=== PATIENT | female | born 1955 | race Caucasian/White ===

== ENCOUNTER 2016-10-20 17:54 | Emergency (ER) | payer OTHER, MEDICAID ==
--- NOTE | 2016-10-20 18:13 | ER Document Report ---
ED Medical Screen (RME) - General Stated Complaint: LEG PAIN Notes: Patient is a 61-year-old female who presents emergency department via EMS complaining of leg cramps. Patient has a history of dementia, multiple strokes with contractures of her lower legs due to being bed bound on/off for the past 10 years. Per EMS and per patient she was started on physical therapy to help with the contractures of her legs about 3 weeks ago and since then has been having leg cramps on and off for the past 3 weeks. Patient states that her last physical therapy was last week. Otherwise patient denies any headache, chest pain, difficulty breathing, shortness of breath, abdominal pain, nausea, vomiting, diarrhea, constipation or urinary symptoms. TRAVEL OUTSIDE OF THE [place] IN LAST 30 DAYS: No - Related Data Allergies/Adverse Reactions: No Known Allergies Allergy (Verified 01/27/12 19:02) Past Medical History - Past Medical History Cardiac Medical History: Reports: Hx Hypertension Denies: Hx Coronary Artery Disease, Hx Heart Attack Pulmonary Medical History: Denies: Hx Asthma, Hx Bronchitis, Hx COPD, Hx Pneumonia, Hx Tuberculosis Neurological Medical History: Reports: Hx Cerebrovascular Accident - 2006, FROM BACTERIAL MENINGITIS PSEUDAMONAS, Hx Seizures - LAST IN 2008 Musculoskeltal Medical History: Denies Hx Arthritis Psychiatric Medical History: Reports: Hx Dementia, Hx Depression Past Surgical History: Reports: Hx Breast Surgery - L lumpectomy, Hx Hysterectomy, Hx Orthopedic Surgery - bilateral hip replacement, R rotator cuff repair, R ankle fx and reapir - Immunizations Hx Diphtheria, Pertussis, Tetanus Vaccination: No Physical Exam - Notes Notes: PHYSICAL EXAM GENERAL: Alert, interacts well. HEAD: Normocephalic, atraumatic. EYES: Pupils equal, round, and reactive to light. Extraocular movements intact. ENT: Oral mucosa moist, tongue midline. NECK: Full range of motion. Supple. Trachea midline. LUNGS: Clear to auscultation bilaterally, no wheezes, rales, or rhonchi. No respiratory distress. HEART: Regular rate and rhythm. No murmurs, gallops, or rubs. ABDOMEN: Soft, nondistended, nontender. No guarding, rebound, or rigidity.. Bowel sounds present in all 4 quadrants. EXTREMITIES: Contractures noted in bilateral lower extremities. No edema, radial and dorsalis pedis pulses 2/4 bilaterally. No cyanosis. NEUROLOGICAL: Alert and oriented x4 PSYCH: Normal affect, normal mood. SKIN: Warm, dry, normal turgor. No rashes or lesions noted.
[2016-10-20 18:59] LABS: ANION GAP 9 (5-19); BLOOD UREA NITROGEN 11 mg/dL (7-20); CALCIUM 9.2 mg/dL (8.4-10.2); CARBON DIOXIDE 27 mmol/L (22-30); CHLORIDE 102 mmol/L (98-107); CREATININE RESULT 0.84 mg/dL (0.52-1.25); GLUCOSE 104 mg/dL (75-110); MAGNESIUM 1.9 mg/dL (1.6-2.3); POTASSIUM 4.2 mmol/L (3.6-5.0)
--- NOTE | 2016-10-20 19:39 | ER Document Report ---
ED General - General Mode of Arrival: Medic Information source: Patient TRAVEL OUTSIDE OF THE [place] IN LAST 30 DAYS: No <DASHAWN SIMPSON - Last Filed: 10/20/16 22:58> <CHIRAG MARMOLEJO - Last Filed: 10/20/16 23:08> - General Chief Complaint: Leg Pain Stated Complaint: LEG PAIN Time Seen by Provider: 10/20/16 18:13 Notes: Patient is a 61-year-old female with a past medical history significant for bacterial meningitis that presents today with complains of right leg pain. Patient has a complicated history post meningitis, including inability to walk for the last two years. Patient apparently had an inpatient stay at [facility] recently and it was decided that the patient should undergo physical therapy to reverse the right leg contractures in hopes that the patient could walk again. at bedside states they decided to stop the physical therapy because the patient felt that it was making her pain worse. ( DASHAWN SIMPSON) - Related Data Allergies/Adverse Reactions: No Known Allergies Allergy (Verified 01/27/12 19:02) Past Medical History - General Information source: Patient - Social History Smoking Status: Never Smoker Cigarette use (# per day): No Frequency of alcohol use: None Drug Abuse: None Lives with: Spouse/Significant other Family History: Reviewed & Not Pertinent - Past Medical History Cardiac Medical History: Reports: Hx Hypertension Neurological Medical History: Reports: Hx Cerebrovascular Accident - 2006, FROM BACTERIAL MENINGITIS PSEUDAMONAS, Hx Seizures - LAST IN 2008 Psychiatric Medical History: Reports: Hx Dementia, Hx Depression Past Surgical History: Reports: Hx Breast Surgery - L lumpectomy, Hx Hysterectomy, Hx Orthopedic Surgery - bilateral hip replacement, R rotator cuff repair, R ankle fx and reapir - Immunizations Hx Diphtheria, Pertussis, Tetanus Vaccination: No Hx Pneumococcal Vaccination: 03/16/11 <DASHAWN SIMPSON - Last Filed: 10/20/16 22:58> Review of Systems - Review of Systems Constitutional: No symptoms reported EENT: No symptoms reported Cardiovascular: No symptoms reported Respiratory: No symptoms reported Gastrointestinal: No symptoms reported Genitourinary: No symptoms reported Female Genitourinary: No symptoms reported Musculoskeletal: See HPI, Other - right leg pain Skin: No symptoms reported Hematologic/Lymphatic: No symptoms reported Neurological/Psychological: No symptoms reported -: Yes All other systems reviewed and negative <DASHAWN SIMPSON - Last Filed: 10/20/16 22:58> Physical Exam <DASHAWN SIMPSON - Last Filed: 10/20/16 22:58> <JANELLE MARMOLEJOMY - Last Filed: 10/20/16 23:08> - Vital signs Vitals: Temp Pulse Resp BP Pulse Ox 98.4 F 94 18 100/52 L 93 10/20/16 19:58 10/20/16 19:58 10/20/16 19:58 10/20/16 19:58 10/20/16 19:58 - Notes Notes: Physical Exam: General: Alert, appears chronically ill. HEENT: Normocephalic. Atraumatic. PERRL. Extraocular movements intact. Oropharynx clear. Neck: Supple. Non-tender. Respiratory: No respiratory distress. Clear and equal breath sounds bilaterally. Cardiovascular: Regular rate and rhythm. Abdominal: Normal Inspection. Non-tender. No distension. Normal Bowel Sounds. Back: Non-tender. No deformity or step off. Extremities: Upper extremities: Normal inspection. Normal ROM. Lower extremities: RLE contracture, pain with attempted ROM of RLE. Neurological: Normal cognition. AAOx4. Normal speech. Psychological: Normal affect. Normal Mood. Skin: Warm. Dry. Normal color. (DASHAWN SIMPSON) Course - Laboratory Result Diagrams: 10/20/16 18:25 <DASHAWN SIMPSON - Last Filed: 10/20/16 22:58> - Laboratory Result Diagrams: 10/20/16 18:25 <CHIRAG MARMOLEJO - Last Filed: 10/20/16 23:08> - Re-evaluation Re-evalutation: 10/20/16 19:41 Patient presents the emergency department with her with chief plan leg cramps. Patient had been diagnosed a few years back with bacterial meningitis and was in a coma. They were getting ready to put her on hospice and said that she had no chance of survival. Her states that she woke up from the coma and initially was walking a little bit but then eventually developed frequent episodes of falling which required her to be primarily wheelchair- bound. He has been trying to get her into assisted living facility and at some morning Cindy ordered physical therapy for her contractures after not walking for over 2 years. They stop the physical therapy last week because they were making things worse. She occasionally gets cramps in the leg and contractures which is consistent with previous. He also states she has frontal lobe dementia. On examination she is awake and alert her blood pressure is very inaccurate because she moves around constantly so it is hard to get an accurate reading. I am uncertain to whether or not that blood pressure is elevated. For that reason I want her to keep her follow-up appointment on Thursday in addition to the fact that she can no longer undergo physical therapy her family doctor skin the need to come up with a plan for her. He mentioned that she has had braces in the past on her legs to try to keep her leg straight. I explained to them that I have no knowledge of this is an emergency physician but that the family doctor can make those type of arrangements. She is also on chronic pain medications for which she takes for this. Her electrolytes are negative no clinical concerns of DVT or acute vascular compromise and the symptoms are not new or different than they have been in the past. Have her follow-up with primary care physician on Thursday and discussed reasons for ED return sooner (CHIRAG MARMOLEJO) - Vital Signs Vital signs: Temp Pulse Resp BP Pulse Ox 98.4 F 94 18 100/52 L 93 10/20/16 20:25 10/20/16 19:58 10/20/16 20:25 10/20/16 19:58 10/20/16 20:25 Discharge <DASHAWN SIMPSON - Last Filed: 10/20/16 22:58> <CHIRAG MARMOLEJO - Last Filed: 10/20/16 23:08> - Discharge Clinical Impression: muscle spasms/contractures Condition: Stable Disposition: HOME, SELF-CARE Additional Instructions: You have been seen and evaluated for muscle spasm and contractures after stopping physical therapy about a week ago. You have requested bracing which I do not know anything about in the emergency department. Physical therapy is no longer going on your electrolytes look okay I want you to see her family doctor on Thursday as scheduled to discuss options in terms of medication. I do not think that you have a blood clot at this point in time and may benefit from massage this is some to talk to the primary care physician about. Return for increasing worsening or new symptoms Referrals: IRIS PAUL MD [Primary Care Provider] - (On Thursday as scheduled. Return for increasing worsening or new symptoms) Scribe Attestation: 10/20/16 19:40 I personally performed the services described in the documentation reviewed the documentation recorded by my scribe in my presence and it accurately and completely records my words and actions (CHIRAG MARMOLEJO) Scribe Documentation - Scribe Written by Scrmatthew:: Tiff Mims, 10/20/2016 2255 acting as scribe for :: Angel <DASHAWN SIMPSON - Last Filed: 10/20/16 22:58>
[2016-10-20 19:59] VITALS: BP 100/52
== END 2016-10-20 22:00 | disposition home or self-care (01) ==
LOC: ER 17:54
DX: M62.461 Contracture of muscle, right lower leg (principal); M62.838 Other muscle spasm; M79.604 Pain in right leg
CPT/HCPCS: 36415; 80048; 83735; 99283

== ENCOUNTER 2016-12-16 11:59 | Inpatient (IN) | payer OTHER, MEDICAID ==
[2016-12-16 12:31] LABS: PROTHROMBIN TIME 12.8 SEC (11.4-15.4)
[2016-12-16 12:39] LABS: ABSOLUTE BASOPHILS # (AUTO) 0.1 10^3/uL (0.0-0.2); ABSOLUTE EOSINOPHILS # (AUTO) 0.1 10^3/uL (0.0-0.6); ABSOLUTE LYMPHOCYTES (AUTO) 1.8 10^3/uL (0.5-4.7); ABSOLUTE MONOCYTES (AUTO) 0.7 10^3/uL (0.1-1.4); ABSOLUTE NEUT (AUTO) 4.7 10^3/uL (1.7-8.2); BASOPHILS % (AUTO) 0.7 % (0-2); EOSINOPHILS % (AUTO) 1.6 % (0-6); HEMATOCRIT 40.6 % (36.0-47.0); HEMOGLOBIN 13.7 g/dL (12.0-15.5); HGB HCT DIFFERENCE 0.5; LYMPHOCYTES % (AUTO) 24.4 % (13-45); MEAN CORPUSCULAR HEMOGLOBIN 27.8 pg (27.0-33.4); MEAN CORPUSCULAR HGB CONC 33.6 g/dL (32.0-36.0); MEAN CORPUSCULAR VOLUME 83 fl (80-97); MONOCYTES % (AUTO) 9.8 % (3-13); RED BLOOD COUNT 4.91 10^6/uL (3.72-5.28); RED CELL DISTRIBUTION WIDTH 16.1 % (11.5-14.0); SEGMENTED NEUTROPHILS % (AUTO) 63.5 % (42-78); WHITE BLOOD COUNT 7.4 10^3/uL (4.0-10.5)
--- NOTE | 2016-12-16 12:42 | ER Document Report ---
ED General - General Stated Complaint: POSSIBLE STROKE Time Seen by Provider: 12/16/16 12:06 Mode of Arrival: Medic Information source: Patient, Relative, Emergency Med Personnel Cannot obtain history due to: Other Notes: 61-year-old female history of pseudomonal bacterial meningitis with seizure disorder and strokes with contractures presents with seizure-like activity. Symptoms started approximately an hour prior to arrival. Patient found to be having shaking episodes was given medication by EMS and symptoms have since resolved. TRAVEL OUTSIDE OF THE [place] IN LAST 30 DAYS: No - HPI Onset: Just prior to arrival Onset/Duration: Sudden Quality of pain: No pain Severity: Moderate Pain Level: Denies Associated symptoms: Other Exacerbated by: Denies Relieved by: Denies Similar symptoms previously: Yes Recently seen / treated by doctor: Yes - Related Data Allergies/Adverse Reactions: No Known Allergies Allergy (Verified 01/27/12 19:02) Past Medical History - Social History Smoking Status: Never Smoker Cigarette use (# per day): No Chew tobacco use (# tins/day): No Smoking Education Provided: No Family History: Reviewed & Not Pertinent - Past Medical History Cardiac Medical History: Reports: Hx Hypertension Denies: Hx Coronary Artery Disease, Hx Heart Attack Pulmonary Medical History: Denies: Hx Asthma, Hx Bronchitis, Hx COPD, Hx Pneumonia, Hx Tuberculosis Neurological Medical History: Reports: Hx Cerebrovascular Accident - 2006, FROM BACTERIAL MENINGITIS PSEUDAMONAS, Hx Seizures - LAST IN 2008 Musculoskeltal Medical History: Denies Hx Arthritis Psychiatric Medical History: Reports: Hx Dementia, Hx Depression Past Surgical History: Reports: Hx Breast Surgery - L lumpectomy, Hx Hysterectomy, Hx Orthopedic Surgery - bilateral hip replacement, R rotator cuff repair, R ankle fx and reapir - Immunizations Hx Diphtheria, Pertussis, Tetanus Vaccination: No Hx Pneumococcal Vaccination: 03/16/11 Review of Systems - Review of Systems Notes: REVIEW OF SYSTEMS: CONSTITUTIONAL : Denies fever, chills, or sweats. Denies recent illness. EENT: Denies eye, ear, throat, or mouth pain or symptoms. Denies nasal or sinus congestion or discharge. Denies throat, tongue, or mouth swelling or difficulty swallowing. CARDIOVASCULAR: Denies chest pain. Denies palpitations or racing or irregular heart beat. Denies ankle edema. RESPIRATORY: Denies cough, cold, or chest congestion. Denies shortness of breath, difficulty breathing, or wheezing. GASTROINTESTINAL: Denies abdominal pain or distention. Denies nausea, vomiting , or diarrhea. Denies blood in vomitus, stools, or per rectum. Denies black, tarry stools. Denies constipation. GENITOURINARY: Denies difficulty urinating, painful urination, burning, frequency, blood in urine, or discharge. FEMALE GENITOURINARY: Denies vaginal bleeding, heavy or abnormal periods, irregular periods. Denies vaginal discharge or odor. MUSCULOSKELETAL: Denies back or neck pain or stiffness. Denies joint pain or swelling. SKIN: Denies rash, lesions or sores. HEMATOLOGIC : Denies easy bruising or bleeding. LYMPHATIC: Denies swollen, enlarged glands. NEUROLOGICAL: Seizure PSYCHIATRIC: Denies anxiety or stress. Denies depression, suicidal ideation, or homicidal ideation. ALL OTHER SYSTEMS REVIEWED AND NEGATIVE. PHYSICAL EXAMINATION: GENERAL: Chronically ill female HEAD: Atraumatic, normocephalic. EYES: Pupils equal round and reactive to light, extraocular movements intact, conjunctiva are normal. ENT: Nares patent, oropharynx clear without exudates. Moist mucous membranes. NECK: Normal range of motion, supple without lymphadenopathy LUNGS: Breath sounds clear to auscultation bilaterally and equal. No wheezes rales or rhonchi. HEART: Regular rate and rhythm without murmurs ABDOMEN: Soft, nontender, nondistended abdomen. No guarding, no rebound. No masses appreciated. Female : deferred Musculoskeletal: Bedbound contractures of the lower extremities. NEUROLOGICAL: Patient appears postictal PSYCH: Normal mood, normal affect. SKIN: Warm, Dry, normal turgor, no rashes or lesions noted. Dictation was performed using [employer] voice recognition software Physical Exam - Vital signs Vitals: Pulse Ox 95 12/16/16 12:01 Course - Re-evaluation Re-evalutation: 12/16/16 12:51 Patient immediately had stroke protocol performed I believe this may be secondary to seizure activity 12/16/16 13:49 pt continues to have seizure like actiivty after 12/16/16 13:50 [facility] paged 12/16/16 14:05 Dr Damon wants dilantin 20mg/kg loading dose 12/16/16 14:07 They will have hospitalist call me, for the placement 12/16/16 14:28 [facility] 10 12/16/16 14:29 Dr Walls accepts for transfer - Vital Signs Vital signs: Temp Pulse Resp BP Pulse Ox 14 143/60 H 90 L 12/16/16 13:01 12/16/16 13:01 12/16/16 13:01 - Laboratory Result Diagrams: 12/16/16 12:10 12/16/16 12:10 Laboratory results interpreted by me: 12/16/16 12/16/16 12/16/16 12:10 12:10 12:10 RDW 16.1 H Direct Bilirubin 0.5 H TSH 0.06 L Free T4 2.37 H - Diagnostic Test Radiology reviewed: Image reviewed, Reports reviewed Discharge - Discharge Clinical Impression: Status epilepticus Condition: Fair Disposition: [facility] Referrals: IRIS PAUL MD [Primary Care Provider] - Follow up as needed
--- NOTE | 2016-12-16 12:45 | RADIOLOGY REPORT (SQ) ---
EXAM DESCRIPTION: CT HEAD WITHOUT COMPLETED DATE/TIME: 12/16/2016 12:22 pm REASON FOR STUDY: bed t1 stroke alert COMPARISON: [address] brain exams since 2006, most recently 01/27/2012 MRI brain 03/04/2007 TECHNIQUE: Axial images acquired through the brain without intravenous contrast. Images reviewed wi th bone, brain and subdural windows. Images stored on PACS. All CT scanners at this facility use dose modulation, iterative reconstruction, and/or weight based d osing when appropriate to reduce radiation dose to as low as reasonably achievable (ALARA). [facility]: Dose Right [facility]: CareDose [facility]: Dose Right [facility]: Teradose 4D [facility]: [employer] Technologies RADIATION DOSE: Up-to-date CT equipment and radiation dose reduction techniques were employed. CTDIv ol: 64.6 mGy. DLP: 1163 mGy-cm. mGy. LIMITATIONS: Motion artifact FINDINGS: Motion artifact throughout the study. On limited images without motion artifact, no gross CT evidence of acute large territory ischemic vj nge, acute intracranial hemorrhage, mass effect, or midline shift. There is subcortical white matter disease throughout the bilateral frontal and parietal lobes, in a d istribution suggesting watershed ischemia in the past. This is similar compared to previous studies. Old lacunar infarct right lateral basal ganglia. There is prominence of the anterior interhemispheric fissure from frontal atrophy, similar compared t o previous studies. Limited view of the calvarium and sinuses unremarkable. IMPRESSION: Motion artifact. No gross acute changes. Extensive subcortical white matter low attenuation in the bifrontal and biparietal regions in a osmin agittal watershed distribution from remote prior ischemic change. This is similar compared to studie s dating back to 2006 EVIDENCE OF ACUTE STROKE: NO. COMMENT: Pertinent findings on the imaging study reported as a CRITICAL RESULT to MENDEZ BLOOM DO at12:20 on 12/16/2016. Category of Critical Result: CT code stroke Quality ID # [id number]: Final reports with documentation of one or more dose reduction techniques (e.g., Au tomated exposure control, adjustment of the mA and/or kV according to patient size, use of iterative reconstruction technique) TECHNICAL DOCUMENTATION: JOB ID: [id number] 1960[employer] All Rights Reserved
[2016-12-16 12:53] LABS: ALANINE AMINOTRANSFERASE 22 U/L (9-52); ALKALINE PHOSPHATASE 89 U/L (38-126); ANION GAP 14 (5-19); ASPARTATE AMINO TRANSFERASE 18 U/L (14-36); BILIRUBIN,DIRECT 0.5 mg/dL (0.0-0.4); BILIRUBIN,TOTAL 0.5 mg/dL (0.2-1.3); BLOOD UREA NITROGEN 13 mg/dL (7-20); CARBON DIOXIDE 22 mmol/L (22-30); CHLORIDE 103 mmol/L (98-107); CREATINE KINASE 64 U/L (30-135); CREATININE RESULT 0.72 mg/dL (0.52-1.25); GLUCOSE 104 mg/dL (75-110); POTASSIUM 3.8 mmol/L (3.6-5.0); SODIUM 139.4 mmol/L (137-145); TOTAL PROTEIN 6.6 g/dL (6.3-8.2)
[2016-12-16 13:11] LABS: CREATINE KINASE MB 1.09 ng/mL (<4.55)
[2016-12-16 13:12] LABS: TROPONIN I < 0.012 ng/mL
[2016-12-16] MEDS ORDERED: LORAZEPAM INJ 2 MG/1 ML VIAL IV ONE (13:41)
[2016-12-16] MEDS ORDERED: LORAZEPAM INJ 2 MG/1 ML VIAL ONE (13:44)
[2016-12-16] MEDS ORDERED: LEVETIRACETAM 1500 MG/NACL-ISO 1,500 MG/100 ML RTUPB IV SCH (13:45)
[2016-12-16] MEDS ORDERED: DIAZEPAM INJ 10 MG/2 ML DISP.SYRIN IV ONE (13:50)
[2016-12-16 13:58] LABS: FREE T3 3.69 pg/mL (2.77-5.27)
[2016-12-16] MEDS ORDERED: PHENYTOIN SODIUM INJ/PF 250 MG/5 ML SDV IV ONE (14:07)
--- NOTE | 2016-12-16 14:07 | RADIOLOGY REPORT (SQ) ---
EXAM DESCRIPTION: CHEST SINGLE VIEW COMPLETED DATE/TIME: 12/16/2016 1:36 pm REASON FOR STUDY: bed t1 stroke alert COMPARISON: CT chest 08/02/2013 AP chest 10/16/2015 EXAM PARAMETERS: NUMBER OF VIEWS: One view. TECHNIQUE: Single frontal radiographic view of the chest acquired. RADIATION DOSE: NA LIMITATIONS: None. FINDINGS: LUNGS AND PLEURA: No opacities, masses or pneumothorax. No pleural effusion. MEDIASTINUM AND HILAR STRUCTURES: Retrocardiac air-fluid levels from moderate size hiatal hernia. HEART AND VASCULAR STRUCTURES: Heart normal in size. Normal vasculature. BONES: No acute findings. HARDWARE: None in the chest. OTHER: No other significant finding. IMPRESSION: MODERATE SIZE HIATAL HERNIA. NO ACUTE RADIOGRAPHIC FINDING IN THE CHEST. TECHNICAL DOCUMENTATION: JOB ID: [id number]
[2016-12-16 14:12] LABS: THYROID STIMULATING HORMONE 0.06 uIU/mL (0.47-4.68)
[2016-12-16] MEDS ORDERED: HALOPERIDOL LACTATE INJ 5 MG/1 ML VIAL IV ONE (15:05)
[2016-12-16] MEDS ORDERED: DIPHENHYDRAMINE HCL 50 MG/ML VIAL IV ONE (15:06)
[2016-12-16 15:23] LABS: APPEARANCE,URINE CLEAR; BILIRUBIN,URINE NEGATIVE (NEGATIVE); GLUCOSE, URINE NEGATIVE (NEGATIVE); KETONES,URINE TRACE mg/dL (NEGATIVE); LEUKOCYTE ESTERASE,URINE NEGATIVE (NEGATIVE); NITRITE,URINE NEGATIVE (NEGATIVE); PROTEIN,URINE NEGATIVE (NEGATIVE); URINE SPECIFIC GRAVITY 1.014; UROBILINOGEN,URINE NEGATIVE mg/dL (<2.0)
[2016-12-16] MEDS ORDERED: FENTANYL CITRATE INJ/PF 100 MCG/2 ML AMPUL IV ONE (15:40)
[2016-12-16] MEDS ORDERED: FENTANYL 100 MCG/HR PATCH.TD72 TD ONE (15:41)
--- NOTE | 2016-12-16 18:19 | EKG REPORT ---
SEVERITY:- NORMAL ECG - SINUS RHYTHM : Confirmed by: Lisset Price MD 16-Dec-2016 18:18:41
--- NOTE | 2016-12-16 18:29 | PDOC H&P ---
History of Present Illness Admission Date/PCP: IRIS PAUL MD Patient complains of: Seizures History of Present Illness: MARIE SEGURA is a 61 year old female into the emergency room due to change in mental status. Per ER when patient was seen in the emergency department patient was in status. Pt was loaded with Phenytoin and Keppra. Pt was accepted to outside but no bed available. Outside facility states that they would be able to take patient in 24-48 hours. Past Medical History Cardiac Medical History: Reports: Hypertension Denies: Coronary Artery Disease, Myocardial Infarction Pulmonary Medical History: Denies: Asthma, Bronchitis, Chronic Obstructive Pulmonary Disease (COPD), Pneumonia, Tuberculosis Neurological Medical History: Reports: Seizures - LAST IN 2008 Musculoskeltal Medical History: Denies: Arthritis Psychiatric Medical History: Reports: Dementia, Depression Hematology: Reports: Anemia Past Surgical History Past Surgical History: Reports: Hysterectomy, Orthopedic Surgery - bilateral hip replacement, R rotator cuff repair, R ankle fx and reapir Social History Smoking Status: Never Smoker Frequency of Alcohol Use: None Hx Recreational Drug Use: No Hx Prescription Drug Abuse: No Family History Family History: Reviewed & Not Pertinent Parental Family History Reviewed: No - Due to mental status Children Family History Reviewed: NA - Due to mental status Sibling(s) Family History Reviewed.: NA - Due to mental status Medication/Allergy Allergies/Adverse Reactions: No Known Allergies Allergy (Verified 01/27/12 19:02) Review of Systems ROS unobtainable: Due to mental status - Patient moving extremities babbling looking around the room nurse states that reports that this is her normal behavior but patient not able to answer questions to review of systems Physical Exam Vital Signs: Temp Pulse Resp BP Pulse Ox 97 21 H 160/93 H 96 12/16/16 11:59 12/16/16 17:00 12/16/16 16:01 12/16/16 15:01 Intake & Output 12/15/16 12/16/16 12/17/16 06:59 06:59 06:59 Weight 85.6 kg General appearance: PRESENT: mild distress, well-developed, well-nourished, other - Patient lying in bed moving all extremities looking around room babbling Head exam: PRESENT: atraumatic, normocephalic Eye exam: PRESENT: conjunctiva pink, EOMI. ABSENT: scleral icterus Ear exam: PRESENT: normal external ear exam Mouth exam: PRESENT: moist, tongue midline Neck exam: ABSENT: carotid bruit, JVD, lymphadenopathy, thyromegaly Respiratory exam: PRESENT: clear to auscultation michael. ABSENT: rales, rhonchi, wheezes Cardiovascular exam: PRESENT: RRR. ABSENT: diastolic murmur, rubs, systolic murmur Pulses: PRESENT: normal dorsalis pedis pul Vascular exam: PRESENT: normal capillary refill GI/Abdominal exam: PRESENT: normal bowel sounds, soft. ABSENT: distended, guarding, mass, organolmegaly, rebound, tenderness Rectal exam: PRESENT: deferred Extremities exam: PRESENT: full ROM. ABSENT: calf tenderness, clubbing, pedal edema Neurological exam: PRESENT: alert, awake Psychiatric exam: PRESENT: agitated Skin exam: PRESENT: dry, intact, warm. ABSENT: cyanosis, rash Results Laboratory Results: 12/16/16 12:10 12/16/16 12:10 12/16/16 12/16/16 12/16/16 12:10 12:10 12:10 WBC 7.4 RBC 4.91 Hgb 13.7 Hct 40.6 MCV 83 MCH 27.8 MCHC 33.6 RDW 16.1 H Plt Count 244 Seg Neutrophils % 63.5 Lymphocytes % 24.4 Monocytes % 9.8 Eosinophils % 1.6 Basophils % 0.7 Absolute Neutrophils 4.7 Absolute Lymphocytes 1.8 Absolute Monocytes 0.7 Absolute Eosinophils 0.1 Absolute Basophils 0.1 Sodium 139.4 Potassium 3.8 Chloride 103 Carbon Dioxide 22 Anion Gap 14 BUN 13 Creatinine 0.72 Est GFR ( Amer) > 60 Est GFR (Non-Af Amer) > 60 Glucose 104 Calcium 10.0 Total Bilirubin 0.5 AST 18 ALT 22 Alkaline Phosphatase 89 Total Protein 6.6 Albumin 4.0 TSH 0.06 L Free T4 2.37 H Free T3 pg/mL 3.69 Urine Color Urine Appearance Urine pH Ur Specific Rosalia Urine Protein Urine Glucose (UA) Urine Ketones Urine Blood Urine Nitrite Ur Leukocyte Esterase Urine WBC (Auto) Urine RBC (Auto) 12/16/16 14:52 WBC RBC Hgb Hct MCV MCH MCHC RDW Plt Count Seg Neutrophils % Lymphocytes % Monocytes % Eosinophils % Basophils % Absolute Neutrophils Absolute Lymphocytes Absolute Monocytes Absolute Eosinophils Absolute Basophils Sodium Potassium Chloride Carbon Dioxide Anion Gap BUN Creatinine Est GFR ( Amer) Est GFR (Non-Af Amer) Glucose Calcium Total Bilirubin AST ALT Alkaline Phosphatase Total Protein Albumin TSH Free T4 Free T3 pg/mL Urine Color YELLOW Urine Appearance CLEAR Urine pH 6.0 Ur Specific Rosalia 1.014 Urine Protein NEGATIVE Urine Glucose (UA) NEGATIVE Urine Ketones TRACE H Urine Blood NEGATIVE Urine Nitrite NEGATIVE Ur Leukocyte Esterase NEGATIVE Urine WBC (Auto) 1 Urine RBC (Auto) 0 12/16/16 12/16/16 12:10 12:10 Creatine Kinase 64 CK-MB (CK-2) 1.09 Troponin I < 0.012 Impressions: Chest X-Ray 12/16/16 12:02 IMPRESSION: MODERATE SIZE HIATAL HERNIA. NO ACUTE RADIOGRAPHIC FINDING IN THE CHEST. Head CT 12/16/16 12:02 IMPRESSION: Motion artifact. No gross acute changes. Extensive subcortical white matter low attenuation in the bifrontal and biparietal regions in a parasagittal watershed distribution from remote prior ischemic change. This is similar compared to studies dating back to 2006 EVIDENCE OF ACUTE STROKE: NO. Assessment & Plan - Diagnosis (1) Status epilepticus Is this a current diagnosis for this admission?: Yes Plan: Continue phenytoin and Keppra. Patient received loading dose of phenytoin in the emergency department (2) History of seizure disorder Is this a current diagnosis for this admission?: Yes Plan: Patient loaded with phenytoin and Keppra. Will contact pharmacy for maintenance dose of phenytoin. Continue Keppra. (3) History of meningitis Is this a current diagnosis for this admission?: Yes Plan: supportive (4) History of CVA (cerebrovascular accident) Is this a current diagnosis for this admission?: Yes Plan: supportive care (5) DVT prophylaxis Is this a current diagnosis for this admission?: Yes Plan: SCDS - Time Time Spent: 30 to 50 Minutes Anticipated discharge: Other
[2016-12-16] MEDS: LORAZEPAM INJ 2 MG/1 ML VIAL IV PRN (20:30)
[2016-12-16] MEDS: ACETAMINOPHEN 650 MG SUPP.RECT PR PRN (21:28)
[2016-12-16] MEDS: MORPHINE SULFATE 10 MG/ML INJ IV PRN (22:59)
[2016-12-16] MEDS: PHENYTOIN SODIUM INJ/PF 100 MG/2 ML SDV IV SCH (23:46)
[2016-12-17 00:57] LABS: URINE BARBITURATES SCREEN NEGATIVE; URINE METHADONE SCREEN NEGATIVE; URINE PHENCYCLIDINE SCREEN NEGATIVE
[2016-12-17 01:04] LABS: URINE OPIATES LOW UNCONFIRMED POSITIVE
[2016-12-17] MEDS: MORPHINE SULFATE 10 MG/ML INJ IV PRN ×3 (02:45→20:35)
[2016-12-17] MEDS ORDERED: LEVETIRACETAM INJ/PF 500 MG/5 ML SDV IV SCH (03:00)
[2016-12-17] MEDS ORDERED: LEVETIRACETAM 750 MG in NORMAL SALINE 100 ML IV SCH (03:00)
[2016-12-17] MEDS ORDERED: LEVETIRACETAM INJ/PF 500 MG/5 ML SDV IV ONE (03:22)
[2016-12-17 04:22] LABS: ABSOLUTE BASOPHILS # (AUTO) 0.1 10^3/uL (0.0-0.2); ABSOLUTE LYMPHOCYTES (AUTO) 1.5 10^3/uL (0.5-4.7); ABSOLUTE NEUT (AUTO) 7.9 10^3/uL (1.7-8.2); BASOPHILS % (AUTO) 0.6 % (0-2); HEMATOCRIT 37.1 % (36.0-47.0); HEMOGLOBIN 12.7 g/dL (12.0-15.5); LYMPHOCYTES % (AUTO) 14.3 % (13-45); MEAN CORPUSCULAR HEMOGLOBIN 27.9 pg (27.0-33.4); MEAN CORPUSCULAR HGB CONC 34.1 g/dL (32.0-36.0); MEAN CORPUSCULAR VOLUME 82 fl (80-97); MONOCYTES % (AUTO) 9.6 % (3-13); RED BLOOD COUNT 4.54 10^6/uL (3.72-5.28); SEGMENTED NEUTROPHILS % (AUTO) 75.5 % (42-78); WHITE BLOOD COUNT 10.5 10^3/uL (4.0-10.5)
[2016-12-17 04:27] LABS: ALANINE AMINOTRANSFERASE 30 U/L (9-52); ALKALINE PHOSPHATASE 88 U/L (38-126); ANION GAP 13 (5-19); ASPARTATE AMINO TRANSFERASE 25 U/L (14-36); BILIRUBIN,DIRECT 0.4 mg/dL (0.0-0.4); BILIRUBIN,TOTAL 0.6 mg/dL (0.2-1.3); BLOOD UREA NITROGEN 12 mg/dL (7-20); CALCIUM 9.6 mg/dL (8.4-10.2); CARBON DIOXIDE 24 mmol/L (22-30); CHLORIDE 108 mmol/L (98-107); CREATININE RESULT 0.78 mg/dL (0.52-1.25); GLUCOSE 159 mg/dL (75-110); MAGNESIUM 1.7 mg/dL (1.6-2.3); POTASSIUM 3.8 mmol/L (3.6-5.0); SODIUM 144.8 mmol/L (137-145); TOTAL PROTEIN 6.5 g/dL (6.3-8.2)
[2016-12-17 05:12] LABS: THYROID STIMULATING HORMONE 0.02 uIU/mL (0.47-4.68)
[2016-12-17] MEDS: PHENYTOIN SODIUM INJ/PF 100 MG/2 ML SDV IV SCH ×4 (05:16→23:52)
[2016-12-17] MEDS: LORAZEPAM INJ 2 MG/1 ML VIAL IV PRN ×2 (11:00→20:19)
[2016-12-17 11:10] LABS: APPEARANCE ALL TUBES CLEAR; RBC AVERAGE 34.5; RBC DILUENT USED NONE USED; RBC DILUTION FACTOR 1; RBC SIDE 1 38; RBC SIDE 2 31; TOTAL RBC SQUARES COUNTED 225
[2016-12-17 11:11] LABS: WHITE BLOOD CELL,CSF 3 /uL (0-5)
[2016-12-17] MEDS ORDERED: VANCOMYCIN HCL INJ 1000 MG VIAL IV ONE (11:15)
[2016-12-17 11:23] LABS: H. INFLUENZAE TYPE B AG NEGATIVE (NEGATIVE); S. PNEUMONIAE AG NEGATIVE (NEGATIVE); STREP. GROUP B AG NEGATIVE (NEGATIVE)
[2016-12-17 11:26] LABS: CSF CULTURED REQUIRED CSF CULTURE ORDERED (CSFY)
[2016-12-17] MEDS ORDERED: VANCOMYCIN HCL 0 MG in DEXTROSE 5%-WATER 250 ML IV NR (11:30)
--- NOTE | 2016-12-17 11:48 | PDOC PROGRESS REPORT ---
Subjective Progress Note for:: 12/17/16 Subjective:: She was seen earlier this morning. Nursing reports the patient has multiple fevers throughout night. Nursing also reports the patient has been yelling out throughout the night and this morning. When patient was admitted yesterday ER did not report that patient was febrile nor were there any documentation to support that patient was febrile. Family was present at time of my encounter. Patient denied any neck pain and denied any eye photosensitivity. Physical Exam Vital Signs: Temp Pulse Resp BP Pulse Ox 99.9 F 106 H 20 126/67 H 96 12/17/16 08:00 12/17/16 07:54 12/17/16 08:25 12/17/16 08:25 12/17/16 08:25 Intake & Output 12/16/16 12/17/16 12/18/16 06:59 06:59 06:59 Output Total 730 230 Balance -730 -230 Weight 86.1 kg General appearance: PRESENT: well-developed, well-nourished, other - Laying in bed yelling however patient was following commands and able to answer yes and no questions Head exam: PRESENT: atraumatic, normocephalic Eye exam: PRESENT: conjunctiva pink, EOMI. ABSENT: scleral icterus Ear exam: PRESENT: normal external ear exam Mouth exam: PRESENT: moist, tongue midline Neck exam: ABSENT: carotid bruit, JVD, lymphadenopathy, thyromegaly Respiratory exam: PRESENT: clear to auscultation michael. ABSENT: rales, rhonchi, wheezes Cardiovascular exam: PRESENT: RRR. ABSENT: diastolic murmur, rubs, systolic murmur Pulses: PRESENT: normal dorsalis pedis pul Vascular exam: PRESENT: normal capillary refill GI/Abdominal exam: PRESENT: normal bowel sounds, soft. ABSENT: distended, guarding, mass, organolmegaly, rebound, tenderness Rectal exam: PRESENT: deferred Extremities exam: PRESENT: full ROM. ABSENT: calf tenderness, clubbing, pedal edema Neurological exam: PRESENT: alert, awake, oriented to person Psychiatric exam: PRESENT: agitated Skin exam: PRESENT: dry, intact, warm. ABSENT: cyanosis, rash Results Laboratory Results: 12/17/16 03:56 12/17/16 03:56 12/17/16 12/17/16 12/17/16 03:56 03:56 03:56 WBC 10.5 RBC 4.54 Hgb 12.7 Hct 37.1 MCV 82 MCH 27.9 MCHC 34.1 RDW 16.0 H Plt Count 221 Seg Neutrophils % 75.5 Lymphocytes % 14.3 Monocytes % 9.6 Eosinophils % 0.0 Basophils % 0.6 Absolute Neutrophils 7.9 Absolute Lymphocytes 1.5 Absolute Monocytes 1.0 Absolute Eosinophils 0.0 Absolute Basophils 0.1 Sodium 144.8 Potassium 3.8 Chloride 108 H Carbon Dioxide 24 Anion Gap 13 BUN 12 Creatinine 0.78 Est GFR ( Amer) > 60 Est GFR (Non-Af Amer) > 60 Glucose 159 H Calcium 9.6 Magnesium 1.7 Total Bilirubin 0.6 AST 25 ALT 30 Alkaline Phosphatase 88 Total Protein 6.5 Albumin 4.0 TSH 0.02 L Free T4 2.68 H Fluid Tube Number CSF Volume CSF Appearance CSF Color CSF WBC CSF RBC CSF Glucose CSF Total Protein 12/17/16 12/17/16 12/17/16 10:10 10:10 10:10 WBC RBC Hgb Hct MCV MCH MCHC RDW Plt Count Seg Neutrophils % Lymphocytes % Monocytes % Eosinophils % Basophils % Absolute Neutrophils Absolute Lymphocytes Absolute Monocytes Absolute Eosinophils Absolute Basophils Sodium Potassium Chloride Carbon Dioxide Anion Gap BUN Creatinine Est GFR ( Amer) Est GFR (Non-Af Amer) Glucose Calcium Magnesium Total Bilirubin AST ALT Alkaline Phosphatase Total Protein Albumin TSH Free T4 Fluid Tube Number 3 CSF Volume 6.0 CSF Appearance CLEAR CSF Color COLORLESS CSF WBC 3 CSF RBC 38 CSF Glucose 104 H CSF Total Protein 42 Impressions: Chest X-Ray 12/16/16 12:02 IMPRESSION: MODERATE SIZE HIATAL HERNIA. NO ACUTE RADIOGRAPHIC FINDING IN THE CHEST. Head CT 12/16/16 12:02 IMPRESSION: Motion artifact. No gross acute changes. Extensive subcortical white matter low attenuation in the bifrontal and biparietal regions in a parasagittal watershed distribution from remote prior ischemic change. This is similar compared to studies dating back to 2007 EVIDENCE OF ACUTE STROKE: NO. Assessment & Plan - Diagnosis (1) Status epilepticus Is this a current diagnosis for this admission?: Yes Plan: We will continue patient on phenytoin and Keppra. Patient appears to be at baseline. Awaiting family to help confirm the patient is currently at baseline. There has been no further episodes of seizure activity. Awaiting transfer to [facility] for continuation of care. (2) Meningitis Is this a current diagnosis for this admission?: Yes Plan: Concern for meningitis: Patient had LP done this morning due to patient's persistent fevers. Patient's blood cultures and urine culture are pending. We will place patient on Rocephin and vancomycin. (3) Viral illness Is this a current diagnosis for this admission?: Yes Plan: Concern for possible viral syndrome: We will check for flu. Viral studies pending. (4) History of seizure disorder Is this a current diagnosis for this admission?: Yes Plan: We will continue phenytoin and Keppra (5) History of meningitis Is this a current diagnosis for this admission?: Yes Plan: Supportive. (6) Hyperthyroidism Is this a current diagnosis for this admission?: Yes Plan: Secondary to Medication: Will reduce dose of Synthroid. (7) Hypothyroidism Is this a current diagnosis for this admission?: Yes Plan: Will reduce dose of synthroid. (8) History of CVA (cerebrovascular accident) Is this a current diagnosis for this admission?: Yes Plan: supportive care (9) DVT prophylaxis Is this a current diagnosis for this admission?: Yes Plan: SCDS - Time Time Spent with patient: 25-34 minutes Anticipated discharge: [facility] - Plan is to transfer patient to [facility] once bed is available
--- NOTE | 2016-12-17 12:05 | RADIOLOGY REPORT (SQ) ---
EXAM DESCRIPTION: LUMBAR PUNCTURE; FLUORO/NEEDLE PLACEMENT/SPINE COMPLETED DATE/TIME: 12/17/2016 10:20 am REASON FOR STUDY: Concern for Meningitis; MENINGITIS COMPARISON: CT brain 12/16/2016 FLUOROSCOPY TIME: 22 seconds 1 digital radiographic image saved to PACS. TECHNIQUE: Fluoroscopic guided lumbar puncture. LIMITATIONS: None. PROCEDURE: After written consent and assessment were obtained, the patient was brought into the fluo roscopy room and placed prone on the table. The patient's lower back was prepped in a sterile fashio n and an entry site was selected under live fluoroscopic guidance. The entry site was anesthetized wi th 2 mL of 1% lidocaine. A 20 gauge needle was advanced through the skin and into the thecal sac at t he right paracentral L2-3 level. After approximately 6 ml was drained, the needle was removed and a sterile bandage was placed of the site. Specimens were sent to the lab for testing. A fluoroscopic spot image was saved to PACS confirming level access. FINDINGS: Clear CSF Opening pressure 10 cm of water, closing pressure 9 cm of water. IMPRESSION: Lumbar puncture under fluoroscopy. No immediate complication. COMMENT: Patient medication list reviewed: Yes- Quality ID# [id number]:Eligible professional attests to doc umenting in the medical record they obtained, updated, or reviewed the patient's current medications. . Quality ID 145: Final reports for procedures using fluoroscopy that document radiation exposure marizol kelsey, or exposure time and number of fluorographic images (if radiation exposure indices are not avail able) TECHNICAL DOCUMENTATION: JOB ID: [id number] [employer]- All Rights Reserved
[2016-12-17] MEDS ORDERED: CEFTRIAXONE 2 GM/D5W RTU 2 GM/50 ML RTUPB IV ONE (12:15)
[2016-12-17] MEDS ORDERED: VANCOMYCIN HCL 1,250 MG in DEXTROSE 5%-WATER 250 ML IV ONE (12:30)
[2016-12-17] MEDS: LEVETIRACETAM 750 MG in NORMAL SALINE 100 ML IV SCH (17:01)
[2016-12-17] MEDS: ACETAMINOPHEN 650 MG SUPP.RECT PR PRN (20:18)
[2016-12-17] MEDS: VANCOMYCIN HCL 1,000 MG in DEXTROSE 5%-WATER 250 ML IV SCH (21:58)
[2016-12-18] MEDS: LORAZEPAM INJ 2 MG/1 ML VIAL IV PRN ×2 (02:00→10:50)
[2016-12-18] MEDS: LEVETIRACETAM 750 MG in NORMAL SALINE 100 ML IV SCH ×2 (06:07→17:26)
[2016-12-18] MEDS: PHENYTOIN SODIUM INJ/PF 100 MG/2 ML SDV IV SCH ×3 (06:07→17:26)
[2016-12-18] MEDS: VANCOMYCIN HCL 1,000 MG in DEXTROSE 5%-WATER 250 ML IV SCH ×2 (09:45→21:17)
[2016-12-18] MEDS: MORPHINE SULFATE 10 MG/ML INJ IV PRN (09:45)
[2016-12-18] MEDS ORDERED: METOPROLOL TARTRATE 25 MG TABLET PO ONE (12:00)
[2016-12-18] MEDS ORDERED: CLONAZEPAM 1 MG TABLET PO ONE (12:00)
--- NOTE | 2016-12-18 12:00 | PDOC PROGRESS REPORT ---
Subjective Progress Note for:: 12/18/16 Subjective:: Nursing reports the patient is still febrile and tachycardic. Patient states that she is starting to feel better. Physical Exam Vital Signs: Temp Pulse Resp BP Pulse Ox 99.9 F 128 H 20 138/117 H 95 12/17/16 08:00 12/18/16 08:00 12/18/16 08:23 12/18/16 08:23 12/18/16 08:23 Intake & Output 12/17/16 12/18/16 12/19/16 06:59 06:59 06:59 Intake Total 1580 710 Output Total 730 1835 120 Balance -730 -255 590 Weight 86.1 kg 87.1 kg General appearance: PRESENT: no acute distress, disheveled, well-developed, well -nourished Head exam: PRESENT: atraumatic, normocephalic Eye exam: PRESENT: conjunctiva pink, EOMI. ABSENT: scleral icterus Ear exam: PRESENT: normal external ear exam Mouth exam: PRESENT: moist, tongue midline Neck exam: ABSENT: carotid bruit, JVD, lymphadenopathy, thyromegaly Respiratory exam: PRESENT: clear to auscultation michael. ABSENT: rales, rhonchi, wheezes Cardiovascular exam: PRESENT: tachycardia, other - Regular rate and rhythm no murmurs appreciated Pulses: PRESENT: normal dorsalis pedis pul Vascular exam: PRESENT: normal capillary refill GI/Abdominal exam: PRESENT: normal bowel sounds, soft. ABSENT: distended, guarding, mass, organolmegaly, rebound, tenderness Rectal exam: PRESENT: deferred Extremities exam: PRESENT: other - Patient moving all extremities, no tenderness to palpation of shoulder or elbow bilaterally and no tenderness to palpation of knee bilaterally Neurological exam: PRESENT: alert, awake, oriented to person. ABSENT: motor sensory deficit Psychiatric exam: PRESENT: agitated Skin exam: PRESENT: dry, intact, warm. ABSENT: cyanosis, rash Results Laboratory Results: 12/17/16 03:56 12/17/16 03:56 Impressions: Chest X-Ray 12/16/16 12:02 IMPRESSION: MODERATE SIZE HIATAL HERNIA. NO ACUTE RADIOGRAPHIC FINDING IN THE CHEST. Head CT 12/16/16 12:02 IMPRESSION: Motion artifact. No gross acute changes. Extensive subcortical white matter low attenuation in the bifrontal and biparietal regions in a parasagittal watershed distribution from remote prior ischemic change. This is similar compared to studies dating back to 2006 EVIDENCE OF ACUTE STROKE: NO. Guidance Fluoroscopy 12/17/16 00:00 IMPRESSION: Lumbar puncture under fluoroscopy. No immediate complication. Lumbar Puncture 12/17/16 08:19 IMPRESSION: Lumbar puncture under fluoroscopy. No immediate complication. Assessment & Plan - Diagnosis (1) Status epilepticus Is this a current diagnosis for this admission?: Yes Plan: We will continue patient on phenytoin and Keppra. Patient has not had any additional seizure activities. (2) Febrile Is this a current diagnosis for this admission?: Yes Plan: Source of fever still unknown. Patient had LP and CSF fluid has been evaluated which does not appear to indicate infection. Will order MRI of brain to evaluate for possible viral etiology i.e. herpes. In the meantime will add acyclovir to meningitis treatment. Patient's viral cultures are currently pending. Called to see if herpes PCR could be added however lab states that there was not enough fluid. Patient currently being screened for flu which is currently pending. (3) Meningitis Is this a current diagnosis for this admission?: Yes Plan: Concern for meningitis: Patient had LP done this morning due to patient's persistent fevers. Patient's blood and urine cultures demonstrated no growth patient's CSF fluid has also demonstrated no growth. Patient will have MRI of brain and will be placed on acyclovir until viral studies are known. (4) Viral illness Is this a current diagnosis for this admission?: Yes Plan: Concern for possible viral syndrome: flu pending. Viral studies pending. (5) History of seizure disorder Is this a current diagnosis for this admission?: Yes Plan: We will continue phenytoin and Keppra (6) History of meningitis Is this a current diagnosis for this admission?: Yes Plan: Supportive. (7) Hyperthyroidism Is this a current diagnosis for this admission?: Yes Plan: Secondary to Medication: Will reduce dose of Synthroid. (8) Hypothyroidism Is this a current diagnosis for this admission?: Yes Plan: Will reduce dose of synthroid. (9) History of CVA (cerebrovascular accident) Is this a current diagnosis for this admission?: Yes Plan: supportive care (10) DVT prophylaxis Is this a current diagnosis for this admission?: Yes Plan: SCDS - Time Time Spent with patient: 25-34 minutes Medications reviewed and adjusted accordingly: Yes
[2016-12-18] MEDS: CEFTRIAXONE 2 GM/D5W RTU 2 GM/50 ML RTUPB IV SCH (13:04)
[2016-12-18] MEDS: ACYCLOVIR SODIUM 900 MG in NORMAL SALINE 250 ML IV SCH ×2 (14:47→21:20)
[2016-12-18] MEDS ORDERED: INFLUENZA ADLT QUAD (36MOS+) 2017-18 VAC 0.5 ML SYR IM PRN (16:06)
--- NOTE | 2016-12-18 16:16 | RADIOLOGY REPORT (SQ) ---
EXAM DESCRIPTION: MRI HEAD WITHOUT COMPLETED DATE/TIME: 12/18/2016 3:50 pm REASON FOR STUDY: Seizure Disorder COMPARISON: MRI brain 03/12/2007 CT brain 12/16/2016 TECHNIQUE: Multiplanar imaging includes non-contrasted T1, T2, FLAIR, and diffusion with ADC map seq uences. Images stored on PACS. LIMITATIONS: Motion artifact throughout the study FINDINGS: Very limited study due to patient motion artifact. Again, there is extensive encephalomalacia in the bifrontal and biparietal subcortical white matter i n a watershed type distribution, similar compared to MRI brain dating back to 2006. There is bifrontal atrophy with widening at the anterior interhemispheric fissure, unchanged. Enlarged perivascular spaces bilateral basal ganglia. No gross evidence of acute large territory ischemic change. No intracranial hemorrhage, mass effect, or midline shift. IMPRESSION: Very limited study. Chronic findings similar compared to MRI brain 03/04/2007 EVIDENCE OF ACUTE STROKE: NO. TECHNICAL DOCUMENTATION: JOB ID: [id number] [employer]- All Rights Reserved
[2016-12-18] MEDS: ACETAMINOPHEN 650 MG SUPP.RECT PR PRN (17:27)
[2016-12-18] MEDS: METOPROLOL TARTRATE 25 MG TABLET PO SCH (21:19)
[2016-12-19] MEDS: PHENYTOIN SODIUM INJ/PF 100 MG/2 ML SDV IV SCH ×2 (05:42)
[2016-12-19] MEDS: ACYCLOVIR SODIUM 900 MG in NORMAL SALINE 250 ML IV SCH ×3 (05:46→21:11)
[2016-12-19] MEDS: LEVETIRACETAM 750 MG in NORMAL SALINE 100 ML IV SCH ×2 (05:46→19:13)
[2016-12-19] MEDS: ACETAMINOPHEN 325 MG TABLET PO PRN ×3 (05:51→22:04)
[2016-12-19] MEDS: METOPROLOL TARTRATE 25 MG TABLET PO SCH ×2 (09:43→21:10)
[2016-12-19] MEDS: LORAZEPAM INJ 2 MG/1 ML VIAL IV PRN ×2 (09:43→22:05)
[2016-12-19] MEDS: LEVOTHYROXINE SODIUM 0.1 MG TABLET PO SCH (09:45)
[2016-12-19] MEDS: VANCOMYCIN HCL 1,000 MG in DEXTROSE 5%-WATER 250 ML IV SCH ×2 (11:22→22:21)
--- NOTE | 2016-12-19 14:24 | PDOC PROGRESS REPORT ---
Subjective Progress Note for:: 12/19/16 Subjective:: Spoke to patient's this morning who states that he was wondering if patient could be discharged home. Explained to patient that she has been febrile for the last several days and source of fever needs to be determined. was somewhat upset that patient is still waiting for bed at [facility]. Physical Exam Vital Signs: Temp Pulse Resp BP Pulse Ox 97.7 F 107 H 20 122/73 97 12/19/16 11:34 12/19/16 11:34 12/19/16 11:34 12/19/16 11:34 12/19/16 11:34 Intake & Output 12/18/16 12/19/16 12/20/16 06:59 06:59 06:59 Intake Total 1980 2568 Output Total 1835 1745 Balance 145 823 Weight 87.1 kg 87.1 kg General appearance: PRESENT: no acute distress, well-developed, well-nourished, other - Sleeping. Head exam: PRESENT: atraumatic, normocephalic Ear exam: PRESENT: normal external ear exam Mouth exam: PRESENT: moist, tongue midline Neck exam: ABSENT: carotid bruit, JVD, lymphadenopathy, thyromegaly Respiratory exam: PRESENT: clear to auscultation michael. ABSENT: rales, rhonchi, wheezes Cardiovascular exam: PRESENT: RRR. ABSENT: diastolic murmur, rubs, systolic murmur Pulses: PRESENT: normal dorsalis pedis pul GI/Abdominal exam: PRESENT: normal bowel sounds, soft. ABSENT: distended, guarding, mass, organolmegaly, rebound, tenderness Rectal exam: PRESENT: deferred Extremities exam: PRESENT: other - Right knee bent no warmth noted left knee with no warmth noted Neurological exam: PRESENT: other - Sleeping Skin exam: PRESENT: dry, intact, warm, other - Right knee with abrasions noted but no evidence of infection.. ABSENT: cyanosis, rash Results Laboratory Results: 12/17/16 03:56 12/17/16 03:56 Impressions: Chest X-Ray 12/16/16 12:02 IMPRESSION: MODERATE SIZE HIATAL HERNIA. NO ACUTE RADIOGRAPHIC FINDING IN THE CHEST. Head CT 12/16/16 12:02 IMPRESSION: Motion artifact. No gross acute changes. Extensive subcortical white matter low attenuation in the bifrontal and biparietal regions in a parasagittal watershed distribution from remote prior ischemic change. This is similar compared to studies dating back to 2006 EVIDENCE OF ACUTE STROKE: NO. Guidance Fluoroscopy 12/17/16 00:00 IMPRESSION: Lumbar puncture under fluoroscopy. No immediate complication. Lumbar Puncture 12/17/16 08:19 IMPRESSION: Lumbar puncture under fluoroscopy. No immediate complication. Head MRI 12/18/16 00:00 IMPRESSION: Very limited study. Chronic findings similar compared to MRI brain 03/04/2007 EVIDENCE OF ACUTE STROKE: NO. Assessment & Plan - Diagnosis (1) Status epilepticus Is this a current diagnosis for this admission?: Yes Plan: Patient has been seizure-free. Will discontinue phenytoin.. (2) Febrile Is this a current diagnosis for this admission?: Yes Plan: Source of fever still unknown. Patient had LP and CSF fluid has been evaluated which does not appear to indicate infection. Will order MRI of brain to evaluate for possible viral etiology i.e. herpes. In the meantime will add acyclovir to meningitis treatment. Patient's viral cultures are currently pending. Called to see if herpes PCR could be added however lab states that there was not enough fluid. Patient currently being screened for flu which is currently pending. CSF fluid has not demonstrated any growth of bacterial organism. Patient has been afebrile since acyclovir has been started unsure if this is indicative of possible viral etiology. Will continue IV antibiotics for 1 more day and discontinue tomorrow once CSF cultures are negative for 48 hours. (3) Meningitis Is this a current diagnosis for this admission?: Yes Plan: We will continue current antibiotic regimen with antiviral. Will discontinue antibiotics tomorrow once cultures have been negative for 48 hours. (4) Viral illness Is this a current diagnosis for this admission?: Yes Plan: Concern for possible viral syndrome: flu pending. Viral studies pending. (5) History of seizure disorder Is this a current diagnosis for this admission?: Yes Plan: We will continue Keppra (6) History of meningitis Is this a current diagnosis for this admission?: Yes Plan: Supportive. (7) Hyperthyroidism Is this a current diagnosis for this admission?: Yes Plan: Secondary to Medication: reduce dose of Synthroid. (8) Hypothyroidism Is this a current diagnosis for this admission?: Yes Plan: reduce dose of synthroid. (9) History of CVA (cerebrovascular accident) Is this a current diagnosis for this admission?: Yes Plan: supportive care (10) DVT prophylaxis Is this a current diagnosis for this admission?: Yes Plan: SCDS - Time Time Spent with patient: 15-24 minutes
[2016-12-19] MEDS: CEFTRIAXONE 2 GM/D5W RTU 2 GM/50 ML RTUPB IV SCH (15:45)
--- NOTE | 2016-12-19 15:49 | RADIOLOGY REPORT (SQ) ---
EXAM DESCRIPTION: PICC INSERTION; FLUORO/CV PLACEMENT; U/S GUIDE FOR VASCULAR ACCESS COMPLETED DATE/TIME: 12/19/2016 3:26 pm REASON FOR STUDY: NO IV ACCESS COMPARISON: AP chest 12/16/2016 FLUOROSCOPY TIME: 6 seconds 1 ultrasound and 1 fluoroscopic images saved to PACS. TECHNIQUE: Fluoroscopic and ultrasound guided PICC placement. LIMITATIONS: None. PROCEDURE: After written consent and assessment were obtained, the patient was brought into the fluo roscopy room and place supine on the table. Ultrasound was used on the patient's left arm for PICC a ccess. The left arm was prepped and draped in a sterile fashion along with the ultrasound probe. The entry site was anesthetized with 3 mL of 1% lidocaine. A 21 gauge 7 cm needle was advanced through th e skin and into the basilic vein under live ultrasound guidance. An ultrasound image was saved to [facility] confirming access site. A .018 guide wire was then inserted through the needle and into the venou s system. The needle was the removed and an 11 blade scalpel was used to make a 1cm skin incision. A 5 fr peel-away sheath was advanced over the wire and into the venous system. A measurement was then made using the existing wire and live fluoroscopic guidance. The wire was then removed and the trimme d. The PICC was advanced through the peel-away sheath and into the venous system. The peel-away sheat h was removed and the catheter was adhered to the patients arm with a stat lock. The catheter was the n aspirated and flushed and a sterile bandage was placed over the access site. A fluoroscopic spot i mage was saved to PACS confirming the catheter tip within the superior vena cava. IMPRESSION: SUCCESSFUL PLACEMENT OF A 5 FR DUAL LUMEN 41 CM PICC IN THE LEFT BASILIC VEIN. COMMENT: Patient medication list reviewed: Yes- Quality ID# 130:Eligible professional attests to doc umenting in the medical record they obtained, updated, or reviewed the patient's current medications. . Quality ID 145: Final reports for procedures using fluoroscopy that document radiation exposure marizol kelsey, or exposure time and number of fluorographic images (if radiation exposure indices are not avail able) Quality ID #76: The patient was prepped and draped using maximum sterile barrier technique including cap, mask, sterile gown, sterile gloves, a large sterile sheet, hand hygiene, and 2% Chlorhexidine fo r cutaneous antisepsis. When ultrasound is used, sterile ultrasound techniques are followed requiring sterile gel and sterile probes. TECHNICAL DOCUMENTATION: JOB ID: [id number] [employer]- All Rights Reserved
[2016-12-19] MEDS: MORPHINE SULFATE 10 MG/ML INJ IV PRN (21:17)
[2016-12-20] MEDS: CLONAZEPAM 1 MG TABLET PO PRN ×3 (01:32→22:23)
[2016-12-20] MEDS: MORPHINE SULFATE 10 MG/ML INJ IV PRN (01:33)
[2016-12-20] MEDS: LORAZEPAM INJ 2 MG/1 ML VIAL IV PRN ×2 (01:34→22:23)
[2016-12-20] MEDS: LEVETIRACETAM 750 MG in NORMAL SALINE 100 ML IV SCH (05:09)
[2016-12-20] MEDS: ACYCLOVIR SODIUM 900 MG in NORMAL SALINE 250 ML IV SCH ×3 (05:30→22:23)
[2016-12-20] MEDS: LEVOTHYROXINE SODIUM 0.1 MG TABLET PO SCH (10:09)
[2016-12-20] MEDS: METOPROLOL TARTRATE 25 MG TABLET PO SCH ×2 (10:10→22:23)
[2016-12-20] MEDS ORDERED: SUCCINYLCHOLINE CHLORIDE INJ 200 MG/10 ML VIAL ONE (11:59)
[2016-12-20] MEDS ORDERED: FLUCONAZOLE 100 MG TABLET PO ONE (12:34)
--- NOTE | 2016-12-20 13:00 | PDOC PROGRESS REPORT ---
Subjective Progress Note for:: 12/20/16 Subjective:: Pt states that he wants to go home. Nursing states that pt has erythema in breast area and genital area. Physical Exam Vital Signs: Temp Pulse Resp BP Pulse Ox 97.5 F 112 H 21 H 124/57 L 96 12/20/16 07:32 12/20/16 07:32 12/20/16 07:32 12/20/16 07:32 12/20/16 07:32 Intake & Output 12/19/16 12/20/16 12/21/16 06:59 06:59 06:59 Intake Total 2568 2416 Output Total 1745 2325 Balance 823 91 Weight 87.1 kg 87.1 kg General appearance: PRESENT: no acute distress, well-developed, well-nourished Head exam: PRESENT: atraumatic, normocephalic Eye exam: PRESENT: conjunctival injection, EOMI. ABSENT: scleral icterus Ear exam: PRESENT: normal external ear exam Mouth exam: PRESENT: moist, tongue midline Neck exam: ABSENT: carotid bruit, JVD, lymphadenopathy, thyromegaly Respiratory exam: PRESENT: clear to auscultation michael. ABSENT: rales, rhonchi, wheezes Cardiovascular exam: PRESENT: RRR. ABSENT: diastolic murmur, rubs, systolic murmur Pulses: PRESENT: normal dorsalis pedis pul Vascular exam: PRESENT: normal capillary refill GI/Abdominal exam: PRESENT: normal bowel sounds, soft. ABSENT: distended, guarding, mass, organolmegaly, rebound, tenderness Rectal exam: PRESENT: deferred Extremities exam: PRESENT: full ROM. ABSENT: calf tenderness, clubbing, pedal edema Musculoskeletal exam: PRESENT: full ROM Neurological exam: PRESENT: alert, awake, oriented to person. ABSENT: motor sensory deficit Psychiatric exam: PRESENT: agitated, other - Pt became agitated during examination Skin exam: PRESENT: dry, intact, warm. ABSENT: cyanosis, rash Results Laboratory Results: 12/17/16 03:56 12/17/16 03:56 12/17/16 10:10 Cerebral Spinal Fluid - Csf Gram Stain - Final 12/17/16 10:10 Cerebral Spinal Fluid - Csf CSF Culture - Final NO GROWTH 3 DAYS Impressions: Chest X-Ray 12/16/16 12:02 IMPRESSION: MODERATE SIZE HIATAL HERNIA. NO ACUTE RADIOGRAPHIC FINDING IN THE CHEST. Head CT 12/16/16 12:02 IMPRESSION: Motion artifact. No gross acute changes. Extensive subcortical white matter low attenuation in the bifrontal and biparietal regions in a parasagittal watershed distribution from remote prior ischemic change. This is similar compared to studies dating back to 2006 EVIDENCE OF ACUTE STROKE: NO. Lumbar Puncture 12/17/16 08:19 IMPRESSION: Lumbar puncture under fluoroscopy. No immediate complication. Head MRI 12/18/16 00:00 IMPRESSION: Very limited study. Chronic findings similar compared to MRI brain 03/04/2007 EVIDENCE OF ACUTE STROKE: NO. Guidance Fluoroscopy 12/19/16 00:00 IMPRESSION: SUCCESSFUL PLACEMENT OF A 5 FR DUAL LUMEN 41 CM PICC IN THE LEFT BASILIC VEIN. Interventional Vascular Procedure 12/19/16 00:00 IMPRESSION: SUCCESSFUL PLACEMENT OF A 5 FR DUAL LUMEN 41 CM PICC IN THE LEFT BASILIC VEIN. PICC Line Insertion 12/19/16 00:00 IMPRESSION: SUCCESSFUL PLACEMENT OF A 5 FR DUAL LUMEN 41 CM PICC IN THE LEFT BASILIC VEIN. Assessment & Plan - Diagnosis (1) Status epilepticus Is this a current diagnosis for this admission?: Yes Plan: Patient has been seizure-free. Will continue patient on higher dose of Keppra. Switch to p.o. Keppra (2) Febrile Is this a current diagnosis for this admission?: Yes Plan: Source of fever still unknown. CSF fluid demonstrates no evidence of infection culture negative for 48 hours IV antibiotics have been discontinued. Patient's viral studies are pending therefore we will continue patient on acyclovir. Patient currently afebrile. (3) Meningitis Is this a current diagnosis for this admission?: Yes Plan: Patient CSF fluid is demonstrated no growth for 48 hours and studies of CSF fluid appear to be within normal range. We will continue patient on acyclovir due to viral study pending. Patient currently afebrile. We will continue to monitor. (4) Viral illness Is this a current diagnosis for this admission?: Yes Plan: Concern for possible viral syndrome: Patient's presentation with elevated fevers is most likely viral in nature however need to rule out other serious causes for fever prior to this diagnosis. (5) Natividad albicans infection Is this a current diagnosis for this admission?: Yes Plan: Will continue Diflucan and Nystatin. (6) History of seizure disorder Is this a current diagnosis for this admission?: Yes Plan: We will continue Mckenzie (7) History of meningitis Is this a current diagnosis for this admission?: Yes Plan: Supportive. (8) Hyperthyroidism Is this a current diagnosis for this admission?: Yes Plan: Secondary to Medication: reduce dose of Synthroid. (9) Hypothyroidism Is this a current diagnosis for this admission?: Yes Plan: reduce dose of synthroid. (10) History of CVA (cerebrovascular accident) Is this a current diagnosis for this admission?: Yes Plan: supportive care (11) DVT prophylaxis Is this a current diagnosis for this admission?: Yes Plan: SCDS - Time Time Spent with patient: 15-24 minutes
[2016-12-20] MEDS ORDERED: FLUCONAZOLE 200 MG/NS RTU 100 ML IV ONE (15:15)
[2016-12-20] MEDS ORDERED: IPRATROPIUM/ALBUTEROL 0.5-2.5 MG/3 ML AMPUL NEB PRN (15:47)
--- NOTE | 2016-12-20 16:22 | RADIOLOGY REPORT (SQ) ---
EXAM DESCRIPTION: CHEST SINGLE VIEW COMPLETED DATE/TIME: 12/20/2016 4:11 pm REASON FOR STUDY: aspiration COMPARISON: 12/16/2016 EXAM PARAMETERS: NUMBER OF VIEWS: One view. TECHNIQUE: Single frontal radiographic view of the chest acquired. RADIATION DOSE: NA LIMITATIONS: None. FINDINGS: LUNGS AND PLEURA: No opacities, masses or pneumothorax. No pleural effusion. MEDIASTINUM AND HILAR STRUCTURES: No masses. Contour normal. HEART AND VASCULAR STRUCTURES: Heart normal in size. Normal vasculature. BONES: No acute findings. HARDWARE: None in the chest. OTHER: No other significant finding. IMPRESSION: NO ACUTE RADIOGRAPHIC FINDING IN THE CHEST. TECHNICAL DOCUMENTATION: JOB ID: [id number]
[2016-12-20] MEDS ORDERED: NYSTATIN CREAM 15 GM TP SCH (18:00)
--- NOTE | 2016-12-20 20:38 | RADIOLOGY REPORT (SQ) ---
EXAM DESCRIPTION: CT RT LOWER EXTREMITY WITH COMPLETED DATE/TIME: 12/20/2016 6:51 pm REASON FOR STUDY: Right knee pain COMPARISON: None. TECHNIQUE: CT scan of the right knee performed without intravenous or oral contrast. Images reviewe d with soft tissue and bone windows. Reconstructed coronal and sagittal MPR images reviewed. All im ages stored on PACS. All CT scanners at this facility use dose modulation, iterative reconstruction, and/or weight based d osing when appropriate to reduce radiation dose to as low as reasonably achievable (ALARA). [facility]: Dose Right [facility]: CareDose [facility]: Dose Right [facility]: Teradose 4D [facility]: Smart [employer] RADIATION DOSE: Up-to-date CT equipment and radiation dose reduction techniques were employed. CTDIv ol: 4.1 mGy. DLP: 104 mGy-cm. mGy. LIMITATIONS: None. FINDINGS: Mineralization is osteopenic. Tricompartmental degenerative changes are present noting lo ss of joint space and marginal osteophytes. Cortical irregularity involving the anterior cortex of t he tibial plateau is of uncertain chronicity, but appears to represent osseous injury on the basis of diminished mineralization. No joint effusion is present. Some chondrocalcinosis is demonstrated. The patellar and quadriceps tendons appear to be intact. Note is made of diffuse muscle atrophy. Th e vasculature appears grossly normal. IMPRESSION: Apparent buckle fracture of the anterior cortex of the proximal tibial metaphysis, likel y on the basis of decreased mineralization. Given the degree of osteopenia, the chronicity of this f inding is uncertain. Recommend correlation with timing and mechanism of injury. TECHNICAL DOCUMENTATION: JOB ID: [id number] Quality ID # [id number]: Final reports with documentation of one or more dose reduction techniques (e.g., Au tomated exposure control, adjustment of the mA and/or kV according to patient size, use of iterative reconstruction technique) 2010 [employer]- All Rights Reserved
[2016-12-20] MEDS ORDERED: LEVETIRACETAM XR 500 MG TAB.SR.24H PO SCH (22:00)
[2016-12-20] MEDS ORDERED: DEXTROSE 40% GEL 15 GM TUBE PO PRN ×2 (22:36)
[2016-12-20] MEDS ORDERED: DEXTROSE 50%-WATER 25 GM/50 ML DISP.SYRIN IV PRN ×2 (22:36)
[2016-12-20] MEDS ORDERED: GLUCAGON,HUMAN RECOMB 1 MG INJ SUBCUT PRN (22:36)
[2016-12-20 23:33] LABS: HEMATOCRIT 37.4 % (36.0-47.0); HEMOGLOBIN 12.6 g/dL (12.0-15.5); HGB HCT DIFFERENCE 0.4; MEAN CORPUSCULAR HEMOGLOBIN 27.4 pg (27.0-33.4); MEAN CORPUSCULAR HGB CONC 33.6 g/dL (32.0-36.0); MEAN CORPUSCULAR VOLUME 82 fl (80-97); RED BLOOD COUNT 4.59 10^6/uL (3.72-5.28); RED CELL DISTRIBUTION WIDTH 16.8 % (11.5-14.0); WHITE BLOOD COUNT 14.8 10^3/uL (4.0-10.5)
--- NOTE | 2016-12-20 23:42 | RADIOLOGY REPORT (SQ) ---
EXAM DESCRIPTION: CHEST SINGLE VIEW COMPLETED DATE/TIME: 12/20/2016 11:16 pm REASON FOR STUDY: tachypnea COMPARISON: 12/20/2016 EXAM PARAMETERS: NUMBER OF VIEWS: One view. TECHNIQUE: Single frontal radiographic view of the chest acquired. RADIATION DOSE: NA LIMITATIONS: None. FINDINGS: LUNGS AND PLEURA: No opacities, masses or pneumothorax. No pleural effusion. MEDIASTINUM AND HILAR STRUCTURES: No masses. Contour normal. HEART AND VASCULAR STRUCTURES: Heart normal in size. Normal vasculature. BONES: No acute findings. HARDWARE: Left upper extremity PICC terminates in the region of the superior vena cava. OTHER: No other significant finding. IMPRESSION: NO ACUTE RADIOGRAPHIC FINDING IN THE CHEST. TECHNICAL DOCUMENTATION: JOB ID: [id number]
[2016-12-20 23:49] LABS: ANION GAP 10 (5-19); BLOOD UREA NITROGEN 12 mg/dL (7-20); CALCIUM 8.1 mg/dL (8.4-10.2); CARBON DIOXIDE 19 mmol/L (22-30); CHLORIDE 103 mmol/L (98-107); CREATININE RESULT 2.22 mg/dL (0.52-1.25); GLUCOSE 289 mg/dL (75-110); SODIUM 132.2 mmol/L (137-145)
[2016-12-20 23:52] LABS: BAND NEUTROPHILS % (MANUAL) 2 % (3-5); BASOPHILS % (MANUAL) 0 % (0-2); EOSINOPHILS % (MANUAL) 0 % (0-6); LYMPHOCYTES % (MANUAL) 8 % (13-45); TOTAL CELLS COUNTED 100
[2016-12-20 23:53] LABS: TOXIC GRANULATION 1+; TOXIC VACUOLATION PRESENT
[2016-12-20 23:54] LABS: ANISOCYTOSIS 1+; OVALOCYTES 1+; POIKILOCYTOSIS 1+; TEAR DROP CELLS SLIGHT
[2016-12-20 23:58] LABS: MAGNESIUM 1.2 mg/dL (1.6-2.3); POTASSIUM 2.3 mmol/L (3.6-5.0)
[2016-12-21 00:06] LABS: ARTERIAL BLOOD BASE EXCESS -3.1 mmol/L; ARTERIAL BLOOD O2 SATURATION 96.6 % (94-98)
[2016-12-21] MEDS ORDERED: NORMAL SALINE 1000 ML 1,000 ML IV PRN (00:12)
[2016-12-21] MEDS: POTASSI CL 20 MEQ/50 ML RIDER 20 MEQ/50 ML RTUPB IV SCH ×3 (01:07→05:07)
[2016-12-21] MEDS: MAGNESIUM SULFATE/D5W 1 GM/100 ML RTUPB IV SCH ×3 (01:07→02:56)
[2016-12-21] MEDS ORDERED: ALBUTEROL SULFATE 0.083% NEB 2.5 MG/3 ML AMPUL NEB PRN (02:07)
[2016-12-21] MEDS ORDERED: PHARMACY COMMUNICATION ORDER MC NR (02:15)
[2016-12-21] MEDS ORDERED: LEVOTHYROXINE SODIUM 0.1 MG TABLET NG SCH (02:18)
[2016-12-21] MEDS ORDERED: ACETAMINOPHEN 325 MG TABLET NG PRN (02:19)
[2016-12-21] MEDS ORDERED: PROPOFOL INJ 200 MG/20 ML VIAL IV ONE (02:25)
[2016-12-21] MEDS ORDERED: PHARMACY COMMUNICATION ORDER MC SCH (02:30)
[2016-12-21] MEDS ORDERED: VANCOMYCIN HCL 0 MG in DEXTROSE 5%-WATER 250 ML IV NR (02:30)
[2016-12-21] MEDS: PROPOFOL 100 ML IV PRN ×2 (03:37→05:05)
[2016-12-21] MEDS ORDERED: PIPERACILLIN SODIUM/TAZOBACTAM 4.5 GM in NORMAL SALINE 100 ML IV ONE (04:00)
[2016-12-21] MEDS ORDERED: PIPERACILLIN/TAZOBACTAM 4.5 GM VIAL IV ONE (04:06)
--- NOTE | 2016-12-21 04:08 | RADIOLOGY REPORT (SQ) ---
EXAM DESCRIPTION: CHEST SINGLE VIEW CLINICAL HISTORY: 61 years, Female, intubation COMPARISON: Yesterday's chest radiograph at 1108 hours. NUMBER OF VIEWS: 1 TECHNIQUE: Routine radiographic technique. LIMITATIONS: None. FINDINGS: The Endotracheal tube tip is 3.6 cm above the usama. Nasogastric tube tip and distal port are in the stomach. Left PICC central line tip is in the superior vena cava. Probable left basilar atelectasis. The lungs are otherwise clear. No pneumothorax. IMPRESSION: 1. Lines and tubes are in appropriate position. 2. Probable left basilar atelectasis. 3. No pneumothorax or pneumomediastinum. 2011 [employer]- All Rights Reserved
[2016-12-21 04:25] LABS: VENOUS BLOOD BASE EXCESS -3.1 mmol/L; VENOUS BLOOD HCO3 21.1 mmol/L (20-32); VENOUS BLOOD PCO2 34.8 mmHg (35-63); VENOUS BLOOD PH 7.4 (7.30-7.42)
--- NOTE | 2016-12-21 04:26 | Progress Note ---
Provider Note Provider Note: December 21, 2016: Late evening of the , I was notified by patient's floor nurse of respiratory rate was in the low 50s. I went to the patient's bedside. She remained quite confused, occasionally calling out. Floor nurse and respiratory therapist were present. Vital signs acceptable other than again her rapid respiratory rate in the low 50s. Lungs were clear to auscultation. Quite acceptable O2 saturation. Chart reviewed. Patient placed on BiPAP. Blood gas obtained with respiratory support change to CPAP. Approximately 1:30 AM this morning, patient remained quite tachypneic. When agitated, which is intermittent problem for her respiratory rate were in the 50s. Otherwise, respiratory rate in the low to mid 30s. Previous labs chest x-ray reviewed. History per day hospitalist during checkout rounds the evening of the revealed an episode of aspiration earlier on the . With patient remaining quite tachypnea, concern was for impending respiratory failure. Chart again reviewed. At 1:40 AM, I attempted to contact through the only phone number in her record, including checking with floor nursing staff. Generic voicemail left for him to call me as soon as possible at the hospital. Decision was then made to transfer the patient to the intensive care unit, where she underwent successful intubation by EXTRACTOR TENDER RAW STOCK. Tolerated procedure well. With worsening respiratory status, combined with her low-grade temp, antibiotics consisting of Zosyn and intravenous vancomycin were started for her episode of aspiration. Pharmacy to assist with dosing. 45 minutes critical care time spent in evaluation management of patient, including direct bedside evaluation on more than one occasion, chart review, multiple discussions with nursing and respiratory staff, and entering of multiple orders into the electronic health record, including supplements for correction of her hypokalemia and hypomagnesemia. Postintubation chest x-ray reviewed, with subsequent review of radiology report.
[2016-12-21] MEDS: ACYCLOVIR SODIUM 900 MG in NORMAL SALINE 250 ML IV SCH (05:05)
[2016-12-21] MEDS ORDERED: NORMAL SALINE 1000 ML 500 ML IV ONE (05:08)
[2016-12-21] MEDS ORDERED: HEPARIN SOD (PORCINE) 5,000 UNIT/ML 1 ML SYRINGE SUBCUT SCH (06:00)
[2016-12-21] MEDS ORDERED: POTASSI CL 20 MEQ/50 ML RIDER 20 MEQ/50 ML RTUPB IV SCH (06:15)
[2016-12-21 06:42] VITALS: BP 94/77
[2016-12-21 07:06] LABS: ABSOLUTE BASOPHILS # (AUTO) 0.1 10^3/uL (0.0-0.2); ABSOLUTE EOSINOPHILS # (AUTO) 0.6 10^3/uL (0.0-0.6); ABSOLUTE LYMPHOCYTES (AUTO) 0.9 10^3/uL (0.5-4.7); ABSOLUTE MONOCYTES (AUTO) 0.8 10^3/uL (0.1-1.4); ABSOLUTE NEUT (AUTO) 10.3 10^3/uL (1.7-8.2); BASOPHILS % (AUTO) 0.4 % (0-2); EOSINOPHILS % (AUTO) 4.8 % (0-6); HEMATOCRIT 31.9 % (36.0-47.0); HEMOGLOBIN 10.8 g/dL (12.0-15.5); HGB HCT DIFFERENCE 0.5; LYMPHOCYTES % (AUTO) 7.4 % (13-45); MEAN CORPUSCULAR HEMOGLOBIN 27.4 pg (27.0-33.4); MEAN CORPUSCULAR HGB CONC 33.8 g/dL (32.0-36.0); MEAN CORPUSCULAR VOLUME 81 fl (80-97); MONOCYTES % (AUTO) 6.5 % (3-13); RED BLOOD COUNT 3.93 10^6/uL (3.72-5.28); RED CELL DISTRIBUTION WIDTH 16.8 % (11.5-14.0); SEGMENTED NEUTROPHILS % (AUTO) 80.9 % (42-78); WHITE BLOOD COUNT 12.8 10^3/uL (4.0-10.5)
[2016-12-21 07:25] LABS: ANION GAP 9 (5-19); BLOOD UREA NITROGEN 14 mg/dL (7-20); CALCIUM 7.6 mg/dL (8.4-10.2); CARBON DIOXIDE 22 mmol/L (22-30); CHLORIDE 106 mmol/L (98-107); GLUCOSE 125 mg/dL (75-110); MAGNESIUM 1.9 mg/dL (1.6-2.3); SODIUM 137.4 mmol/L (137-145)
[2016-12-21 07:28] LABS: POTASSIUM 2.5 mmol/L (3.6-5.0)
[2016-12-21] MEDS ORDERED: IPRATROPIUM/ALBUTEROL 0.5-2.5 MG/3 ML AMPUL NEB SCH (08:00)
[2016-12-21] MEDS ORDERED: NORMAL SALINE 1000 ML 1,000 ML IV ONE (08:16)
[2016-12-21] MEDS ORDERED: MIDAZOLAM HCL 100 ML IV PRN (08:16)
[2016-12-21] MEDS ORDERED: MIDAZOLAM HCL 100 ML IV ONE (08:51)
[2016-12-21] MEDS ORDERED: PIPERACILLIN SODIUM/TAZOBACTAM 4.5 GM in NORMAL SALINE 100 ML IV SCH (09:00)
[2016-12-21] MEDS ORDERED: LEVETIRACETAM 500 MG/NACL-ISO 500 MG/100 ML RTUPB IV SCH (10:00)
[2016-12-21] MEDS ORDERED: LEVETIRACETAM 1500 MG/NACL-ISO 1,500 MG/100 ML RTUPB IV SCH ×2 (10:00)
[2016-12-21] MEDS ORDERED: POTASSI CL 20 MEQ/50 ML RIDER 20 MEQ/50 ML RTUPB IV ONE (10:00)
[2016-12-21] MEDS ORDERED: LEVETIRACETAM INJ/PF 500 MG/5 ML SDV IV SCH (10:00)
[2016-12-21] MEDS ORDERED: METOPROLOL TARTRATE PF/INJ 5 MG/5 ML SDV IV SCH (10:00)
[2016-12-21] MEDS ORDERED: FLUCONAZOLE 100 MG TABLET PO SCH (10:00)
--- NOTE | 2016-12-21 10:00 | PDOC TRANSFER SUMMARY ---
General Admission Date/PCP: 12/16/16 18:29 IRIS PAUL MD Admission Date: 12/16/16 Transfer Date: 12/21/16 Accepting Facility: [facility] Accepting Physician: Dr. Urbina Resuscitation Status: Full Code - Transfer Diagnosis (1) Status epilepticus Is this a current diagnosis for this admission?: Yes Diagnosis Summary: Patient was admitted to our hospital on on 12/16/2016 for status at the left against due to ER not been able to obtain a bed at [facility]. Patient was given bolus dose of phenytoin and continued on maintenance dose of phenytoin and placed on IV Keppra. Patient appeared to be seizure-free from to 12/20. Patient's home dose of Keppra was 750 twice a day and patient currently has been maintained on Keppra 1500 mg IV twice daily. (2) Febrile Is this a current diagnosis for this admission?: Yes Diagnosis Summary: Patient was noted to be febrile at time of admission. Patient had LP performed CSF did not demonstrate findings consistent with bacterial meningitis. Patient' s cultures have been negative for more 48 hours. Patient had been placed on vancomycin and Rocephin at time of admission. Patient CSF fluid was sent for bacterial cultures and viral cultures. Requested been made for HSV PCR however lab had already sent CSF fluid for viral studies. Patient was placed on acyclovir and patient's fever trend resolved. Currently unsure if fever trend is related to HSV meningitis versus viral syndrome. Patient had MRI and CT of the brain that did not demonstrate evidence consistent with HSV meningitis. This has been discussed with Dr. Nolan who has discussed case with Dr. Urbina. (3) Meningitis Is this a current diagnosis for this admission?: Yes Diagnosis Summary: Patient CSF fluid did not demonstrate evidence consistent with bacterial meningitis. Patient CSF cultures have demonstrated no growth. Patient was initially placed on vancomycin and Rocephin at time of admission due to persistent fevers and concern for meningitis. Patient did have viral cultures sent however HSV PCR was not able to be obtained due to CSF fluid sent for viral cultures. Patient is currently on acyclovir for concern for possible HSV meningitis. Patient's fever trend seemed to improve once patient was started on acyclovir unsure if this is related to patient's clinical presentation. Viral culture is pending currently. (4) Viral illness Is this a current diagnosis for this admission?: Yes Diagnosis Summary: Concern for possible viral syndrome. (5) Natividad albicans infection Is this a current diagnosis for this admission?: Yes Diagnosis Summary: Patient placed on Diflucan. (6) History of seizure disorder Is this a current diagnosis for this admission?: Yes Diagnosis Summary: Continue current treatment. (7) History of meningitis Is this a current diagnosis for this admission?: Yes Diagnosis Summary: Supportive (8) Hyperthyroidism Is this a current diagnosis for this admission?: Yes Diagnosis Summary: She was on Synthroid however dose was too high. Patient's dose of Synthroid has been adjusted. Patient will need to have free T4 checked in 4-6 weeks. (9) Hypothyroidism Is this a current diagnosis for this admission?: Yes Diagnosis Summary: She was on Synthroid but dose was too high. Dose has been decreased and therefore patient will need to have free T4 checked in 4-6 weeks. (10) History of CVA (cerebrovascular accident) Is this a current diagnosis for this admission?: Yes Diagnosis Summary: Supportive (11) Hypotension Is this a current diagnosis for this admission?: Yes Diagnosis Summary: Most likely secondary to propofol: Patient has been given normal saline boluses. Patient's propofol has been discontinued and placed on Versed. (12) Acute renal injury Is this a current diagnosis for this admission?: Yes Diagnosis Summary: Most likely secondary to hypotension caused by propofol: Propofol has been discontinued and patient's been placed on Versed. Patient has excellent urine output. Patient receiving saline boluses. (13) Aspiration into airway Is this a current diagnosis for this admission?: Yes Diagnosis Summary: Recent aspirated yesterday accompanied by altered mental status per nursing staff. Nursing staff does not report any seizure activity. Patient currently on Zosyn. Patient also intubated due to respiratory failure. Chest x-ray demonstrates no infiltrate currently. (14) Hypokalemia Is this a current diagnosis for this admission?: Yes Diagnosis Summary: She has received potassium replacement. Patient will need potassium recheck. (15) Hypomagnesemia Is this a current diagnosis for this admission?: Yes Diagnosis Summary: She has received magnesium replacement. Magnesium level will need to be checked. (16) Acute respiratory failure with hypoxia Is this a current diagnosis for this admission?: Yes Diagnosis Summary: Acute hypoxic respiratory failure secondary to aspiration pneumonia: Patient currently intubated. - Transfer Medications Home Medications: Atorvastatin Calcium [Lipitor 10 mg Tablet] 10 mg PO QHS 12/16/16 Dextromethorphan HBr/Quinidine [Nuedexta 20-10 mg Capsule] 1 cap PO Q12 Fentanyl [Duragesic 50 Mcg/Hr Transdermal Patch] 1 each TD Q3D 12/16/16 Hydroxyzine HCl [Atarax 25 mg Tablet] 25 mg PO Q8 12/16/16 Letrozole [Femara 2.5 Mg Tablet] 2.5 mg PO DAILY 12/16/16 Levetiracetam [Keppra] 750 mg PO Q12 12/16/16 Levothyroxine Sodium [Synthroid] 175 mcg PO QAM 12/16/16 Losartan Potassium [Cozaar 25 mg Tablet] 25 mg PO DAILY 12/16/16 Morphine Sulfate [Morphine Ir 30 mg Tablet] 60 mg PO Q6HP PRN 12/16/16 Zolpidem Tartrate [Zolpidem Tartrate ER] 12.5 mg PO QHS 12/16/16 Transfer Medications: Current Medications Acetaminophen (Tylenol 325 Mg Tablet) 650 mg NG Q8HP PRN Stop: 01/20/17 02:18 Albuterol (Ventolin 0.083% Neb 2.5 Mg/3 Ml Ampul) 2.5 mg NEB RTQ4HP PRN Stop: 01/20/17 02:06 Albuterol/Ipratropium (Duoneb 3 Ml Ampul) 3 ml NEB RTQ6 PATRICK Stop: 01/20/17 07:59 Last Admin: 12/21/16 08:25 Dose: 3 ml Clonazepam (Klonopin 1 Mg Tablet) 2 mg PO Q8HP PRN Stop: 12/25/16 11:23 Last Admin: 12/20/16 22:23 Dose: 2 mg Dextrose (Dextrose Inj 50% Syringe (25 Gm/50 Ml)) 12.5 gm IV PRN PRN; Protocol PRN Reason: FOR BG 50-69 IN ALERT PATIENT Stop: 01/19/17 22:35 Dextrose (Dextrose Inj 50% Syringe (25 Gm/50 Ml)) 25 gm IV PRN PRN; Protocol PRN Reason: See Label Comments Stop: 01/19/17 22:35 Glucagon (Glucagen Inj 1 Mg Vial) 1 mg SUBCUT PRN PRN; Protocol PRN Reason: Evaluate for BG < 70 Stop: 01/19/17 22:35 Glucose (Glutose 40% Gel 15 Gm Tube) 15 gm PO PRN PRN; Protocol PRN Reason: For BG 50-69 in Alert Patient Stop: 01/19/17 22:35 Glucose (Glutose 40% Gel 15 Gm Tube) 30 gm PO PRN PRN; Protocol PRN Reason: FOR BG < 50 IN ALERT PATIENT Stop: 01/19/17 22:35 Heparin Sodium (Porcine) (Heparin Inj 5,000 Units/Ml 1 Ml Syringe) 5,000 unit SUBCUT Q12A [facility] Stop: 01/20/17 05:59 Last Admin: 12/21/16 05:06 Dose: 5,000 unit Acyclovir Sodium 900 mg/ (Sodium Chloride) 268 mls @ 268 mls/hr IV Q8 [facility] Stop: 12/25/16 13:59 Last Admin: 12/21/16 05:05 Dose: 900 mg Sodium Chloride (Nacl 0.9% 1000 Ml Iv Soln) 1,000 mls @ 125 mls/hr IV CONTINUOUS PRN PRN Reason: THIS MED IS NOT "PRN" Stop: 01/20/17 00:11 Last Admin: 12/21/16 02:49 Dose: 1,000 ml Potassium Chloride/Water (Potassium Chloride Roberto Carlos 20 Meq/50 Ml) 20 meq in 50 mls @ 25 mls/hr IV Q2H [facility] Stop: 12/21/16 10:14 Last Admin: 12/21/16 06:51 Dose: 50 ml Piperacillin Sod/Tazobactam (Sod 4.5 gm/ Sodium Chloride) 100 mls @ 200 mls/hr IV Q6A [facility] Stop: 12/28/16 08:59 Vancomycin HCl / Dextrose 250 mls @ 0 mls/hr IV .PHARMACY TO DOSE NR PRN Reason: As Directed Stop: 12/28/16 02:29 Potassium Chloride/Water (Potassium Chloride Roberto Carlos 20 Meq/50 Ml) 20 meq in 50 mls @ 25 mls/hr IV NOW ONE Stop: 12/21/16 11:59 Midazolam HCl (Versed Rtu 50 Mg/100 Ml Premix Bag) 100 mls @ 0 mls/hr IV CONTINUOUS PRN; Protocol; Titrate PRN Reason: THIS MED IS NOT "PRN" Stop: 12/28/16 08:15 Influenza Virus Vaccine Quadrival (Fluzone Adlt Quad [id number] Vac 0.5 Ml Syr) 0.5 ml IM .DISCHARGE PRN PRN Reason: THIS MED IS NOT "PRN" Stop: 01/17/17 16:05 Levothyroxine Sodium (Synthroid 0.1 Mg Tablet) 0.1 mg NG DAILY PATRICK Stop: 01/20/17 02:14 Lorazepam (Ativan Inj 2 Mg/1 Ml Vial) 2 mg IV Q2HP PRN Stop: 12/23/16 18:31 Last Admin: 12/20/16 22:23 Dose: 2 mg Metoprolol Tartrate (Lopressor Inj/Pf 5 Mg/5 Ml Sdv) 5 mg IV Q12 PATRICK Stop: 01/20/17 09:59 Morphine Sulfate (Morphine 10 Mg/Ml Inj) 2 mg IV Q4HP PRN Stop: 12/23/16 22:04 Last Admin: 12/20/16 01:33 Dose: 2 mg Nystatin (Mycostatin Cream 15 Gm) 1 applic TP BID PATRICK Stop: 12/27/16 17:59 Last Admin: 12/20/16 18:47 Dose: 1 applic Pharmacy Profile Note (Medication Communication Order) 1 each MC .NOTICE NR Stop: 01/20/17 02:14 Pharmacy Profile Note (Medication Communication Order) 1 each MC .DOSE ADJUST PATRICK Stop: 01/20/17 02:29 Sodium Chloride (Saline Flush 2.5 Ml Monoject Prefil Syrin) 2.5 ml IV Q8 PATRICK Stop: 01/15/17 21:59 Last Admin: 12/21/16 05:05 Dose: 2.5 ml - Allergies Allergies/Adverse Reactions: No Known Allergies Allergy (Verified 01/27/12 19:02) - Diet/Activity Discharge Diet: Other (Comments) - N.p.o. Hospital Course Hospital Course: Patient 61year-old female that was admitted to our facility due to status epilepticus. ER had tried to attempt transfer to a tertiary center however no beds were available. Patient was then admitted to our facility for continuation of care. Patient was loaded with fosphenytoin and Keppra and patient has been seizure-free from December 16 - December 20. On December 20 patient was noted to have aspirated and experienced altered mental status. Patient's respiratory function declined and therefore was intubated. At time of admission patient was noted to have fever therefore LP was performed however CSF fluid did not indicate any bacterial infection. CSF cultures have demonstrated no growth. Patient was placed on vancomycin and Rocephin however those antibiotics were discontinued. Viral cultures are pending currently. Patient was placed on acyclovir due to persistent fever. CSF did not seem to be consistent with a viral etiology however due to no other source for infection felt that it was pertinent to treat. Patient's fever trend was noted to improve once started on acyclovir. Patient did have CT of right knee to evaluate for possible infection however it demonstrated a buckle fracture of unknown age. Patient subsequently has become hypotensive due to propofol and has developed acute renal injury. Patient has received IV fluid boluses and and output has been good. Will follow was discontinued and patient was placed on Versed drip. Patient is being transferred to [facility] (formerly [facility] for higher level of care and accepting physician is Dr. Urbina. Appreciate Dr. Nolan and Dr. Urbina assistance with patient's care. Physical Exam Vital Signs: Temp Pulse Resp BP Pulse Ox 97.2 F 89 14 94/77 L 100 12/21/16 06:36 12/21/16 08:25 12/21/16 08:25 12/21/16 06:36 12/21/16 08:25 Intake & Output 12/20/16 12/21/16 12/22/16 06:59 06:59 06:59 Intake Total 2416 2973 Output Total 2325 1975 175 Balance 91 998 -175 Weight 87.1 kg 89.5 kg General appearance: PRESENT: other - Intubated Head exam: PRESENT: atraumatic, normocephalic Eye exam: PRESENT: conjunctival injection Ear exam: PRESENT: normal external ear exam Mouth exam: PRESENT: moist, tongue midline Neck exam: ABSENT: carotid bruit, JVD, lymphadenopathy, thyromegaly Respiratory exam: PRESENT: other - Diminished breath sounds at [place] air movement heard in upper lobes Cardiovascular exam: PRESENT: RRR, tachycardia. ABSENT: diastolic murmur, rubs , systolic murmur Pulses: PRESENT: normal dorsalis pedis pul Vascular exam: PRESENT: normal capillary refill GI/Abdominal exam: PRESENT: normal bowel sounds, soft. ABSENT: distended, guarding, mass, organolmegaly, rebound, tenderness Rectal exam: PRESENT: deferred Neurological exam: PRESENT: other - Sedated Results Laboratory Results: 12/21/16 06:55 12/21/16 06:55 12/20/16 12/20/16 12/20/16 23:19 23:19 23:25 WBC 14.8 H RBC 4.59 Hgb 12.6 Hct 37.4 MCV 82 MCH 27.4 MCHC 33.6 RDW 16.8 H Plt Count 182 Seg Neutrophils % Not Reportable Lymphocytes % Not Reportable Monocytes % Not Reportable Eosinophils % Not Reportable Basophils % Not Reportable Absolute Neutrophils Not Reportable Absolute Lymphocytes Not Reportable Absolute Monocytes Not Reportable Absolute Eosinophils Not Reportable Absolute Basophils Not Reportable Carbonic Acid 0.88 L HCO3/H2CO3 Ratio 22:1 ABG pH 7.45 ABG pCO2 29.2 L ABG pO2 81.8 ABG HCO3 19.7 L ABG O2 Saturation 96.6 ABG Base Excess -3.1 VBG pH VBG pCO2 VBG HCO3 VBG Base Excess FiO2 30% Sodium 132.2 L Potassium 2.3 L* Chloride 103 Carbon Dioxide 19 L Anion Gap 10 BUN 12 Creatinine 2.22 H Est GFR ( Amer) 27 L Est GFR (Non-Af Amer) 22 L Glucose 289 H Calcium 8.1 L Magnesium 1.2 L* 12/21/16 12/21/16 12/21/16 04:13 06:55 06:55 WBC 12.8 H RBC 3.93 Hgb 10.8 L Hct 31.9 L MCV 81 MCH 27.4 MCHC 33.8 RDW 16.8 H Plt Count 169 Seg Neutrophils % 80.9 H Lymphocytes % 7.4 L Monocytes % 6.5 Eosinophils % 4.8 Basophils % 0.4 Absolute Neutrophils 10.3 H Absolute Lymphocytes 0.9 Absolute Monocytes 0.8 Absolute Eosinophils 0.6 Absolute Basophils 0.1 Carbonic Acid HCO3/H2CO3 Ratio ABG pH ABG pCO2 ABG pO2 ABG HCO3 ABG O2 Saturation ABG Base Excess VBG pH 7.40 VBG pCO2 34.8 L VBG HCO3 21.1 VBG Base Excess -3.1 FiO2 Sodium 137.4 Potassium 2.5 L* Chloride 106 Carbon Dioxide 22 Anion Gap 9 BUN 14 Creatinine 2.20 H Est GFR ( Amer) 27 L Est GFR (Non-Af Amer) 23 L Glucose 125 H Calcium 7.6 L Magnesium 1.9 12/17/16 10:10 Cerebral Spinal Fluid - Csf Gram Stain - Final 12/17/16 10:10 Cerebral Spinal Fluid - Csf CSF Culture - Final NO GROWTH 3 DAYS 12/20/16 12/21/16 23:19 04:13 Troponin I 0.203 0.169 Impressions: Head CT 12/16/16 12:02 IMPRESSION: Motion artifact. No gross acute changes. Extensive subcortical white matter low attenuation in the bifrontal and biparietal regions in a parasagittal watershed distribution from remote prior ischemic change. This is similar compared to studies dating back to 2006 EVIDENCE OF ACUTE STROKE: NO. Lumbar Puncture 12/17/16 08:19 IMPRESSION: Lumbar puncture under fluoroscopy. No immediate complication. Head MRI 12/18/16 00:00 IMPRESSION: Very limited study. Chronic findings similar compared to MRI brain 03/04/2007 EVIDENCE OF ACUTE STROKE: NO. Guidance Fluoroscopy 12/19/16 00:00 IMPRESSION: SUCCESSFUL PLACEMENT OF A 5 FR DUAL LUMEN 41 CM PICC IN THE LEFT BASILIC VEIN. Interventional Vascular Procedure 12/19/16 00:00 IMPRESSION: SUCCESSFUL PLACEMENT OF A 5 FR DUAL LUMEN 41 CM PICC IN THE LEFT BASILIC VEIN. PICC Line Insertion 12/19/16 00:00 IMPRESSION: SUCCESSFUL PLACEMENT OF A 5 FR DUAL LUMEN 41 CM PICC IN THE LEFT BASILIC VEIN. Lower Extremity CT 12/20/16 00:00 IMPRESSION: Apparent buckle fracture of the anterior cortex of the proximal tibial metaphysis, likely on the basis of decreased mineralization. Given the degree of osteopenia, the chronicity of this finding is uncertain. Recommend correlation with timing and mechanism of injury. Chest X-Ray 12/21/16 00:00 IMPRESSION: 1. Lines and tubes are in appropriate position. 2. Probable left basilar atelectasis. 3. No pneumothorax or pneumomediastinum. 2010 [employer]- All Rights Reserved
--- NOTE | 2016-12-21 11:09 | PDOC CONSULTATION ---
Consultation Consult Date: 12/21/16 Attending physician:: NATALI CASILLAS Consult reason:: Positive troponin I History of Present Illness Admission Date/PCP: 12/16/16 18:29 IRIS PAUL MD Patient complains of: Positive troponin I. Patient is intubated and sedated History of Present Illness: MARIE SEGURA is a 61 year old female into the emergency room due to change in mental status. Per ER when patient was seen in the emergency department patient was in status. Pt was loaded with Phenytoin and Keppra. Pt was accepted to outside but no bed available. Outside facility states that they would be able to take patient in 24-48 hours. I was consulted to see the patient because of positive troponin I. There is no other history available at this point. [facility] record reviewed. Nurses interviewed. Discussed with hospitalist. Inpatient course reviewed. It seems patient went into respiratory distress due to possible aspiration. Patient needed to be moved to the unit. She was intubated and placed on ventilator. EKG obtained at that time shows tachycardia , without any acute ST-T wave changes. Past Medical History Cardiac Medical History: Reports: Hypertension Denies: Coronary Artery Disease, Myocardial Infarction Pulmonary Medical History: Denies: Asthma, Bronchitis, Chronic Obstructive Pulmonary Disease (COPD), Pneumonia, Tuberculosis Neurological Medical History: Reports: Seizures - LAST IN 2008 Musculoskeltal Medical History: Denies: Arthritis Psychiatric Medical History: Reports: Dementia, Depression Hematology: Reports: Anemia Past Surgical History Past Surgical History: Reports: Hysterectomy, Orthopedic Surgery - bilateral hip replacement, R rotator cuff repair, R ankle fx and reapir Social History Information Source: [facility] Records Smoking Status: Never Smoker Frequency of Alcohol Use: None Hx Recreational Drug Use: No Hx Prescription Drug Abuse: No - Advance Directive Resuscitation Status: Full Code Surrogate healthcare decision maker:: Patient's Family History Family History: Reviewed & Not Pertinent Parental Family History Reviewed: No Children Family History Reviewed: No Sibling(s) Family History Reviewed.: No - Family history could not be obtained. Medication/Allergy Home Medications: Atorvastatin Calcium [Lipitor 10 mg Tablet] 10 mg PO QHS 12/16/16 Dextromethorphan HBr/Quinidine [Nuedexta 20-10 mg Capsule] 1 cap PO Q12 Fentanyl [Duragesic 50 Mcg/Hr Transdermal Patch] 1 each TD Q3D 12/16/16 Hydroxyzine HCl [Atarax 25 mg Tablet] 25 mg PO Q8 12/16/16 Letrozole [Femara 2.5 Mg Tablet] 2.5 mg PO DAILY 12/16/16 Levetiracetam [Keppra] 750 mg PO Q12 12/16/16 Levothyroxine Sodium [Synthroid] 175 mcg PO QAM 12/16/16 Losartan Potassium [Cozaar 25 mg Tablet] 25 mg PO DAILY 12/16/16 Morphine Sulfate [Morphine Ir 30 mg Tablet] 60 mg PO Q6HP PRN 12/16/16 Zolpidem Tartrate [Zolpidem Tartrate ER] 12.5 mg PO QHS 12/16/16 Allergies/Adverse Reactions: No Known Allergies Allergy (Verified 01/27/12 19:02) Review of Systems ROS unobtainable: Due to endotracheal tube Physical Exam Vital Signs: Temp Pulse Resp BP Pulse Ox 97.2 F 89 14 94/77 L 100 12/21/16 06:36 12/21/16 08:25 12/21/16 08:25 12/21/16 06:36 12/21/16 08:25 Intake & Output 12/20/16 12/21/16 12/22/16 06:59 06:59 06:59 Intake Total 2416 2973 Output Total 2325 1975 175 Balance 91 998 -175 Weight 87.1 kg 89.5 kg Exam: GENERAL: well-nourished and in no acute distress. Patient is intubated and sedated. Orientation cannot be checked HEAD: Atraumatic, normocephalic. EYES: Pupils equal round and reactive to light, extraocular movements could not be checked, sclera anicteric, conjunctiva are normal. ENT: TMs normal, nares patent, oropharynx clear without exudates. Moist mucous membranes. No oral ulcerations or bleeding gums noted NECK: supple without lymphadenopathy or JVD. Trachea is central. No cervical or axillary lymphadenopathy noted. Carotids are 2+ LUNGS: Breath sounds mostly clear to auscultation patient is noted to have bibasal crackles at the extreme bases CHEST: Palpation of the chest wall shows no significant chest wall tenderness or abnormalities. HEART: [place] [employer], No PSH, 1/6 SHIVAM aortic area, 1/6 montiel systolic murmur mitral area , no rubs or gallops. ABDOMEN: Soft, no significant tenderness appreciated, normoactive bowel sounds. No guarding, no rebound. No rigidity noted . No masses appreciated. EXTREMITIES: Pedal pulses are 1-2+, no calf tenderness noted, 1+ pedal edema noted. No clubbing or cyanosis. NEUROLOGICAL: The patient cannot participate in the neurological exam but no facial asymmetry noted. Extremities slightly hypotonic PSYCH: This cannot be evaluated. Patient cannot participate. SKIN: No significant ecchymosis, rash, or signs of pruritus noted. MUSCULOSKELETAL EXAM: No significant joint swelling noted. Patient cannot participate in musculoskeletal exam. Patient noted to have bilateral foot drop , could be effect of sedation. In addition patient noted to have some chronic arthritic changes both hands. Results Laboratory Results: 12/21/16 06:55 12/21/16 06:55 12/20/16 12/20/16 12/20/16 23:19 23:19 23:25 WBC 14.8 H RBC 4.59 Hgb 12.6 Hct 37.4 MCV 82 MCH 27.4 MCHC 33.6 RDW 16.8 H Plt Count 182 Seg Neutrophils % Not Reportable Lymphocytes % Not Reportable Monocytes % Not Reportable Eosinophils % Not Reportable Basophils % Not Reportable Absolute Neutrophils Not Reportable Absolute Lymphocytes Not Reportable Absolute Monocytes Not Reportable Absolute Eosinophils Not Reportable Absolute Basophils Not Reportable Carbonic Acid 0.88 L HCO3/H2CO3 Ratio 22:1 ABG pH 7.45 ABG pCO2 29.2 L ABG pO2 81.8 ABG HCO3 19.7 L ABG O2 Saturation 96.6 ABG Base Excess -3.1 VBG pH VBG pCO2 VBG HCO3 VBG Base Excess FiO2 30% Sodium 132.2 L Potassium 2.3 L* Chloride 103 Carbon Dioxide 19 L Anion Gap 10 BUN 12 Creatinine 2.22 H Est GFR ( Amer) 27 L Est GFR (Non-Af Amer) 22 L Glucose 289 H Calcium 8.1 L Magnesium 1.2 L* 12/21/16 12/21/16 12/21/16 04:13 06:55 06:55 WBC 12.8 H RBC 3.93 Hgb 10.8 L Hct 31.9 L MCV 81 MCH 27.4 MCHC 33.8 RDW 16.8 H Plt Count 169 Seg Neutrophils % 80.9 H Lymphocytes % 7.4 L Monocytes % 6.5 Eosinophils % 4.8 Basophils % 0.4 Absolute Neutrophils 10.3 H Absolute Lymphocytes 0.9 Absolute Monocytes 0.8 Absolute Eosinophils 0.6 Absolute Basophils 0.1 Carbonic Acid HCO3/H2CO3 Ratio ABG pH ABG pCO2 ABG pO2 ABG HCO3 ABG O2 Saturation ABG Base Excess VBG pH 7.40 VBG pCO2 34.8 L VBG HCO3 21.1 VBG Base Excess -3.1 FiO2 Sodium 137.4 Potassium 2.5 L* Chloride 106 Carbon Dioxide 22 Anion Gap 9 BUN 14 Creatinine 2.20 H Est GFR ( Amer) 27 L Est GFR (Non-Af Amer) 23 L Glucose 125 H Calcium 7.6 L Magnesium 1.9 12/17/16 10:10 Cerebral Spinal Fluid - Csf Gram Stain - Final 12/17/16 10:10 Cerebral Spinal Fluid - Csf CSF Culture - Final NO GROWTH 3 DAYS 12/20/16 12/21/16 23:19 04:13 Troponin I 0.203 0.169 EKG Comments: Sinus tachycardia, borderline Q waves inferiorly but no acute ST-T wave changes noted. Impressions: Head CT 12/16/16 12:02 IMPRESSION: Motion artifact. No gross acute changes. Extensive subcortical white matter low attenuation in the bifrontal and biparietal regions in a parasagittal watershed distribution from remote prior ischemic change. This is similar compared to studies dating back to 2006 EVIDENCE OF ACUTE STROKE: NO. Lumbar Puncture 12/17/16 08:19 IMPRESSION: Lumbar puncture under fluoroscopy. No immediate complication. Head MRI 12/18/16 00:00 IMPRESSION: Very limited study. Chronic findings similar compared to MRI brain 03/04/2007 EVIDENCE OF ACUTE STROKE: NO. Guidance Fluoroscopy 12/19/16 00:00 IMPRESSION: SUCCESSFUL PLACEMENT OF A 5 FR DUAL LUMEN 41 CM PICC IN THE LEFT BASILIC VEIN. Interventional Vascular Procedure 12/19/16 00:00 IMPRESSION: SUCCESSFUL PLACEMENT OF A 5 FR DUAL LUMEN 41 CM PICC IN THE LEFT BASILIC VEIN. PICC Line Insertion 12/19/16 00:00 IMPRESSION: SUCCESSFUL PLACEMENT OF A 5 FR DUAL LUMEN 41 CM PICC IN THE LEFT BASILIC VEIN. Lower Extremity CT 12/20/16 00:00 IMPRESSION: Apparent buckle fracture of the anterior cortex of the proximal tibial metaphysis, likely on the basis of decreased mineralization. Given the degree of osteopenia, the chronicity of this finding is uncertain. Recommend correlation with timing and mechanism of injury. Chest X-Ray 12/21/16 00:00 IMPRESSION: 1. Lines and tubes are in appropriate position. 2. Probable left basilar atelectasis. 3. No pneumothorax or pneumomediastinum. 2010 [employer]- All Rights Reserved Assessment & Plan - Diagnosis (1) Elevated troponin Is this a current diagnosis for this admission?: Yes Plan: Most likely related to respiratory distress secondary to aspiration but cannot rule out pulmonary embolism. Patient being transferred to tertiary care center , further evaluation could be performed there. This suspicion was related to the nurse in the unit and also the attending hospitalist. (2) Acute respiratory failure with hypoxia Is this a current diagnosis for this admission?: Yes Plan: Continue artificial ventilation and oxygenation. Exact etiology not clear but differential diagnosis includes acute aspiration, pulmonary embolism etc. (3) Aspiration into airway Qualifiers: Encounter type: initial encounter Qualified Code(s): T17.908A - Unspecified foreign body in respiratory tract, part unspecified causing other injury, initial encounter Is this a current diagnosis for this admission?: Yes Plan: This was suspected by the hospitalist who attended to the patient last night and early this morning. (4) History of seizure disorder Is this a current diagnosis for this admission?: Yes Plan: Currently being well managed by hospitalist. (5) Hypomagnesemia Is this a current diagnosis for this admission?: Yes Plan: Continue replacement therapy. This may also help with control of seizures (6) Status epilepticus Is this a current diagnosis for this admission?: Yes Plan: Currently being well managed by hospitalist. - Notes Notes: CODE STATUS was discussed, patient remains full code. Surrogate decision-maker patient's . Multiple medical problems were addressed. More than 50% of the time spent coordinating care, discussing management plans with involved caregivers. Management plans discussed with involved personnels. Medical decision making was of moderate to high complexity, patient's has multiple comorbidities. - Time Time Spent: 50 to 70 Minutes Medications reviewed and adjusted accordingly: Yes
--- NOTE | 2016-12-21 17:01 | EKG REPORT ---
SEVERITY:- BORDERLINE ECG - SINUS TACHYCARDIA VENTRICULAR PREMATURE COMPLEX BORDERLINE INFERIOR Q WAVES : Confirmed by: Lisset Price MD 21-Dec-2016 17:01:11
== END 2016-12-21 10:37 | disposition short-term general hospital (02) | DRG 100 ==
LOC: ER 11:59 → EH 18:24 → OBSVTOIN 18:29 → ICU 20:14 → 4N 12-18 23:17 → ICU 12-21 02:14
PROVIDERS: ADMIT Internal Medicine; ATTEND Internal Medicine
PROC: 009U3ZX Drainage of Spinal Canal, Percutaneous Approach, Diagnostic (ICD-10-PCS; 2016-12-17)
PROC: B01B1ZZ Fluoroscopy of Spinal Cord using Low Osmolar Contrast (ICD-10-PCS; 2016-12-17)
PROC: 02HV33Z Insertion of Infusion Device into Superior Vena Cava, Percutaneous Approach (ICD-10-PCS; 2016-12-19)
PROC: B5181ZA Fluoroscopy of Superior Vena Cava using Low Osmolar Contrast, Guidance (ICD-10-PCS; 2016-12-19)
PROC: B548ZZA Ultrasonography of Superior Vena Cava, Guidance (ICD-10-PCS; 2016-12-19)
PROC: 0BH17EZ Insertion of Endotracheal Airway into Trachea, Via Natural or Artificial Opening (ICD-10-PCS; principal; 2016-12-21)
PROC: 5A1935Z Respiratory Ventilation, Less than 24 Consecutive Hours (ICD-10-PCS; 2016-12-21)
DX: G40.901 Epilepsy, unspecified, not intractable, with status epilepticus (principal); J96.01 Acute respiratory failure with hypoxia; J69.0 Pneumonitis due to inhalation of food and vomit; B00.3 Herpesviral meningitis; N17.9 Acute kidney failure, unspecified; B34.9 Viral infection, unspecified; I10 Essential (primary) hypertension; F32.9 Major depressive disorder, single episode, unspecified; Z96.643 Presence of artificial hip joint, bilateral; I69.319 Unspecified symptoms and signs involving cognitive functions following cerebral infarction; F01.50 Vascular dementia, unspecified severity, without behavioral disturbance, psychotic disturbance, mood disturbance, and anxiety; E87.6 Hypokalemia; D64.9 Anemia, unspecified; R74.8 Abnormal levels of other serum enzymes; E83.42 Hypomagnesemia; E05.90 Thyrotoxicosis, unspecified without thyrotoxic crisis or storm; E03.9 Hypothyroidism, unspecified; Z90.710 Acquired absence of both cervix and uterus; Z79.899 Other long term (current) drug therapy; I95.2 Hypotension due to drugs; T41.295A Adverse effect of other general anesthetics, initial encounter; Y92.239 Unspecified place in hospital as the place of occurrence of the external cause; R00.0 Tachycardia, unspecified; B37.9 Candidiasis, unspecified; Z78.1 Physical restraint status
CPT/HCPCS: 31500; 36415; 36569; 36600; 62270; 70450; 70551; 71010; 76937; 77001; 77003; 80048; 80053; 80177; 80307; 81001; 82550; 82553; 82803; 82945; 82962; 83735; 84157; 84439; 84443; 84481; 84484; 85025; 85610; 85730; 86403; 87040; 87070; 87086; 87205; 87252; 89050; 93005; 93010; 94002; 94640; 94660; 96365; 96375; 99285; J0133; J0330; J0696; J1165; J1200; J1450; J1630; J1642; J1644; J1953; J2060; J2250; J2270; J2543; J2704; J3360; J3370; J3475; J3480; J3490; J7030; J7050; J7060; J7620

== ENCOUNTER 2017-02-27 09:41 | Inpatient (IN) | payer OTHER, MEDICAID ==
[2017-02-27] MEDS ORDERED: NORMAL SALINE 1000 ML 1,000 ML IV ONE (09:51)
[2017-02-27 10:12] LABS: ABSOLUTE LYMPHOCYTES (AUTO) 1.4 10^3/uL (0.5-4.7); ABSOLUTE MONOCYTES (AUTO) 1.6 10^3/uL (0.1-1.4); ABSOLUTE NEUT (AUTO) 11.5 10^3/uL (1.7-8.2); BASOPHILS % (AUTO) 0.3 % (0-2); EOSINOPHILS % (AUTO) 0.1 % (0-6); HEMATOCRIT 33.7 % (36.0-47.0); HEMOGLOBIN 11.2 g/dL (12.0-15.5); HGB HCT DIFFERENCE -0.1; LYMPHOCYTES % (AUTO) 9.8 % (13-45); MEAN CORPUSCULAR HEMOGLOBIN 27.2 pg (27.0-33.4); MEAN CORPUSCULAR HGB CONC 33.1 g/dL (32.0-36.0); MEAN CORPUSCULAR VOLUME 82 fl (80-97); MONOCYTES % (AUTO) 11.1 % (3-13); RED BLOOD COUNT 4.09 10^6/uL (3.72-5.28); RED CELL DISTRIBUTION WIDTH 15.8 % (11.5-14.0); SEGMENTED NEUTROPHILS % (AUTO) 78.7 % (42-78); WHITE BLOOD COUNT 14.6 10^3/uL (4.0-10.5)
[2017-02-27] MEDS ORDERED: ONDANSETRON HCL INJ/PF 4 MG/2 ML SDV IV ONE (10:16)
[2017-02-27] MEDS ORDERED: MORPHINE SULFATE 10 MG/ML INJ IV ONE ×2 (10:16→11:23)
[2017-02-27 10:18] LABS: PROTHROMBIN TIME 15.1 SEC (11.4-15.4)
[2017-02-27 10:19] LABS: PARTIAL THROMBOPLASTIN TIME 34.2 SEC (23.5-35.8)
[2017-02-27 10:33] LABS: ALANINE AMINOTRANSFERASE 24 U/L (9-52); ALBUMIN 3.5 g/dL (3.5-5.0); ALKALINE PHOSPHATASE 72 U/L (38-126); ANION GAP 10 (5-19); ASPARTATE AMINO TRANSFERASE 31 U/L (14-36); BILIRUBIN,DIRECT 0.3 mg/dL (0.0-0.4); BILIRUBIN,TOTAL 0.7 mg/dL (0.2-1.3); BLOOD UREA NITROGEN 16 mg/dL (7-20); CALCIUM 8.9 mg/dL (8.4-10.2); CARBON DIOXIDE 27 mmol/L (22-30); CHLORIDE 95 mmol/L (98-107); CREATINE KINASE 786 U/L (30-135); CREATININE RESULT 0.57 mg/dL (0.52-1.25); GLUCOSE 164 mg/dL (75-110); POTASSIUM 3.5 mmol/L (3.6-5.0); SODIUM 132.1 mmol/L (137-145); TOTAL PROTEIN 6.9 g/dL (6.3-8.2)
--- NOTE | 2017-02-27 10:43 | RADIOLOGY REPORT (SQ) ---
EXAM DESCRIPTION: HIP RIGHT AP/LATERAL COMPLETED DATE/TIME: 02/27/2017 10:32 am REASON FOR STUDY: pain swelling COMPARISON: None. NUMBER OF VIEWS: Two views. TECHNIQUE: AP pelvis and additional frog-leg view of the right hip. LIMITATIONS: None. FINDINGS: MINERALIZATION: Normal. RIGHT HIP: There is a comminuted fracture of the proximal right femur. Hip arthroplasty remains posi tion. However, the distal portion of the medullary component is no longer within bone. LEFT HIP: Left hip arthroplasty. PUBIS AND ISCHIUM: No fracture. PELVIS: No fracture. SACRUM: No fracture or dislocation. No worrisome bone lesions. LOWER LUMBAR SPINE: No fracture or dislocation. No worrisome bone lesions. No significant disc disea se. SOFT TISSUES: No findings. OTHER: No other significant finding. IMPRESSION: Comminuted fracture of the right proximal femur. TECHNICAL DOCUMENTATION: JOB ID: [id number] [employer]- All Rights Reserved
[2017-02-27] MEDS ORDERED: ALBUTEROL SULFATE 0.083% NEB 2.5 MG/3 ML AMPUL NEB PRN (10:59)
[2017-02-27] MEDS ORDERED: ONDANSETRON HCL INJ/PF 4 MG/2 ML SDV IV PRN (10:59)
[2017-02-27] MEDS ORDERED: ACETAMINOPHEN 325 MG TABLET PO PRN (10:59)
[2017-02-27] MEDS ORDERED: FENTANYL 50 MCG/HR PATCH.TD72 TD SCH (11:15)
--- NOTE | 2017-02-27 11:20 | ER Document Report ---
ED General - General Chief Complaint: Leg Swelling Stated Complaint: RIGHT LEG SWELLING Time Seen by Provider: 02/27/17 09:50 TRAVEL OUTSIDE OF THE [place] IN LAST 30 DAYS: No - HPI Patient complains to provider of: Right leg swelling hip pain Notes: Patient coming in for evaluation of right hip pain right leg swelling. Patient has a history of bilateral hip replacement states last night with sleep with no abnormality woke up this morning with swelling and pain. Patient has a history of hypertension seizure disorder patient denies any history of trauma denies any falls denies any seizures last night. Denies any trauma or abuse. Patient resting comfortably upon my evaluation his legs bent to the hip 90 knees 90. Patient is on chronic opioid therapy at home with 30 mg of extended release morphine patient states took her medication just prior to arrival. - Related Data Allergies/Adverse Reactions: No Known Allergies Allergy (Verified 01/27/12 19:02) Home Medications: Current Home Medications Aspirin [Aspirin 81 mg Chewable Tablet] 81 mg PO DAILY 02/27/17 [History] Calcium Carbonate [Calcium] 600 mg PO DAILY 02/27/17 [History] Cholecalciferol (Vitamin D3) [Vitamin D3 5000 unit Capsule] 5,000 unit PO DAILY 02/27/17 [History] Cyanocobalamin (Vitamin B-12) [Vitamin B12] 2,000 mcg PO DAILY 02/27/17 [History ] Levetiracetam [Keppra 500 mg Tablet] 1,000 mg PO BID 02/27/17 [History] Lidocaine 1 each TP DAILY 02/27/17 [History] Loperamide HCl [Loperamide] 2 mg PO DAILYP PRN 02/27/17 [History] Potassium 595 mg PO DAILY 02/27/17 [History] Quetiapine Fumarate [Seroquel] 50 mg PO BID 02/27/17 [History] Sennosides [Senna] 8.6 mg PO DAILYP PRN 02/27/17 [History] Trazodone HCl 200 mg PO HSP PRN 02/27/17 [History] Vitamin E 400 unit PO DAILY 02/27/17 [History] Past Medical History - Social History Smoking Status: Unknown if Ever Smoked Family History: Reviewed & Not Pertinent Patient has suicidal ideation: No Patient has homicidal ideation: No - Past Medical History Cardiac Medical History: Reports: Hx Hypertension Denies: Hx Coronary Artery Disease, Hx Heart Attack Pulmonary Medical History: Denies: Hx Asthma, Hx Bronchitis, Hx COPD, Hx Pneumonia, Hx Tuberculosis Neurological Medical History: Reports: Hx Cerebrovascular Accident - 2006, FROM BACTERIAL MENINGITIS PSEUDAMONAS, Hx Seizures - LAST IN 2008 Renal/ Medical History: Denies: Hx Peritoneal Dialysis Musculoskeltal Medical History: Denies Hx Arthritis Psychiatric Medical History: Reports: Hx Dementia, Hx Depression Past Surgical History: Reports: Hx Breast Surgery - L lumpectomy, Hx Hysterectomy, Hx Orthopedic Surgery - bilateral hip replacement, R rotator cuff repair, R ankle fx and reapir - Immunizations Hx Diphtheria, Pertussis, Tetanus Vaccination: No Hx Pneumococcal Vaccination: 03/16/11 Review of Systems - Review of Systems Constitutional: No symptoms reported EENT: No symptoms reported Cardiovascular: No symptoms reported Respiratory: No symptoms reported Gastrointestinal: No symptoms reported Genitourinary: No symptoms reported Female Genitourinary: No symptoms reported Musculoskeletal: Other - Hip pain Skin: No symptoms reported Hematologic/Lymphatic: No symptoms reported Neurological/Psychological: No symptoms reported -: Yes All other systems reviewed and negative Physical Exam - Vital signs Vitals: Temp Resp Pulse Ox 98.7 F 14 95 02/27/17 09:47 02/27/17 09:47 02/27/17 09:47 Interpretation: Normal - General General appearance: Appears well, Alert - HEENT Head: Normocephalic, Atraumatic Eyes: Normal Pupils: PERRL - Respiratory Respiratory status: No respiratory distress Chest status: Nontender Breath sounds: Normal Chest palpation: Normal - Cardiovascular Rhythm: Regular Heart sounds: Normal auscultation Murmur: No - Abdominal Inspection: Normal Distension: No distension Bowel sounds: Normal Tenderness: Nontender Organomegaly: No organomegaly - Back Back: Normal, Nontender - Extremities General upper extremity: Normal inspection, Nontender, Normal color, Normal ROM , Normal temperature General lower extremity: Normal color, Other - Patient with tenderness to palpation of the right hip there is a fullness of the posterior aspect of the thigh. There is slight deformity consistent with a possible dislocation. Pedal pulses are felt distally. Left hip unaffected. No bruising no erythema - Neurological Neuro grossly intact: Yes Cognition: Normal Orientation: AAOx4 Jaxson Coma Scale Eye Opening: Spontaneous Spencer Coma Scale Verbal: Oriented Spencer Coma Scale Motor: Obeys Commands Spencer Coma Scale Total: 15 Speech: Normal Motor strength normal: LUE, RUE, LLE, RLE Sensory: Normal - Psychological Associated symptoms: Normal affect, Normal mood - Skin Skin Temperature: Warm Skin Moisture: Dry Skin Color: Normal Course - Re-evaluation Re-evalutation: 02/27/17 13:43 X-ray shows a fracture with the stem of the hip arthroplasty out of the femur. Did discuss with orthopedics recommended medical admission due to medical problems. Discussed with hospitalist will admit for further evaluation. 02/27/17 13:44 Orthopedic still request a knee immobilizer however this is made difficult as the patient cannot be placed into a position of comfort to allow placement of the knee in immobilizer. Patient after a total of 4 mL's of morphine did have changes in her pulse ox dipping down to as low as 88. Patient was continuously monitored. - Vital Signs Vital signs: Temp Pulse Resp BP Pulse Ox 98.7 F 14 122/60 94 02/27/17 09:47 02/27/17 13:01 02/27/17 13:01 02/27/17 13:11 - Laboratory Result Diagrams: 02/27/17 09:54 02/27/17 09:54 Laboratory results interpreted by me: 02/27/17 02/27/17 09:54 09:54 WBC 14.6 H Hgb 11.2 L Hct 33.7 L RDW 15.8 H Seg Neutrophils % 78.7 H Lymphocytes % 9.8 L Absolute Neutrophils 11.5 H Absolute Monocytes 1.6 H Sodium 132.1 L Potassium 3.5 L Chloride 95 L Glucose 164 H Creatine Kinase 786 H Discharge - Discharge Clinical Impression: Seizure disorder, Hypokalemia Closed right hip fracture Qualifiers: Encounter type: initial encounter Qualified Code(s): S72.001A - Fracture of unspecified part of neck of right femur, initial encounter for closed fracture HTN (hypertension) Qualifiers: Hypertension type: unspecified Qualified Code(s): I10 - Essential (primary) hypertension Chronic pain Qualifiers: Chronic pain type: other chronic pain Qualified Code(s): G89.29 - Other chronic pain Condition: Good Disposition: ADMITTED INPATIENT Admitting Provider: Hospitalist - [facility] Unit Admitted: [facility]
[2017-02-27] MEDS: HYDROMORPHONE HCL INJ/PF 2 MG/ML AMPULE IV PRN ×5 (11:46→23:19)
--- NOTE | 2017-02-27 13:00 | RADIOLOGY REPORT (SQ) ---
EXAM DESCRIPTION: CHEST SINGLE VIEW COMPLETED DATE/TIME: 02/27/2017 12:42 pm REASON FOR STUDY: cough COMPARISON: 12/21/2016 EXAM PARAMETERS: NUMBER OF VIEWS: One view. TECHNIQUE: Single frontal radiographic view of the chest acquired. RADIATION DOSE: NA LIMITATIONS: None. FINDINGS: LUNGS AND PLEURA: No opacities, masses or pneumothorax. No pleural effusion. MEDIASTINUM AND HILAR STRUCTURES: No masses. Contour normal. HEART AND VASCULAR STRUCTURES: Heart normal in size. Normal vasculature. BONES: No acute findings. HARDWARE: Endotracheal tube and NG tube are no longer present. PICC line no longer present. OTHER: No other significant finding. IMPRESSION: NO ACUTE RADIOGRAPHIC FINDING IN THE CHEST. TECHNICAL DOCUMENTATION: JOB ID: [id number] [employer]- All Rights Reserved
[2017-02-27 13:08] LABS: APPEARANCE,URINE SLIGHTLY-CLOUDY; BILIRUBIN,URINE NEGATIVE (NEGATIVE); GLUCOSE, URINE NEGATIVE (NEGATIVE); KETONES,URINE 20 mg/dL (NEGATIVE); LEUKOCYTE ESTERASE,URINE MODERATE (NEGATIVE); NITRITE,URINE NEGATIVE (NEGATIVE); PROTEIN,URINE 100 mg/dL (NEGATIVE); URINE SPECIFIC GRAVITY 1.028
[2017-02-27] MEDS ORDERED: PREGABALIN 25 MG CAPSULE PO SCH (14:00)
[2017-02-27] MEDS: QUETIAPINE FUMARATE 25 MG TABLET PO SCH (17:21)
[2017-02-27] MEDS: DOCUSATE SODIUM 100 MG CAPSULE PO SCH (17:22)
[2017-02-27] MEDS: NORMAL SALINE 1000 ML 1,000 ML IV PRN (17:23)
[2017-02-27] MEDS: BACLOFEN 10 MG TABLET PO PRN ×2 (17:34→17:40)
[2017-02-27] MEDS: MORPHINE SULFATE IR 30 MG TABLET PO PRN (17:37)
[2017-02-27] MEDS ORDERED: (PENDING PHARMACY ID) (Quetiapine Fumarate [Seroquel] 50 MG) PO SCH (18:00)
[2017-02-27] MEDS ORDERED: INFLUENZA ADLT QUAD (36MOS+) 2017-18 VAC 0.5 ML SYR IM PRN (20:00)
[2017-02-27] MEDS ORDERED: ZOLPIDEM TARTRATE 12.5 MG PO SCH (22:00)
[2017-02-27] MEDS ORDERED: (PENDING PHARMACY ID) (Dextromethorphan Hbr/Quinidine [Nuedexta 20-10 Mg Capsule] 1 CAP) PO SCH (22:00)
[2017-02-27] MEDS: LEVETIRACETAM 500 MG TABLET PO SCH (22:53)
[2017-02-27] MEDS: ATORVASTATIN CALCIUM 10 MG TABLET PO SCH (22:53)
[2017-02-27] MEDS: PREGABALIN 25 MG CAPSULE PO SCH (22:53)
[2017-02-27] MEDS: ZOLPIDEM TARTRATE 5 MG TABLET PO SCH (22:54)
[2017-02-28] MEDS ORDERED: NORMAL SALINE 1000 ML 1,000 ML IV ONE (02:30)
[2017-02-28] MEDS: HYDROMORPHONE HCL INJ/PF 2 MG/ML AMPULE IV PRN ×4 (02:52→12:00)
[2017-02-28] MEDS ORDERED: CEFTRIAXONE 1 GM/D5W RTU 1 GM/50 ML RTUPB IV ONE (03:00)
[2017-02-28] MEDS: LEVOTHYROXINE SODIUM 0.075 MG TABLET PO SCH (05:55)
[2017-02-28] MEDS: LEVOTHYROXINE SODIUM 0.1 MG TABLET PO SCH (05:55)
[2017-02-28] MEDS: LANSOPRAZOLE 30 MG TAB.RAP.DR PO SCH (05:55)
[2017-02-28] MEDS: PREGABALIN 25 MG CAPSULE PO SCH ×3 (05:55→22:18)
[2017-02-28 06:22] LABS: ABSOLUTE BASOPHILS # (AUTO) 0.1 10^3/uL (0.0-0.2); ABSOLUTE EOSINOPHILS # (AUTO) 0.2 10^3/uL (0.0-0.6); ABSOLUTE LYMPHOCYTES (AUTO) 2.7 10^3/uL (0.5-4.7); ABSOLUTE MONOCYTES (AUTO) 1.3 10^3/uL (0.1-1.4); BASOPHILS % (AUTO) 0.5 % (0-2); HEMOGLOBIN 9.7 g/dL (12.0-15.5); HGB HCT DIFFERENCE -0.9; LYMPHOCYTES % (AUTO) 21.9 % (13-45); MEAN CORPUSCULAR HEMOGLOBIN 26.8 pg (27.0-33.4); MEAN CORPUSCULAR HGB CONC 32.5 g/dL (32.0-36.0); MEAN CORPUSCULAR VOLUME 83 fl (80-97); MONOCYTES % (AUTO) 10.9 % (3-13); RED BLOOD COUNT 3.64 10^6/uL (3.72-5.28); SEGMENTED NEUTROPHILS % (AUTO) 64.7 % (42-78); WHITE BLOOD COUNT 12.4 10^3/uL (4.0-10.5)
[2017-02-28 06:36] LABS: ANION GAP 8 (5-19); BLOOD UREA NITROGEN 15 mg/dL (7-20); CARBON DIOXIDE 26 mmol/L (22-30); CHLORIDE 100 mmol/L (98-107); CREATININE RESULT 0.73 mg/dL (0.52-1.25); GLUCOSE 96 mg/dL (75-110); MAGNESIUM 1.7 mg/dL (1.6-2.3); POTASSIUM 3.2 mmol/L (3.6-5.0); SODIUM 133.9 mmol/L (137-145)
--- NOTE | 2017-02-28 06:56 | PDOC CONSULTATION ---
Consultation Consult Date: 02/28/17 Consult reason:: Right femur fracture History of Present Illness Admission Date/PCP: 02/27/17 11:41 IRIS PAUL MD Patient complains of: Right hip pain History of Present Illness: The patient is a 61-year-old white female with multiple comorbidities who underwent bilateral hip replacement in 2008. The patient now presents with a right periprosthetic femur fracture. Orthopedics is consulted for fracture management. Past Medical History Cardiac Medical History: Reports: Hypertension Denies: Coronary Artery Disease, Myocardial Infarction Pulmonary Medical History: Denies: Asthma, Bronchitis, Chronic Obstructive Pulmonary Disease (COPD), Pneumonia, Tuberculosis Neurological Medical History: Reports: Seizures - LAST IN 2008 Musculoskeltal Medical History: Denies: Arthritis Psychiatric Medical History: Reports: Dementia, Depression Hematology: Reports: Anemia Past Surgical History Past Surgical History: Reports: Hysterectomy, Orthopedic Surgery - bilateral hip replacement, R rotator cuff repair, R ankle fx and reapir Social History Information Source: Patient, [facility] Records Smoking Status: Unknown if Ever Smoked Frequency of Alcohol Use: None Hx Recreational Drug Use: No Drugs: None Hx Prescription Drug Abuse: No - Advance Directive Resuscitation Status: Full Code Family History Family History: Reviewed & Not Pertinent Parental Family History Reviewed: No Children Family History Reviewed: No Sibling(s) Family History Reviewed.: No Medication/Allergy Home Medications: Atorvastatin Calcium [Lipitor 10 mg Tablet] 10 mg PO QHS 12/16/16 Dextromethorphan HBr/Quinidine [Nuedexta 20-10 mg Capsule] 1 cap PO Q12 Fentanyl [Duragesic 50 Mcg/Hr Transdermal Patch] 1 each TD Q3D 12/16/16 Letrozole [Femara 2.5 Mg Tablet] 2.5 mg PO DAILY 12/16/16 Levothyroxine Sodium [Synthroid] 175 mcg PO Q6AM 12/16/16 Morphine Sulfate [Morphine Ir 30 mg Tablet] 30 mg PO Q8 12/16/16 Zolpidem Tartrate [Zolpidem Tartrate ER] 12.5 mg PO QHS 12/16/16 Aspirin [Aspirin 81 mg Chewable Tablet] 81 mg PO DAILY 02/27/17 Calcium Carbonate [Calcium] 600 mg PO DAILY 02/27/17 Cholecalciferol (Vitamin D3) [Vitamin D3 5000 unit Capsule] 5,000 unit PO DAILY 02/27/17 Cyanocobalamin (Vitamin B-12) [Vitamin B12] 2,000 mcg PO DAILY 02/27/17 Levetiracetam [Keppra 500 mg Tablet] 1,000 mg PO BID 02/27/17 Lidocaine 1 each TP DAILY 02/27/17 Loperamide HCl [Loperamide] 2 mg PO DAILYP PRN 02/27/17 Potassium 595 mg PO DAILY 02/27/17 Quetiapine Fumarate [Seroquel] 50 mg PO BID 02/27/17 Sennosides [Senna] 8.6 mg PO DAILYP PRN 02/27/17 Trazodone HCl 200 mg PO HSP PRN 02/27/17 Vitamin E 400 unit PO DAILY 02/27/17 Allergies/Adverse Reactions: No Known Allergies Allergy (Verified 01/27/12 19:02) Review of Systems All systems: as per PMH Physical Exam Vital Signs: Temp Pulse Resp BP Pulse Ox 36.8 C 94 12 101/62 94 02/28/17 04:54 02/28/17 04:54 02/28/17 04:54 02/28/17 04:54 02/28/17 04:54 Intake & Output 02/26/17 02/27/17 02/28/17 06:59 06:59 06:59 Intake Total 2166 Balance 2166 Weight 81.81 kg Physical Exam: The patient is a middle-aged white female sleeping soundly in hospital bed. In spite of a sternal rub I am unable to arouse her this morning. General appearance: PRESENT: no acute distress Head exam: PRESENT: normocephalic Respiratory exam: PRESENT: unlabored Cardiovascular exam: PRESENT: RRR Pulses: PRESENT: +1 pedal pulses bilateral Vascular exam: PRESENT: normal capillary refill GI/Abdominal exam: PRESENT: soft Rectal exam: PRESENT: deferred Extremities exam: PRESENT: other - Right lower extremity is flexed and internally rotated. There is brisk capillary refill distally. This palpable pulses. Results Laboratory Results: 02/28/17 06:01 02/28/17 06:01 02/27/17 02/28/17 02/28/17 12:41 06:01 06:01 WBC 12.4 H RBC 3.64 L Hgb 9.7 L Hct 30.0 L MCV 83 MCH 26.8 L MCHC 32.5 RDW 16.0 H Plt Count 293 Seg Neutrophils % 64.7 Lymphocytes % 21.9 Monocytes % 10.9 Eosinophils % 2.0 Basophils % 0.5 Absolute Neutrophils 8.0 Absolute Lymphocytes 2.7 Absolute Monocytes 1.3 Absolute Eosinophils 0.2 Absolute Basophils 0.1 Sodium 133.9 L Potassium 3.2 L Chloride 100 Carbon Dioxide 26 Anion Gap 8 BUN 15 Creatinine 0.73 Est GFR ( Amer) > 60 Est GFR (Non-Af Amer) > 60 Glucose 96 Calcium 8.0 L Magnesium 1.7 Urine Color DARK YELLOW Urine Appearance SLIGHTLY-CLOUDY Urine pH 6.0 Ur Specific [place] 1.028 Urine Protein 100 H Urine Glucose (UA) NEGATIVE Urine Ketones 20 H Urine Blood SMALL H Urine Nitrite NEGATIVE Ur Leukocyte Esterase MODERATE H Urine WBC (Auto) 21 Urine RBC (Auto) 2 Impressions: Hip/Pelvis X-Ray 02/27/17 09:50 IMPRESSION: Comminuted fracture of the right proximal femur. Chest X-Ray 02/27/17 11:02 IMPRESSION: NO ACUTE RADIOGRAPHIC FINDING IN THE CHEST. Status: Imported from PACS Assessment & Plan - Diagnosis (1) Closed right hip fracture Qualifiers: Encounter type: initial encounter Qualified Code(s): S72.001A - Fracture of unspecified part of neck of right femur, initial encounter for closed fracture Is this a current diagnosis for this admission?: Yes Plan: 61-year-old white male with significant comorbidities who now has a right periprosthetic femur fracture status post hip arthroplasty in 2008. Overall quality of the bone is poor. However it appears that the proximal ingrowth region of the stem is intact with the femur and that the memory remains well fixed. If this is true that a potential open reduction internal fixation with a long plate and onlay cortical strut grafts may be a reasonable first surgical attempt. If this is unsuccessful plan will be to to have the ability to proceed with a revision arthroplasty. This will necessarily involve the acetabular component as well because of the [id number] articulation in the low success rate for dissociating the metal liner from the metal cup historically. The necessary instrumentation should be available by Thursday. Tentative plan at this to the surgical procedure for Thursday pending medical clearance. - Time Time Spent: 50 to 70 Minutes Anticipated discharge: SNF Within: Other
[2017-02-28] MEDS ORDERED: IPRATROPIUM/ALBUTEROL 0.5-2.5 MG/3 ML AMPUL NEB SCH (08:00)
[2017-02-28] MEDS ORDERED: (PENDING PHARMACY ID) (Levothyroxine Sodium [Synthroid] 175 MCG) PO SCH (08:00)
[2017-02-28] MEDS: POTASSI CL 20 MEQ/50 ML RIDER 20 MEQ/50 ML RTUPB IV SCH ×2 (08:11→10:59)
[2017-02-28] MEDS: NORMAL SALINE 1000 ML 1,000 ML IV PRN ×2 (08:16→22:45)
--- NOTE | 2017-02-28 08:19 | PDOC H&P ---
History of Present Illness Admission Date/PCP: 02/27/17 11:41 IRIS PAUL MD Patient complains of: Right hip swelling History of Present Illness: MARIE SEGURA is a 61 year old female with a history of dementia, seizures, depression, thyroidism and stroke now bedbound with a 5 day history of worsening pain. Per patient's , as patient is unable to give any history , she does not appear to be in more pain than usual. She normally yells out however she was yellowing out more often. Overnight patient right hip was noted to be more swollen and tender. On presentation to the ED patient was found to have comminuted fracture of the right proximal femur. This was explained to the . When asked how this could have happened he stated that maybe when patient is being turned in the bed. He denies patient falling out of bed or having any other falls. ED patient is in much distress. Patient was given several doses of morphine to assist with the pain. ED was instructed to put a knee immobilizer in place by Ortho however this was unsuccessful due to patient's severe pain. This was called to admit patient under service. Orthopedics will be consulted to evaluate patient's hip. Past Medical History Cardiac Medical History: Reports: Hypertension Denies: Coronary Artery Disease, Myocardial Infarction Pulmonary Medical History: Denies: Asthma, Bronchitis, Chronic Obstructive Pulmonary Disease (COPD), Pneumonia, Tuberculosis Neurological Medical History: Reports: Seizures - LAST IN 2008 Musculoskeltal Medical History: Denies: Arthritis Psychiatric Medical History: Reports: Dementia, Depression Hematology: Reports: Anemia Past Surgical History Past Surgical History: Reports: Hysterectomy, Orthopedic Surgery - bilateral hip replacement, R rotator cuff repair, R ankle fx and reapir Social History Lives with: Spouse/Significant other Smoking Status: Unknown if Ever Smoked Frequency of Alcohol Use: None Hx Recreational Drug Use: No Hx Prescription Drug Abuse: No - Advance Directive Resuscitation Status: Full Code Family History Family History: Malignancy Parental Family History Reviewed: No Children Family History Reviewed: No Sibling(s) Family History Reviewed.: No Medication/Allergy Home Medications: Atorvastatin Calcium [Lipitor 10 mg Tablet] 10 mg PO QHS 12/16/16 Dextromethorphan HBr/Quinidine [Nuedexta 20-10 mg Capsule] 1 cap PO Q12 Fentanyl [Duragesic 50 Mcg/Hr Transdermal Patch] 1 each TD Q3D 12/16/16 Letrozole [Femara 2.5 Mg Tablet] 2.5 mg PO DAILY 12/16/16 Levothyroxine Sodium [Synthroid] 175 mcg PO Q6AM 12/16/16 Morphine Sulfate [Morphine Ir 30 mg Tablet] 30 mg PO Q8 12/16/16 Zolpidem Tartrate [Zolpidem Tartrate ER] 12.5 mg PO QHS 12/16/16 Aspirin [Aspirin 81 mg Chewable Tablet] 81 mg PO DAILY 02/27/17 Calcium Carbonate [Calcium] 600 mg PO DAILY 02/27/17 Cholecalciferol (Vitamin D3) [Vitamin D3 5000 unit Capsule] 5,000 unit PO DAILY 02/27/17 Cyanocobalamin (Vitamin B-12) [Vitamin B12] 2,000 mcg PO DAILY 02/27/17 Levetiracetam [Keppra 500 mg Tablet] 1,000 mg PO BID 02/27/17 Lidocaine 1 each TP DAILY 02/27/17 Loperamide HCl [Loperamide] 2 mg PO DAILYP PRN 02/27/17 Potassium 595 mg PO DAILY 02/27/17 Quetiapine Fumarate [Seroquel] 50 mg PO BID 02/27/17 Sennosides [Senna] 8.6 mg PO DAILYP PRN 02/27/17 Trazodone HCl 200 mg PO HSP PRN 02/27/17 Vitamin E 400 unit PO DAILY 02/27/17 Allergies/Adverse Reactions: No Known Allergies Allergy (Verified 01/27/12 19:02) Review of Systems ROS unobtainable: Due to mental status Physical Exam Vital Signs: Temp Pulse Resp BP Pulse Ox 98.4 F 92 18 114/57 L 97 02/27/17 15:00 02/27/17 15:00 02/27/17 15:00 02/27/17 15:00 02/27/17 15:00 Intake & Output 02/26/17 02/27/17 02/28/17 06:59 06:59 06:59 Weight 81.81 kg General appearance: PRESENT: obese, severe distress, other - Lying on left side Head exam: PRESENT: normocephalic Eye exam: PRESENT: EOMI. ABSENT: scleral icterus Ear exam: PRESENT: normal external ear exam Mouth exam: PRESENT: moist Neck exam: ABSENT: carotid bruit, JVD, lymphadenopathy, thyromegaly Respiratory exam: PRESENT: clear to auscultation michael. ABSENT: rales, rhonchi, wheezes Cardiovascular exam: PRESENT: RRR. ABSENT: diastolic murmur, rubs, systolic murmur GI/Abdominal exam: PRESENT: normal bowel sounds, soft. ABSENT: distended, guarding, mass, organolmegaly, rebound, tenderness Rectal exam: PRESENT: deferred Extremities exam: PRESENT: pedal edema - Right leg edema of the hip with tenderness to minimal palpation.. ABSENT: calf tenderness, clubbing Musculoskeletal exam: PRESENT: other - bed bound and contracted Neurological exam: PRESENT: alert, awake, oriented to person. ABSENT: motor sensory deficit Psychiatric exam: PRESENT: anxious, normal mood. ABSENT: homicidal ideation, suicidal ideation Skin exam: PRESENT: dry, intact, warm. ABSENT: cyanosis, rash Results Laboratory Results: 02/27/17 12:41 Urine Color DARK YELLOW Urine Appearance SLIGHTLY-CLOUDY Urine pH 6.0 Ur Specific [place] 1.028 Urine Protein 100 H Urine Glucose (UA) NEGATIVE Urine Ketones 20 H Urine Blood SMALL H Urine Nitrite NEGATIVE Ur Leukocyte Esterase MODERATE H Urine WBC (Auto) 21 Urine RBC (Auto) 2 Impressions: Hip/Pelvis X-Ray 02/27/17 09:50 IMPRESSION: Comminuted fracture of the right proximal femur. Chest X-Ray 02/27/17 11:02 IMPRESSION: NO ACUTE RADIOGRAPHIC FINDING IN THE CHEST. Assessment & Plan - Diagnosis (1) Closed right hip fracture Qualifiers: Encounter type: initial encounter Qualified Code(s): S72.001A - Fracture of unspecified part of neck of right femur, initial encounter for closed fracture Is this a current diagnosis for this admission?: Yes Plan: Patient found to have a comminuted fracture of the proximal right femur. Hip arthroplasty remains in position however the distal portion of the medullary component is no longer within the bone. It is noticed that patient has normal mineralization. Of Course with patient being bedbound there is concern for osteoporosis. patient is currently on vitamin D 3 supplementation and calcium. Will check vitamin D levels. Calcium levels are currently normal. (2) UTI (urinary tract infection) Plan: Urine with moderate leukocytes esterase. Patient given ceftriaxone urine culture pending. (3) Hyponatremia Is this a current diagnosis for this admission?: Yes Plan: Possibly secondary to dehydration versus medications. Will start patient on gentle hydration. (4) Hypokalemia Is this a current diagnosis for this admission?: Yes Plan: Will replace repeat labs in a.m. Will also check magnesium level. (5) Seizure disorder Is this a current diagnosis for this admission?: Yes Plan: Continued on Keppra 1000 mg p.o. twice daily. She is also on seizure precautions. (6) History of CVA (cerebrovascular accident) Is this a current diagnosis for this admission?: Yes Plan: Patient is now bedbound as a result. Patient currently on aspirin and statin. (7) Hypothyroidism Is this a current diagnosis for this admission?: Yes Plan: Continue thyroid replacement. (8) Preoperative clearance Is this a current diagnosis for this admission?: Yes Plan: Patient is requiring preoperative clearance for reconstruction of her right hip arthroplasty which is a intermediate risk surgery. Patient is currently bound therefore she has poor functional capacity. Clinical risk factors are history of diastolic heart failure and CVA. From a cardiac standpoint patient is compensated. As for the stroke which occurred years ago, patient is currently on aspirin and statin. Preop EKG was ordered. As patient is bedbound and may have some obstructive pulmonary processes because of this will start incentive spirometry and bronchodilators to maximize lung function. Patients UTI is being treated. Patient remaining medical's conditions are stable. From a medical and cardiac standpoint patient is cleared for surgery. - Time Time Spent: 30 to 50 Minutes - Inpatient Certification Medical Necessity: Need for Surgery
[2017-02-28] MEDS ORDERED: MAGNESIUM SULFATE/D5W 1 GM/100 ML RTUPB IV ONE (08:45)
[2017-02-28] MEDS: LETROZOLE 2.5 MG TABLET PO SCH (09:07)
[2017-02-28] MEDS: CALCIUM CARBONATE 500 MG TABLET PO SCH (09:08)
[2017-02-28] MEDS: ASPIRIN 81 MG TABLET, CHEWABLE PO SCH (09:08)
[2017-02-28] MEDS: LEVETIRACETAM 500 MG TABLET PO SCH ×2 (09:08→22:09)
[2017-02-28] MEDS: BACLOFEN 10 MG TABLET PO PRN ×2 (09:08→22:09)
[2017-02-28] MEDS: DOCUSATE SODIUM 100 MG CAPSULE PO SCH ×2 (09:09→18:00)
[2017-02-28] MEDS: CEFTRIAXONE 1 GM/D5W RTU 1 GM/50 ML RTUPB IV SCH (09:09)
[2017-02-28] MEDS: QUETIAPINE FUMARATE 25 MG TABLET PO SCH ×2 (09:09→18:00)
[2017-02-28] MEDS: LIDOCAINE 5% (700 MG) TRANSDERMAL ADH..PATCH TP SCH (09:10)
[2017-02-28] MEDS ORDERED: METOPROLOL TARTRATE PF/INJ 5 MG/5 ML SDV IV PRN (09:24)
[2017-02-28] MEDS ORDERED: DULOXETINE HCL 20 MG CAPSULE.DR PO SCH (10:00)
[2017-02-28] MEDS ORDERED: METOPROLOL SUCCINATE 25 MG TAB.SR.24H PO SCH (10:00)
[2017-02-28] MEDS ORDERED: (PENDING PHARMACY ID) (Calcium Carbonate [Calcium] 600 MG) PO SCH (10:00)
--- NOTE | 2017-02-28 15:44 | PDOC PROGRESS REPORT ---
Subjective Progress Note for:: 02/28/17 Subjective:: Patient is a 61-year-old woman with dementia and has been bedbound over the last 2 years secondary to a stroke presents with a right hip fracture involving the distal half of the arthroplasty. Patient has been evaluated by Dr. Yeh and plan is for procedure on Thursday. Patient has been doing okay although she is tachycardic. She is currently resting. Reason For Visit: RIGHT HIP FRACTURE Physical Exam Vital Signs: Temp Pulse Resp BP Pulse Ox 97.4 F 113 H 12 91/50 L 100 02/28/17 11:33 02/28/17 11:33 02/28/17 11:33 02/28/17 11:33 02/28/17 11:33 Intake & Output 02/27/17 02/28/17 03/01/17 06:59 06:59 06:59 Intake Total 2782 420 Output Total 400 200 Balance 2382 220 Weight 90.6 kg General appearance: PRESENT: no acute distress, obese Head exam: PRESENT: normocephalic Mouth exam: PRESENT: moist Respiratory exam: PRESENT: clear to auscultation michael Cardiovascular exam: PRESENT: tachycardia GI/Abdominal exam: PRESENT: normal bowel sounds, soft. ABSENT: tenderness Rectal exam: PRESENT: deferred Gentrourinary exam: PRESENT: indwelling catheter Neurological exam: PRESENT: other - Bedbound Results Laboratory Results: 02/28/17 06:01 02/28/17 06:01 02/28/17 02/28/17 02/28/17 06:01 06:01 06:01 WBC 12.4 H RBC 3.64 L Hgb 9.7 L Hct 30.0 L MCV 83 MCH 26.8 L MCHC 32.5 RDW 16.0 H Plt Count 293 Seg Neutrophils % 64.7 Lymphocytes % 21.9 Monocytes % 10.9 Eosinophils % 2.0 Basophils % 0.5 Absolute Neutrophils 8.0 Absolute Lymphocytes 2.7 Absolute Monocytes 1.3 Absolute Eosinophils 0.2 Absolute Basophils 0.1 Sodium 133.9 L Potassium 3.2 L Chloride 100 Carbon Dioxide 26 Anion Gap 8 BUN 15 Creatinine 0.73 Est GFR ( Amer) > 60 Est GFR (Non-Af Amer) > 60 Glucose 96 Calcium 8.0 L Magnesium 1.7 Blood Type A POSITIVE Antibody Screen NEGATIVE Impressions: Hip/Pelvis X-Ray 02/27/17 09:50 IMPRESSION: Comminuted fracture of the right proximal femur. Chest X-Ray 02/27/17 11:02 IMPRESSION: NO ACUTE RADIOGRAPHIC FINDING IN THE CHEST. Assessment & Plan - Diagnosis (1) Closed right hip fracture Qualifiers: Encounter type: initial encounter Qualified Code(s): S72.001A - Fracture of unspecified part of neck of right femur, initial encounter for closed fracture Is this a current diagnosis for this admission?: Yes Plan: Patient found to have a comminuted fracture of the proximal right femur. Hip arthroplasty remains in position however the distal portion of the medullary component is no longer within the bone. Concern for osteoporosis. Will check calcium and vitamin D levels. Patient already on vitamin D and calcium supplementation. Surgery scheduled for Thursday. (2) UTI (urinary tract infection) Plan: Urine with moderate leukocytes esterase. Continue ceftriaxone. Follow culture. (3) Hyponatremia Is this a current diagnosis for this admission?: Yes Plan: Possibly secondary to dehydration versus medications. Continue IV hydration and monitor. Sodium mildly improved. (4) Hypokalemia Is this a current diagnosis for this admission?: Yes Plan: Patient requires more replacement. Patient given 40mEq IV. Magnesium level is normal. (5) Seizure disorder Is this a current diagnosis for this admission?: Yes Plan: Continued on Keppra 1000 mg p.o. twice daily. She is also on seizure precautions. (6) History of CVA (cerebrovascular accident) Is this a current diagnosis for this admission?: Yes Plan: Patient is now bedbound as a result. Patient currently on aspirin and statin. (7) Hypothyroidism Is this a current diagnosis for this admission?: Yes Plan: Continue thyroid replacement. (8) Preoperative clearance Is this a current diagnosis for this admission?: Yes Plan: Patient is requiring preoperative clearance for reconstruction of her right hip arthroplasty which is a intermediate risk surgery. Patient is currently bound therefore she has poor functional capacity. Clinical risk factors are history of diastolic heart failure and CVA. From a cardiac standpoint patient is compensated. She is on low dose beta ese. As for the stroke which occurred years ago, patient is currently on aspirin and statin. Preop EKG was ordered. As patient is bedbound and may have some obstructive pulmonary processes because of this will start incentive spirometry and bronchodilators to maximize lung function. Patients UTI is being treated. Patient remaining medical's conditions are stable. From a medical and cardiac standpoint patient is cleared for surgery. - Time Time Spent with patient: 15-24 minutes Anticipated discharge: Home with Homehealth Within: Other - Inpatient Certification Medical Necessity: Need for Surgery
[2017-02-28] MEDS: LEVALBUTEROL HCL NEB 1.25 MG/3 ML AMPUL NEB SCH (20:20)
[2017-02-28] MEDS: ATORVASTATIN CALCIUM 10 MG TABLET PO SCH (22:09)
[2017-02-28] MEDS: METOPROLOL SUCCINATE 25 MG TAB.SR.24H PO SCH (22:09)
[2017-02-28] MEDS: ZOLPIDEM TARTRATE 5 MG TABLET PO SCH (22:18)
--- NOTE | 2017-02-28 23:09 | EKG REPORT ---
SEVERITY:- ABNORMAL ECG - SINUS TACHYCARDIA BORDERLINE RIGHT AXIS DEVIATION NONSPECIFIC REPOL ABNORMALITY, DIFFUSE LEADS : Confirmed by: Odilia Shirley 28-Feb-2017 23:09:05
[2017-03-01] MEDS: HYDROMORPHONE HCL INJ/PF 2 MG/ML AMPULE IV PRN ×4 (03:38→20:45)
[2017-03-01] MEDS: PREGABALIN 25 MG CAPSULE PO SCH ×3 (06:07→22:07)
[2017-03-01] MEDS: LEVOTHYROXINE SODIUM 0.075 MG TABLET PO SCH (06:08)
[2017-03-01] MEDS: LANSOPRAZOLE 30 MG TAB.RAP.DR PO SCH (06:08)
[2017-03-01] MEDS: LEVOTHYROXINE SODIUM 0.1 MG TABLET PO SCH (06:08)
[2017-03-01] MEDS: BACLOFEN 10 MG TABLET PO PRN (06:37)
[2017-03-01 06:39] LABS: ABSOLUTE BASOPHILS # (AUTO) 0.1 10^3/uL (0.0-0.2); ABSOLUTE EOSINOPHILS # (AUTO) 0.5 10^3/uL (0.0-0.6); ABSOLUTE LYMPHOCYTES (AUTO) 1.1 10^3/uL (0.5-4.7); ABSOLUTE MONOCYTES (AUTO) 0.8 10^3/uL (0.1-1.4); ABSOLUTE NEUT (AUTO) 15.2 10^3/uL (1.7-8.2); BASOPHILS % (AUTO) 0.3 % (0-2); HEMATOCRIT 32.4 % (36.0-47.0); HEMOGLOBIN 10.7 g/dL (12.0-15.5); HGB HCT DIFFERENCE -0.3; LYMPHOCYTES % (AUTO) 6.4 % (13-45); MEAN CORPUSCULAR HEMOGLOBIN 27.6 pg (27.0-33.4); MEAN CORPUSCULAR HGB CONC 33.1 g/dL (32.0-36.0); MEAN CORPUSCULAR VOLUME 83 fl (80-97); MONOCYTES % (AUTO) 4.3 % (3-13); RED BLOOD COUNT 3.89 10^6/uL (3.72-5.28); RED CELL DISTRIBUTION WIDTH 16.1 % (11.5-14.0); WHITE BLOOD COUNT 17.6 10^3/uL (4.0-10.5)
[2017-03-01 06:54] LABS: ANION GAP 11 (5-19); BLOOD UREA NITROGEN 15 mg/dL (7-20); CALCIUM 8.3 mg/dL (8.4-10.2); CARBON DIOXIDE 19 mmol/L (22-30); CHLORIDE 101 mmol/L (98-107); CREATININE RESULT 0.71 mg/dL (0.52-1.25); GLUCOSE 117 mg/dL (75-110); MAGNESIUM 1.9 mg/dL (1.6-2.3); POTASSIUM 4.4 mmol/L (3.6-5.0); SODIUM 130.5 mmol/L (137-145)
[2017-03-01] MEDS: LEVALBUTEROL HCL NEB 1.25 MG/3 ML AMPUL NEB SCH ×2 (08:08→20:39)
--- NOTE | 2017-03-01 08:49 | PDOC PROGRESS REPORT ---
Subjective Progress Note for:: 03/01/17 Reason For Visit: RIGHT HIP FRACTURE 61-year-old white female with multiple comorbidities and essentially a pathologic periprosthetic fracture of the right femur secondary to osteoporosis. Physical Exam Vital Signs: Temp Pulse Resp BP Pulse Ox 36.5 C 86 16 104/45 L 98 02/28/17 23:00 03/01/17 02:00 02/28/17 23:00 02/28/17 23:00 02/28/17 23:00 Intake & Output 02/28/17 03/01/17 03/02/17 06:59 06:59 06:59 Intake Total 2782 2932 Output Total 400 500 Balance 2382 2432 Weight 90.6 kg 90.8 kg General appearance: PRESENT: mild distress Head exam: PRESENT: normocephalic Respiratory exam: PRESENT: unlabored Pulses: PRESENT: +1 pedal pulses bilateral Vascular exam: PRESENT: normal capillary refill GI/Abdominal exam: PRESENT: soft Rectal exam: PRESENT: deferred Extremities exam: PRESENT: other - Right lower extremity flexed and internally rotated. Neurological exam: PRESENT: alert, awake, oriented to person, oriented to place , oriented to time, oriented to situation. ABSENT: motor sensory deficit Psychiatric exam: PRESENT: appropriate affect, normal mood. ABSENT: homicidal ideation, suicidal ideation Skin exam: PRESENT: dry, intact, warm. ABSENT: cyanosis, rash Results Laboratory Results: 03/01/17 06:28 03/01/17 06:28 03/01/17 03/01/17 03/01/17 06:28 06:28 06:28 WBC 17.6 H RBC 3.89 Hgb 10.7 L Hct 32.4 L MCV 83 MCH 27.6 MCHC 33.1 RDW 16.1 H Plt Count 305 Seg Neutrophils % 86.0 H Lymphocytes % 6.4 L Monocytes % 4.3 Eosinophils % 3.0 Basophils % 0.3 Absolute Neutrophils 15.2 H Absolute Lymphocytes 1.1 Absolute Monocytes 0.8 Absolute Eosinophils 0.5 Absolute Basophils 0.1 Sodium 130.5 L Potassium 4.4 Chloride 101 Carbon Dioxide 19 L Anion Gap 11 BUN 15 Creatinine 0.71 Est GFR ( Amer) > 60 Est GFR (Non-Af Amer) > 60 Glucose 117 H Calcium 8.3 L Ionized Calcium [place] Magnesium 1.9 TSH Cancelled Free T4 Cancelled 03/01/17 06:28 WBC RBC Hgb Hct MCV MCH MCHC RDW Plt Count Seg Neutrophils % Lymphocytes % Monocytes % Eosinophils % Basophils % Absolute Neutrophils Absolute Lymphocytes Absolute Monocytes Absolute Eosinophils Absolute Basophils Sodium Potassium Chloride Carbon Dioxide Anion Gap BUN Creatinine Est GFR ( Amer) Est GFR (Non-Af Amer) Glucose Calcium Ionized Calcium [place] 1.16 Magnesium TSH Free T4 Impressions: Hip/Pelvis X-Ray 02/27/17 09:50 IMPRESSION: Comminuted fracture of the right proximal femur. Chest X-Ray 02/27/17 11:02 IMPRESSION: NO ACUTE RADIOGRAPHIC FINDING IN THE CHEST. Status: Imported from PACS Assessment & Plan - Diagnosis (1) Closed right hip fracture Qualifiers: Encounter type: initial encounter Qualified Code(s): S72.001A - Fracture of unspecified part of neck of right femur, initial encounter for closed fracture Is this a current diagnosis for this admission?: Yes Plan: Plan for an open reduction internal fixation right femur fracture tomorrow under choice anesthesia. Dr. Rodas aware and hypokalemia is being addressed by the hospitalist service. - Time Time Spent with patient: 15-24 minutes Anticipated discharge: Other Within: Other
[2017-03-01] MEDS: LEVETIRACETAM 500 MG TABLET PO SCH ×2 (09:14→22:06)
[2017-03-01] MEDS: LETROZOLE 2.5 MG TABLET PO SCH (09:14)
[2017-03-01] MEDS: METOPROLOL SUCCINATE 25 MG TAB.SR.24H PO SCH ×2 (09:14→22:07)
[2017-03-01] MEDS: DOCUSATE SODIUM 100 MG CAPSULE PO SCH ×2 (09:14→17:08)
[2017-03-01] MEDS: LIDOCAINE 5% (700 MG) TRANSDERMAL ADH..PATCH TP SCH (09:14)
[2017-03-01] MEDS: CALCIUM CARBONATE 500 MG TABLET PO SCH (09:15)
[2017-03-01] MEDS: ASPIRIN 81 MG TABLET, CHEWABLE PO SCH (09:15)
[2017-03-01] MEDS: QUETIAPINE FUMARATE 25 MG TABLET PO SCH ×2 (09:15→17:09)
[2017-03-01] MEDS: CEFTRIAXONE 1 GM/D5W RTU 1 GM/50 ML RTUPB IV SCH (09:17)
[2017-03-01 12:25] LABS: THYROID STIMULATING HORMONE 1.17 uIU/mL (0.47-4.68)
[2017-03-01] MEDS: MORPHINE SULFATE IR 30 MG TABLET PO PRN ×2 (13:57→23:18)
[2017-03-01] MEDS ORDERED: SODIUM CHLORIDE 1 GM TABLET PO ONE (15:00)
[2017-03-01] MEDS: ZOLPIDEM TARTRATE 5 MG TABLET PO SCH (22:07)
[2017-03-01] MEDS: ATORVASTATIN CALCIUM 10 MG TABLET PO SCH (22:07)
[2017-03-01] MEDS: SODIUM CHLORIDE 1 GM TABLET PO SCH (22:07)
[2017-03-01] MEDS ORDERED: LORAZEPAM INJ 2 MG/1 ML VIAL ONE (23:34)
[2017-03-02] MEDS ORDERED: RINGERS SOLUTION,LACTATED 1,000 ML IV PRN (00:01)
[2017-03-02] MEDS ORDERED: HYDROMORPHONE HCL INJ/PF 2 MG/ML AMPULE ONE ×2 (00:28→09:18)
[2017-03-02] MEDS ORDERED: HYDROMORPHONE HCL INJ/PF 2 MG/ML AMPULE IV ONE (03:00)
[2017-03-02] MEDS ORDERED: TRANEXAMIC ACID INJ/PF 1,000 MG/10 ML SDV IV PRN (05:00)
[2017-03-02] MEDS ORDERED: VANCOMYCIN HCL 1,000 MG in DEXTROSE 5%-WATER 250 ML IV PRN (05:00)
[2017-03-02] MEDS: SODIUM CHLORIDE 1 GM TABLET PO SCH ×2 (05:51→16:03)
[2017-03-02] MEDS: LANSOPRAZOLE 30 MG TAB.RAP.DR PO SCH (05:51)
[2017-03-02] MEDS: LEVOTHYROXINE SODIUM 0.1 MG TABLET PO SCH (05:51)
[2017-03-02] MEDS: LEVOTHYROXINE SODIUM 0.075 MG TABLET PO SCH (05:51)
[2017-03-02] MEDS: PREGABALIN 25 MG CAPSULE PO SCH (05:51)
[2017-03-02] MEDS: HYDROMORPHONE HCL INJ/PF 2 MG/ML AMPULE IV PRN (08:15)
[2017-03-02] MEDS: LEVALBUTEROL HCL NEB 1.25 MG/3 ML AMPUL NEB SCH ×2 (08:45→20:34)
[2017-03-02] MEDS ORDERED: EPHEDRINE SULFATE INJ 50 MG/1 ML AMPULE ONE (09:18)
[2017-03-02] MEDS ORDERED: FENTANYL CITRATE INJ/PF 100 MCG/2 ML AMPUL ONE ×2 (09:18)
[2017-03-02] MEDS ORDERED: MIDAZOLAM 2 MG/2 ML INJ ONE (09:18)
[2017-03-02] MEDS ORDERED: PROPOFOL INJ 200 MG/20 ML VIAL IV ONE (09:19)
[2017-03-02] MEDS ORDERED: ONDANSETRON HCL INJ/PF 4 MG/2 ML SDV ONE (09:19)
[2017-03-02] MEDS ORDERED: THROMBIN (BOVINE) 5000 UNIT EPITAXIS KIT ONE (09:21)
[2017-03-02] MEDS ORDERED: BUPIVACAINE INJ/PF LIPOSOME/PF 266 MG/20 ML SDV ONE (09:21)
[2017-03-02] MEDS ORDERED: THROMBIN (BOVINE) TOPICAL 20000 UNIT VIAL ONE (09:21)
[2017-03-02] MEDS: ASPIRIN 81 MG TABLET, CHEWABLE PO SCH (09:51)
[2017-03-02] MEDS: DOCUSATE SODIUM 100 MG CAPSULE PO SCH ×2 (09:51→17:55)
[2017-03-02] MEDS: CALCIUM CARBONATE 500 MG TABLET PO SCH (09:51)
[2017-03-02] MEDS ORDERED: VANCOMYCIN HCL INJ 1000 MG VIAL ONE (09:56)
[2017-03-02] MEDS ORDERED: TRANEXAMIC ACID INJ/PF 1,000 MG/10 ML SDV IV ONE ×2 (10:09→13:45)
[2017-03-02] MEDS ORDERED: KETAMINE HCL INJ 500 MG/10 ML VIAL ONE (10:14)
[2017-03-02] MEDS ORDERED: EPINEPHRINE INJ/PF 1 MG/1 ML AMPULE ONE (10:18)
--- NOTE | 2017-03-02 12:10 | Operative Report ---
Operative Report DATE OF SURGERY: 03/02/17 PREOPERATIVE DIAGNOSIS: Right periprosthetic femur fracture OPERATION: Open reduction internal fixation right periprosthetic femur fracture SURGEON: LESLIE ONEILL 1ST MAINTENANCE SPECIALIST: ABA SMITH ANESTHESIA: Spinal ESTIMATED BLOOD LOSS: 750 PROCEDURE: With the patient in a semi-left lateral decubitus position optimum table the right lower extremity hunker prepped and draped in sterile fashion. A longitudinal incision was made beginning with the distal aspect of the previous total hip incision and extending distally to the distal third of the femur. Sharp dissection was carried incision through the iliotibial band. The vastus lateralis was then retracted anteriorly and divided at its insertion into the intermuscular septum. The underlying femur fracture is identified. It is highly comminuted. A decision was made to apply a lateral plate and used cables proximally. In anticipation using screws distally, the intramedullary space is filled with polymethylmethacrylate containing tobramycin. Subsequently a [place] stainless steel 9 hole plate is applied distally with 4 screws. The fracture was then reduced to a reasonable extent. The comminution and the fact that there is not indicating bone from the distal fragment to the proximal fragment makes the reduction nonanatomic. This probably at least 2-3 inch length shortening that is excepted. The remainder the construct was then fixed using cables. The reduction in the construct was then assessed using fluoroscopy and felt to be adequate. The wound is irrigated. Hemostasis obtained with electrocautery. Is closed in layers with interrupted Vicryl followed by emir. Sterile compressive dressing was applied and the patient' s return to recovery in satisfactory position.
[2017-03-02] MEDS ORDERED: ONDANSETRON 4 MG TAB.RAPDIS PO PRN ×2 (12:22→15:00)
[2017-03-02] MEDS ORDERED: OXYCODONE HCL IR 5 MG TABLET PO PRN (12:22)
[2017-03-02] MEDS ORDERED: MORPHINE SULFATE 10 MG/ML INJ IM PRN (12:22)
[2017-03-02] MEDS ORDERED: MORPHINE SULFATE 10 MG/ML INJ IV PRN ×3 (12:22)
[2017-03-02] MEDS ORDERED: ONDANSETRON HCL INJ/PF 4 MG/2 ML SDV IV PRN (12:30)
[2017-03-02] MEDS ORDERED: MORPHINE SULFATE IR 30 MG TABLET PO PRN (12:30)
[2017-03-02] MEDS ORDERED: KETOROLAC TROMETHAMINE INJ/PF 30 MG/1 ML SDV IV ONE ×2 (15:39→18:15)
--- NOTE | 2017-03-02 15:39 | RADIOLOGY REPORT (SQ) ---
EXAM DESCRIPTION: NO CHG FLUORO; FEMUR RIGHT COMPLETED DATE/TIME: 03/02/2017 2:20 pm; 03/02/2017 2:21 pm REASON FOR STUDY: ORIF RT FEMUR COMPARISON: None. FLUOROSCOPY TIME: 0.4 minutes Total of 4 images saved to PACS. TECHNIQUE: Intra-operative images acquired during surgical procedure to evaluate progress. NUMBER OF IMAGES: Total of 4 LIMITATIONS: None. FINDINGS: Bipolar hip arthroplasty with plate and screws and cerclage wire proximal femur. IMPRESSION: IMAGE(S) OBTAINED DURING PROCEDURE. COMMENT: Quality ID 145: Final reports for procedures using fluoroscopy that document radiation exp osure indices, or exposure time and number of fluorographic images (if radiation exposure indices are not available) Please consult full operative report of the attending physician for description of the procedure. TECHNICAL DOCUMENTATION: JOB ID: [id number] [employer]- All Rights Reserved
--- NOTE | 2017-03-02 15:39 | RADIOLOGY REPORT (SQ) ---
EXAM DESCRIPTION: NO CHG FLUORO; FEMUR RIGHT COMPLETED DATE/TIME: 03/02/2017 2:20 pm; 03/02/2017 2:21 pm REASON FOR STUDY: ORIF RT FEMUR COMPARISON: None. FLUOROSCOPY TIME: 0.4 minutes Total of 4 images saved to PACS. TECHNIQUE: Intra-operative images acquired during surgical procedure to evaluate progress. NUMBER OF IMAGES: Total of 4 LIMITATIONS: None. FINDINGS: Bipolar hip arthroplasty with plate and screws and cerclage wire proximal femur. IMPRESSION: IMAGE(S) OBTAINED DURING PROCEDURE. COMMENT: Quality ID [id number]: Final reports for procedures using fluoroscopy that document radiation exp osure indices, or exposure time and number of fluorographic images (if radiation exposure indices are not available) Please consult full operative report of the attending physician for description of the procedure. TECHNICAL DOCUMENTATION: JOB ID: [id number] [employer]- All Rights Reserved
[2017-03-02] MEDS: LETROZOLE 2.5 MG TABLET PO SCH (15:43)
[2017-03-02] MEDS: CEFTRIAXONE 1 GM/D5W RTU 1 GM/50 ML RTUPB IV SCH (15:43)
[2017-03-02] MEDS ORDERED: KETOROLAC TROMETHAMINE INJ/PF 30 MG/1 ML SDV ONE (15:47)
[2017-03-02] MEDS: IBUPROFEN 800 MG in NORMAL SALINE 250 ML IV SCH ×2 (15:59→23:06)
[2017-03-02] MEDS: QUETIAPINE FUMARATE 25 MG TABLET PO SCH ×2 (16:03→17:55)
[2017-03-02] MEDS: METOPROLOL SUCCINATE 25 MG TAB.SR.24H PO SCH (16:03)
[2017-03-02] MEDS: LEVETIRACETAM 500 MG TABLET PO SCH (16:03)
[2017-03-02] MEDS ORDERED: FENTANYL 50 MCG/HR PATCH.TD72 TD ONE (16:30)
[2017-03-02] MEDS: LIDOCAINE 5% (700 MG) TRANSDERMAL ADH..PATCH TP SCH (17:20)
--- NOTE | 2017-03-02 17:53 | PDOC PROGRESS REPORT ---
Subjective Progress Note for:: 03/02/17 Subjective:: Pt states that she is having severe pain in her leg. Pt was seen after her surgery. Nursing reported that pt's blood pressure has been on the low side. Reason For Visit: RIGHT HIP FRACTURE Physical Exam Vital Signs: Temp Pulse Resp BP Pulse Ox 98.7 F 121 H 12 129/76 H 99 03/02/17 16:30 03/02/17 16:30 03/02/17 16:30 03/02/17 16:30 03/02/17 16:30 Intake & Output 03/01/17 03/02/17 03/03/17 06:59 06:59 06:59 Intake Total 2932 3402 5410 Output Total 500 2600 2090 Balance 2432 802 3320 Weight 90.8 kg 94.9 kg General appearance: PRESENT: mild distress, morbidly obese, well-developed, well -nourished Head exam: PRESENT: atraumatic, normocephalic Eye exam: PRESENT: conjunctiva pink, EOMI. ABSENT: scleral icterus Ear exam: PRESENT: bleeding Mouth exam: PRESENT: moist, tongue midline Neck exam: ABSENT: carotid bruit, JVD, lymphadenopathy, thyromegaly Respiratory exam: PRESENT: other - +diminished breath sound at bases. ABSENT: rales, rhonchi, wheezes Cardiovascular exam: PRESENT: RRR. ABSENT: diastolic murmur, rubs, systolic murmur Pulses: PRESENT: normal dorsalis pedis pul Vascular exam: PRESENT: normal capillary refill GI/Abdominal exam: PRESENT: normal bowel sounds, soft. ABSENT: distended, guarding, mass, organolmegaly, rebound, tenderness Rectal exam: PRESENT: deferred Neurological exam: PRESENT: alert, altered, oriented to person Psychiatric exam: PRESENT: agitated, other - yelling in room Skin exam: PRESENT: dry, warm Results Laboratory Results: 03/01/17 06:28 03/01/17 06:28 02/28/17 06:01 Blood Type A POSITIVE Antibody Screen NEGATIVE 02/27/17 12:41 Wong Catheter Urine Culture - Final Escherichia Coli Impressions: Hip/Pelvis X-Ray 02/27/17 09:50 IMPRESSION: Comminuted fracture of the right proximal femur. Chest X-Ray 02/27/17 11:02 IMPRESSION: NO ACUTE RADIOGRAPHIC FINDING IN THE CHEST. Femur X-Ray 03/02/17 00:00 IMPRESSION: IMAGE(S) OBTAINED DURING PROCEDURE. Fluoroscopy 03/02/17 00:00 IMPRESSION: IMAGE(S) OBTAINED DURING PROCEDURE. Assessment & Plan - Diagnosis (1) Hypotension due to drugs Is this a current diagnosis for this admission?: Yes Plan: Will continue IVF. Not using Opioids due to low blood pressure. (2) Closed right hip fracture Qualifiers: Encounter type: initial encounter Qualified Code(s): S72.001A - Fracture of unspecified part of neck of right femur, initial encounter for closed fracture Is this a current diagnosis for this admission?: Yes Plan: S/P repair: Per Ortho (3) HTN (hypertension) Qualifiers: Hypertension type: unspecified Qualified Code(s): I10 - Essential (primary ) hypertension Is this a current diagnosis for this admission?: Yes (4) Hyponatremia Is this a current diagnosis for this admission?: Yes Plan: Sodium Chloride TID. Could be due to Psych medications. (5) UTI (urinary tract infection) Is this a current diagnosis for this admission?: Yes Plan: E. Coli Acute Cystitis: Will continue Rocephin. (6) Hypokalemia Is this a current diagnosis for this admission?: Yes Plan: Resolved. (7) DVT prophylaxis Is this a current diagnosis for this admission?: Yes Plan: SCDs - Time Time Spent with patient: 15-24 minutes
[2017-03-02] MEDS: KETOROLAC TROMETHAMINE INJ/PF 30 MG/1 ML SDV IV SCH (17:55)
[2017-03-02] MEDS: PREGABALIN 75 MG CAPSULE PO SCH (17:55)
[2017-03-02] MEDS ORDERED: ACETAMINOPHEN 100 ML IV ONE (18:23)
[2017-03-02] MEDS: PHARMACY COMMUNICATION ORDER MC SCH (23:08)
[2017-03-03] MEDS: LEVETIRACETAM 500 MG TABLET PO SCH ×3 (01:17→21:26)
[2017-03-03] MEDS: SODIUM CHLORIDE 1 GM TABLET PO SCH ×4 (01:18→21:27)
[2017-03-03] MEDS: ATORVASTATIN CALCIUM 10 MG TABLET PO SCH ×2 (01:18→21:26)
[2017-03-03] MEDS: OXYCODONE HCL SR 10 MG TABLET PO SCH ×3 (01:19→21:26)
[2017-03-03] MEDS: ZOLPIDEM TARTRATE 5 MG TABLET PO SCH ×2 (01:19→21:26)
[2017-03-03] MEDS: KETOROLAC TROMETHAMINE INJ/PF 30 MG/1 ML SDV IV SCH ×4 (05:23→20:09)
[2017-03-03] MEDS: LEVOTHYROXINE SODIUM 0.075 MG TABLET PO SCH (05:28)
[2017-03-03] MEDS: LEVOTHYROXINE SODIUM 0.1 MG TABLET PO SCH (05:28)
[2017-03-03] MEDS: LANSOPRAZOLE 30 MG TAB.RAP.DR PO SCH (05:29)
[2017-03-03] MEDS ORDERED: LANSOPRAZOLE 30 MG TAB.RAP.DR PO SCH (06:00)
[2017-03-03] MEDS: IBUPROFEN 800 MG in NORMAL SALINE 250 ML IV SCH ×3 (06:31→21:28)
--- NOTE | 2017-03-03 06:52 | PDOC PROGRESS REPORT ---
Subjective Progress Note for:: 03/03/17 Subjective:: 61-year-old white female one day status post open reduction internal fixation for periprosthetic femoral fracture. Patient awake this morning however is nonresponsive when asked questions. However when bedsheets were removed to examine patient's wound she screamed multiple times "ouch!". There is evidence of drainage from the wound site. Reason For Visit: RIGHT HIP FRACTURE Physical Exam Vital Signs: Temp Pulse Resp BP Pulse Ox 36.4 C 108 H 14 105/50 L 95 03/03/17 00:00 03/03/17 02:00 03/03/17 00:00 03/03/17 01:08 03/03/17 01:14 Intake & Output 03/01/17 03/02/17 03/03/17 06:59 06:59 06:59 Intake Total 2932 3402 7210 Output Total 500 2600 2090 Balance 2432 802 5120 Weight 90.8 kg 94.9 kg General appearance: PRESENT: mild distress Head exam: PRESENT: atraumatic, normocephalic Pulses: PRESENT: normal dorsalis pedis pul, +2 pedal pulses bilateral Additional comments: Patient lying in left lateral decubitus position in hospital bed this morning. Her OpSite dressing and reinforcement dressings are saturated with serosanguineous drainage. These dressings are left in place as when bedsheets were removed to examine patient she cried out in pain. Nursing staff was informed and they will change these dressings. She is apparently tender to palpation, mildly edematous about the wound site. Her leg lengths are equal and her distal neurovascular exam is intact. Additional comments: Patient is nonambulatory and remains bedridden. Based on notes provided it does not appear that she has been seen by physical therapy since her surgery yesterday. Would recommend consult from physical therapy to assess needs to improve strength range of motion and work towards ambulation on right lower extremity. Neurological exam: PRESENT: alert, awake, oriented to person, oriented to place , oriented to time, oriented to situation, CN II-XII grossly intact. ABSENT: motor sensory deficit Psychiatric exam: PRESENT: agitated Skin exam: PRESENT: dry, intact, warm. ABSENT: cyanosis, rash Results Laboratory Results: 03/01/17 06:28 03/01/17 06:28 02/28/17 06:01 Blood Type A POSITIVE Antibody Screen NEGATIVE 02/27/17 12:41 Wong Catheter Urine Culture - Final Escherichia Coli Impressions: Hip/Pelvis X-Ray 02/27/17 09:50 IMPRESSION: Comminuted fracture of the right proximal femur. Chest X-Ray 02/27/17 11:02 IMPRESSION: NO ACUTE RADIOGRAPHIC FINDING IN THE CHEST. Femur X-Ray 03/02/17 00:00 IMPRESSION: IMAGE(S) OBTAINED DURING PROCEDURE. Fluoroscopy 03/02/17 00:00 IMPRESSION: IMAGE(S) OBTAINED DURING PROCEDURE. Assessment & Plan - Diagnosis (1) Sana-prosthetic femoral shaft fracture Is this a current diagnosis for this admission?: Yes - Plan Summary Plan Summary: 61-year-old white female one day status post open reduction internal fixation for sana-prosthetic femoral shaft fracture of the right femur. Patient is evidently in pain and apparently tender to palpation. She is nonambulatory and has not been seen by physical therapy. Would recommend consult from physical therapy to assess needs and establish goals to work towards ambulation. Her OpSite dressing and reinforced dressings are saturated with serosanguineous drainage. Was recommended to be changed by nursing staff. Due to copious amounts of drainage infection panel labs were ordered this morning. Pending these results patient may be placed on antibiotic therapy.
[2017-03-03] MEDS: LEVALBUTEROL HCL NEB 1.25 MG/3 ML AMPUL NEB SCH ×2 (08:25→20:13)
[2017-03-03 08:44] LABS: ABSOLUTE EOSINOPHILS # (AUTO) 0.5 10^3/uL (0.0-0.6); ABSOLUTE LYMPHOCYTES (AUTO) 0.6 10^3/uL (0.5-4.7); ABSOLUTE MONOCYTES (AUTO) 0.7 10^3/uL (0.1-1.4); ABSOLUTE NEUT (AUTO) 7.9 10^3/uL (1.7-8.2); BASOPHILS % (AUTO) 0.3 % (0-2); EOSINOPHILS % (AUTO) 4.7 % (0-6); HEMATOCRIT 27.2 % (36.0-47.0); HEMOGLOBIN 9.3 g/dL (12.0-15.5); HGB HCT DIFFERENCE 0.7; LYMPHOCYTES % (AUTO) 6.5 % (13-45); MEAN CORPUSCULAR HEMOGLOBIN 28.4 pg (27.0-33.4); MEAN CORPUSCULAR HGB CONC 34.1 g/dL (32.0-36.0); MEAN CORPUSCULAR VOLUME 83 fl (80-97); MONOCYTES % (AUTO) 6.8 % (3-13); RED BLOOD COUNT 3.26 10^6/uL (3.72-5.28); RED CELL DISTRIBUTION WIDTH 15.3 % (11.5-14.0); SEGMENTED NEUTROPHILS % (AUTO) 81.7 % (42-78); WHITE BLOOD COUNT 9.6 10^3/uL (4.0-10.5)
[2017-03-03 08:50] LABS: ALANINE AMINOTRANSFERASE 59 U/L (9-52); ALBUMIN 2.1 g/dL (3.5-5.0); ALKALINE PHOSPHATASE 177 U/L (38-126); ANION GAP 6 (5-19); ASPARTATE AMINO TRANSFERASE 66 U/L (14-36); BILIRUBIN,DIRECT 0.4 mg/dL (0.0-0.4); BILIRUBIN,TOTAL 1.1 mg/dL (0.2-1.3); BLOOD UREA NITROGEN 6 mg/dL (7-20); CALCIUM 8.4 mg/dL (8.4-10.2); CARBON DIOXIDE 25 mmol/L (22-30); CHLORIDE 105 mmol/L (98-107); CREATININE RESULT 0.48 mg/dL (0.52-1.25); GLUCOSE 95 mg/dL (75-110); SODIUM 136.1 mmol/L (137-145); TOTAL PROTEIN 4.3 g/dL (6.3-8.2)
[2017-03-03] MEDS: CALCIUM CARBONATE 500 MG TABLET PO SCH (09:51)
[2017-03-03] MEDS: PREGABALIN 75 MG CAPSULE PO SCH ×2 (09:51→17:42)
[2017-03-03] MEDS: QUETIAPINE FUMARATE 25 MG TABLET PO SCH ×2 (09:51→17:42)
[2017-03-03] MEDS: DOCUSATE SODIUM 100 MG CAPSULE PO SCH ×2 (09:52→17:42)
[2017-03-03] MEDS: CEFTRIAXONE 1 GM/D5W RTU 1 GM/50 ML RTUPB IV SCH (09:52)
[2017-03-03] MEDS: ASPIRIN 81 MG TABLET, CHEWABLE PO SCH (09:52)
[2017-03-03] MEDS: LIDOCAINE 5% (700 MG) TRANSDERMAL ADH..PATCH TP SCH (09:53)
[2017-03-03] MEDS: LETROZOLE 2.5 MG TABLET PO SCH (09:53)
[2017-03-03] MEDS ORDERED: HALOPERIDOL 2 MG TABLET PO ONE (11:30)
[2017-03-03] MEDS: HYDROMORPHONE HCL INJ/PF 2 MG/ML AMPULE IV PRN ×2 (13:58→18:36)
--- NOTE | 2017-03-03 14:42 | PDOC PROGRESS REPORT ---
Subjective Progress Note for:: 03/03/17 Subjective:: Pt requesting for spirit to drank. Pt states that she is in pain. Reason For Visit: RIGHT HIP FRACTURE Physical Exam Vital Signs: Temp Pulse Resp BP Pulse Ox 98.6 F 92 18 126/46 H 98 03/03/17 11:36 03/03/17 11:36 03/03/17 11:36 03/03/17 11:36 03/03/17 11:36 Intake & Output 03/02/17 03/03/17 03/04/17 06:59 06:59 06:59 Intake Total 3402 9185 Output Total 2600 4440 Balance 802 4745 Weight 94.9 kg 97 kg General appearance: PRESENT: no acute distress, well-developed, well-nourished Head exam: PRESENT: atraumatic, normocephalic Eye exam: PRESENT: conjunctiva pink, EOMI. ABSENT: scleral icterus Ear exam: PRESENT: normal external ear exam Mouth exam: PRESENT: moist, tongue midline Neck exam: ABSENT: carotid bruit, JVD, lymphadenopathy, thyromegaly Respiratory exam: PRESENT: clear to auscultation michael. ABSENT: rales, rhonchi, wheezes Cardiovascular exam: PRESENT: RRR. ABSENT: diastolic murmur, rubs, systolic murmur Pulses: PRESENT: normal dorsalis pedis pul Vascular exam: PRESENT: normal capillary refill GI/Abdominal exam: PRESENT: normal bowel sounds, soft. ABSENT: distended, guarding, mass, organolmegaly, rebound, tenderness Rectal exam: PRESENT: deferred Extremities exam: PRESENT: pedal edema. ABSENT: calf tenderness Neurological exam: PRESENT: alert, altered, awake, oriented to person, oriented to place Psychiatric exam: PRESENT: flat affect Skin exam: PRESENT: dry, intact, warm. ABSENT: cyanosis, rash Results Laboratory Results: 03/03/17 08:22 03/03/17 08:22 03/03/17 03/03/17 08:22 08:22 WBC 9.6 RBC 3.26 L Hgb 9.3 L Hct 27.2 L MCV 83 MCH 28.4 MCHC 34.1 RDW 15.3 H Plt Count 256 Seg Neutrophils % 81.7 H Lymphocytes % 6.5 L Monocytes % 6.8 Eosinophils % 4.7 Basophils % 0.3 Absolute Neutrophils 7.9 Absolute Lymphocytes 0.6 Absolute Monocytes 0.7 Absolute Eosinophils 0.5 Absolute Basophils 0.0 Sodium 136.1 L Potassium 4.0 Chloride 105 Carbon Dioxide 25 Anion Gap 6 BUN 6 L Creatinine 0.48 L Est GFR ( Amer) > 60 Est GFR (Non-Af Amer) > 60 Glucose 95 Calcium 8.4 Total Bilirubin 1.1 AST 66 H ALT 59 H Alkaline Phosphatase 177 H Total Protein 4.3 L Albumin 2.1 L 02/27/17 12:41 Wong Catheter Urine Culture - Final Escherichia Coli Impressions: Hip/Pelvis X-Ray 02/27/17 09:50 IMPRESSION: Comminuted fracture of the right proximal femur. Chest X-Ray 02/27/17 11:02 IMPRESSION: NO ACUTE RADIOGRAPHIC FINDING IN THE CHEST. Femur X-Ray 03/02/17 00:00 IMPRESSION: IMAGE(S) OBTAINED DURING PROCEDURE. Fluoroscopy 03/02/17 00:00 IMPRESSION: IMAGE(S) OBTAINED DURING PROCEDURE. Assessment & Plan - Diagnosis (1) Hypotension due to drugs Is this a current diagnosis for this admission?: Yes Plan: Resolved. Will discontinue IVFs. (2) Closed right hip fracture Qualifiers: Encounter type: initial encounter Qualified Code(s): S72.001A - Fracture of unspecified part of neck of right femur, initial encounter for closed fracture Is this a current diagnosis for this admission?: Yes Plan: S/P repair: Per Ortho (3) HTN (hypertension) Qualifiers: Hypertension type: unspecified Qualified Code(s): I10 - Essential (primary ) hypertension Is this a current diagnosis for this admission?: Yes Plan: Will continue to monitor. (4) Hyponatremia Is this a current diagnosis for this admission?: Yes Plan: Sodium Chloride TID. Sodium improving. Could be due to Psych medications. (5) UTI (urinary tract infection) Is this a current diagnosis for this admission?: Yes Plan: E. Coli Acute Cystitis: Will place on Levaquin. (6) Hypokalemia Is this a current diagnosis for this admission?: Yes Plan: Resolved. (7) DVT prophylaxis Is this a current diagnosis for this admission?: Yes Plan: SCDs - Time Time Spent with patient: 15-24 minutes
[2017-03-03] MEDS: AMOXICILLIN TR/POT CLAVULANATE 500-125 MG TAB PO SCH (21:25)
[2017-03-03] MEDS: HEPARIN SOD (PORCINE) 5,000 UNIT/ML 1 ML SYRINGE SUBCUT SCH (21:26)
[2017-03-03] MEDS: PHARMACY COMMUNICATION ORDER MC SCH (21:33)
[2017-03-04] MEDS: HYDROMORPHONE HCL INJ/PF 2 MG/ML AMPULE IV PRN ×3 (01:10→20:52)
[2017-03-04] MEDS: KETOROLAC TROMETHAMINE INJ/PF 30 MG/1 ML SDV IV SCH ×4 (03:09→20:52)
[2017-03-04] MEDS ORDERED: LORAZEPAM INJ 2 MG/1 ML VIAL ONE (04:05)
[2017-03-04] MEDS ORDERED: LORAZEPAM INJ 2 MG/1 ML VIAL IV ONE (04:30)
[2017-03-04] MEDS: HEPARIN SOD (PORCINE) 5,000 UNIT/ML 1 ML SYRINGE SUBCUT SCH ×3 (06:31→23:58)
[2017-03-04] MEDS: LANSOPRAZOLE 30 MG TAB.RAP.DR PO SCH (06:32)
[2017-03-04] MEDS: LEVOTHYROXINE SODIUM 0.075 MG TABLET PO SCH (06:32)
[2017-03-04] MEDS: AMOXICILLIN TR/POT CLAVULANATE 500-125 MG TAB PO SCH ×3 (06:32→23:53)
[2017-03-04] MEDS: LEVOTHYROXINE SODIUM 0.1 MG TABLET PO SCH (06:32)
[2017-03-04] MEDS: SODIUM CHLORIDE 1 GM TABLET PO SCH ×3 (06:38→23:52)
[2017-03-04] MEDS: IBUPROFEN 800 MG in NORMAL SALINE 250 ML IV SCH (06:39)
--- NOTE | 2017-03-04 07:04 | PDOC PROGRESS REPORT ---
Subjective Progress Note for:: 03/04/17 Subjective:: Patient with overall restless overnight, multiple nurse calls, and continuous calling out verbally Reason For Visit: RIGHT HIP FRACTURE Physical Exam Vital Signs: Temp Pulse Resp BP Pulse Ox 36.6 C 129 H 18 124/53 L 97 03/04/17 04:00 03/04/17 04:00 03/04/17 04:00 03/04/17 04:00 03/04/17 04:00 Intake & Output 03/03/17 03/04/17 03/05/17 06:59 06:59 06:59 Intake Total 9185 1487 Output Total 4440 1500 Balance 4745 -13 Weight 97 kg General appearance: PRESENT: no acute distress, severe distress, other - Patient seems comfortable when I walk in the room. As soon as I walk in the room and address the patient verbally there is screams of pain. This is before even touch the bending. Head exam: PRESENT: normocephalic Respiratory exam: PRESENT: unlabored Cardiovascular exam: PRESENT: RRR Pulses: PRESENT: +1 pedal pulses bilateral Rectal exam: PRESENT: deferred Musculoskeletal exam: PRESENT: other - Patient in a position in bed with both knees and both hips flexed lying slightly on her left side. Right thigh dressing demonstrates some drainage at the uppermost portion. Neurological exam: PRESENT: alert Skin exam: PRESENT: dry, intact, warm. ABSENT: cyanosis, rash Results Laboratory Results: 03/03/17 08:22 03/03/17 08:22 03/03/17 03/03/17 08:22 08:22 WBC 9.6 RBC 3.26 L Hgb 9.3 L Hct 27.2 L MCV 83 MCH 28.4 MCHC 34.1 RDW 15.3 H Plt Count 256 Seg Neutrophils % 81.7 H Lymphocytes % 6.5 L Monocytes % 6.8 Eosinophils % 4.7 Basophils % 0.3 Absolute Neutrophils 7.9 Absolute Lymphocytes 0.6 Absolute Monocytes 0.7 Absolute Eosinophils 0.5 Absolute Basophils 0.0 Sodium 136.1 L Potassium 4.0 Chloride 105 Carbon Dioxide 25 Anion Gap 6 BUN 6 L Creatinine 0.48 L Est GFR ( Amer) > 60 Est GFR (Non-Af Amer) > 60 Glucose 95 Calcium 8.4 Total Bilirubin 1.1 AST 66 H ALT 59 H Alkaline Phosphatase 177 H Total Protein 4.3 L Albumin 2.1 L Impressions: Hip/Pelvis X-Ray 02/27/17 09:50 IMPRESSION: Comminuted fracture of the right proximal femur. Chest X-Ray 02/27/17 11:02 IMPRESSION: NO ACUTE RADIOGRAPHIC FINDING IN THE CHEST. Femur X-Ray 03/02/17 00:00 IMPRESSION: IMAGE(S) OBTAINED DURING PROCEDURE. Fluoroscopy 03/02/17 00:00 IMPRESSION: IMAGE(S) OBTAINED DURING PROCEDURE. Status: Imported from PACS Assessment & Plan - Diagnosis (1) Closed right hip fracture Qualifiers: Encounter type: initial encounter Qualified Code(s): S72.001A - Fracture of unspecified part of neck of right femur, initial encounter for closed fracture Is this a current diagnosis for this admission?: Yes Plan: 61-year-old white female postop day 2 from an open reduction internal fixation of her right femoral periprosthetic fracture. Postoperative course has been notable for anxiety, restlessness, presumed pain which is unrelenting. At this point the patient's pain response precludes any attempts to to mobilize her from bed to chair. Dressing can be changed on a as needed basis. [facility] facility placement will likely be necessary. - Time Time Spent with patient: 15-24 minutes Anticipated discharge: SNF Within: when bed available
[2017-03-04] MEDS: LEVALBUTEROL HCL NEB 1.25 MG/3 ML AMPUL NEB SCH ×2 (08:38→20:54)
[2017-03-04] MEDS: OXYCODONE HCL SR 10 MG TABLET PO SCH (09:09)
[2017-03-04] MEDS: DOCUSATE SODIUM 100 MG CAPSULE PO SCH ×2 (09:09→23:59)
[2017-03-04] MEDS: LEVETIRACETAM 500 MG TABLET PO SCH ×2 (09:09→23:52)
[2017-03-04] MEDS: ASPIRIN 81 MG TABLET, CHEWABLE PO SCH (09:09)
[2017-03-04] MEDS: CALCIUM CARBONATE 500 MG TABLET PO SCH (09:10)
[2017-03-04] MEDS: PREGABALIN 75 MG CAPSULE PO SCH ×2 (09:10→20:09)
[2017-03-04] MEDS: LETROZOLE 2.5 MG TABLET PO SCH (09:11)
[2017-03-04] MEDS: LIDOCAINE 5% (700 MG) TRANSDERMAL ADH..PATCH TP SCH (09:12)
[2017-03-04] MEDS: QUETIAPINE FUMARATE 25 MG TABLET PO SCH ×2 (11:48→23:52)
[2017-03-04] MEDS ORDERED: FUROSEMIDE INJ/PF 40 MG/4 ML SDV IV ONE (12:09)
--- NOTE | 2017-03-04 12:09 | PDOC PROGRESS REPORT ---
Subjective Progress Note for:: 03/04/17 Subjective:: Nursing state that pt is doing well. Nursing states that pt has been yelling out in pain. Reason For Visit: RIGHT HIP FRACTURE Physical Exam Vital Signs: Temp Pulse Resp BP Pulse Ox 98.3 F 132 H 18 140/58 H 92 03/04/17 08:00 03/04/17 08:38 03/04/17 08:38 03/04/17 08:00 03/04/17 08:38 Intake & Output 03/03/17 03/04/17 03/05/17 06:59 06:59 06:59 Intake Total 9185 2487 Output Total 4440 3700 Balance 4745 -1213 Weight 97 kg 97 kg General appearance: PRESENT: no acute distress, well-developed, well-nourished Head exam: PRESENT: atraumatic, normocephalic Eye exam: PRESENT: conjunctiva pink, EOMI. ABSENT: scleral icterus Ear exam: PRESENT: normal external ear exam Mouth exam: PRESENT: moist, tongue midline Neck exam: ABSENT: carotid bruit, JVD, lymphadenopathy, thyromegaly Respiratory exam: PRESENT: clear to auscultation michael. ABSENT: rales, rhonchi, wheezes Cardiovascular exam: PRESENT: RRR. ABSENT: diastolic murmur, rubs, systolic murmur Pulses: PRESENT: normal dorsalis pedis pul Vascular exam: PRESENT: normal capillary refill GI/Abdominal exam: PRESENT: normal bowel sounds, soft. ABSENT: distended, guarding, mass, organolmegaly, rebound, tenderness Rectal exam: PRESENT: deferred Extremities exam: PRESENT: pedal edema, +2 edema - bilateral lower ext edema.. ABSENT: calf tenderness, clubbing Musculoskeletal exam: PRESENT: other - +Contractures of lower exts Neurological exam: PRESENT: alert, awake, oriented to person, oriented to place , oriented to time, oriented to situation, CN II-XII grossly intact. ABSENT: motor sensory deficit Psychiatric exam: PRESENT: appropriate affect, normal mood. ABSENT: homicidal ideation, suicidal ideation Skin exam: PRESENT: dry, intact, warm, other - +Right thigh with dressing in place.. ABSENT: cyanosis, rash Results Laboratory Results: 03/03/17 08:22 03/03/17 08:22 Impressions: Hip/Pelvis X-Ray 02/27/17 09:50 IMPRESSION: Comminuted fracture of the right proximal femur. Chest X-Ray 02/27/17 11:02 IMPRESSION: NO ACUTE RADIOGRAPHIC FINDING IN THE CHEST. Femur X-Ray 03/02/17 00:00 IMPRESSION: IMAGE(S) OBTAINED DURING PROCEDURE. Fluoroscopy 03/02/17 00:00 IMPRESSION: IMAGE(S) OBTAINED DURING PROCEDURE. Assessment & Plan - Diagnosis (1) Volume overload Qualifiers: Hypervolemia type: transfusion-associated Qualified Code(s): E87.71 - Transfusion associated circulatory overload Is this a current diagnosis for this admission?: Yes Plan: Will give Lasix 40 mg IV X 1 (2) Tachycardia Is this a current diagnosis for this admission?: Yes Plan: Will place on Metoprolol 12. 5 mg (3) Hypotension due to drugs Is this a current diagnosis for this admission?: Yes Plan: Resolved. (4) Closed right hip fracture Qualifiers: Encounter type: initial encounter Qualified Code(s): S72.001A - Fracture of unspecified part of neck of right femur, initial encounter for closed fracture Is this a current diagnosis for this admission?: Yes Plan: S/P repair: Per Ortho (5) HTN (hypertension) Qualifiers: Hypertension type: unspecified Qualified Code(s): I10 - Essential (primary ) hypertension Is this a current diagnosis for this admission?: Yes Plan: Will continue to monitor. (6) Hyponatremia Is this a current diagnosis for this admission?: Yes Plan: Sodium Chloride TID. Resolving. (7) UTI (urinary tract infection) Is this a current diagnosis for this admission?: Yes Plan: E. Coli Acute Cystitis: Augmentin. (8) Hypokalemia Is this a current diagnosis for this admission?: Yes Plan: Resolved. (9) DVT prophylaxis Is this a current diagnosis for this admission?: Yes Plan: SCDs - Time Time Spent with patient: 15-24 minutes Anticipated discharge: Home
[2017-03-04] MEDS: ATORVASTATIN CALCIUM 10 MG TABLET PO SCH (23:53)
[2017-03-04] MEDS: METOPROLOL TARTRATE 25 MG TABLET PO SCH (23:53)
[2017-03-05] MEDS: PHARMACY COMMUNICATION ORDER MC SCH ×2 (00:02→21:13)
[2017-03-05] MEDS: ZOLPIDEM TARTRATE 5 MG TABLET PO SCH ×2 (00:02→23:53)
[2017-03-05] MEDS: KETOROLAC TROMETHAMINE INJ/PF 30 MG/1 ML SDV IV SCH ×4 (03:43→21:05)
[2017-03-05] MEDS: HYDROMORPHONE HCL INJ/PF 2 MG/ML AMPULE IV PRN ×2 (04:27→17:11)
[2017-03-05] MEDS: HEPARIN SOD (PORCINE) 5,000 UNIT/ML 1 ML SYRINGE SUBCUT SCH ×3 (05:53→21:04)
[2017-03-05] MEDS: LEVOTHYROXINE SODIUM 0.075 MG TABLET PO SCH (05:53)
[2017-03-05] MEDS: LEVOTHYROXINE SODIUM 0.1 MG TABLET PO SCH (05:53)
[2017-03-05] MEDS: LANSOPRAZOLE 30 MG TAB.RAP.DR PO SCH (05:53)
[2017-03-05 05:54] LABS: ABSOLUTE EOSINOPHILS # (AUTO) 0.4 10^3/uL (0.0-0.6); ABSOLUTE MONOCYTES (AUTO) 0.8 10^3/uL (0.1-1.4); ABSOLUTE NEUT (AUTO) 7.2 10^3/uL (1.7-8.2); BASOPHILS % (AUTO) 0.4 % (0-2); EOSINOPHILS % (AUTO) 4.5 % (0-6); HEMATOCRIT 22.3 % (36.0-47.0); HGB HCT DIFFERENCE 0.2; LYMPHOCYTES % (AUTO) 10.7 % (13-45); MEAN CORPUSCULAR HEMOGLOBIN 28.1 pg (27.0-33.4); MEAN CORPUSCULAR HGB CONC 33.8 g/dL (32.0-36.0); MEAN CORPUSCULAR VOLUME 83 fl (80-97); MONOCYTES % (AUTO) 8.5 % (3-13); RED BLOOD COUNT 2.68 10^6/uL (3.72-5.28); RED CELL DISTRIBUTION WIDTH 15.8 % (11.5-14.0); SEGMENTED NEUTROPHILS % (AUTO) 75.9 % (42-78); WHITE BLOOD COUNT 9.5 10^3/uL (4.0-10.5)
[2017-03-05] MEDS: SODIUM CHLORIDE 1 GM TABLET PO SCH ×3 (05:54→23:55)
[2017-03-05] MEDS: AMOXICILLIN TR/POT CLAVULANATE 500-125 MG TAB PO SCH ×3 (05:54→21:04)
[2017-03-05 06:15] LABS: BLOOD UREA NITROGEN 6 mg/dL (7-20); CALCIUM 7.9 mg/dL (8.4-10.2); CARBON DIOXIDE 27 mmol/L (22-30); CHLORIDE 99 mmol/L (98-107); CREATININE RESULT 0.52 mg/dL (0.52-1.25); GLUCOSE 102 mg/dL (75-110); POTASSIUM 3.2 mmol/L (3.6-5.0); SODIUM 131.1 mmol/L (137-145)
[2017-03-05 06:16] LABS: ALANINE AMINOTRANSFERASE 44 U/L (9-52); ALKALINE PHOSPHATASE 161 U/L (38-126); ANION GAP 5 (5-19); ASPARTATE AMINO TRANSFERASE 46 U/L (14-36); BILIRUBIN,DIRECT 0.3 mg/dL (0.0-0.4); BILIRUBIN,TOTAL 0.5 mg/dL (0.2-1.3); TOTAL PROTEIN 4.2 g/dL (6.3-8.2)
[2017-03-05 06:19] LABS: HEMOGLOBIN 7.5 g/dL (12.0-15.5)
[2017-03-05] MEDS ORDERED: NORMAL SALINE 250 ML IV PRN (06:25)
--- NOTE | 2017-03-05 06:47 | PDOC PROGRESS REPORT ---
Subjective Progress Note for:: 03/05/17 Reason For Visit: RIGHT HIP FRACTURE 61-year-old white female postop day 3 from an open reduction internal fixation of a right femoral periprosthetic fracture. Patient continues to scream in pain as soon as I enter the room and before I have even touched her. Physical Exam Vital Signs: Temp Pulse Resp BP Pulse Ox 37.2 C 105 H 14 114/61 94 03/05/17 04:05 03/05/17 04:05 03/05/17 04:05 03/05/17 04:05 03/05/17 04:05 Intake & Output 03/03/17 03/04/17 03/05/17 06:59 06:59 06:59 Intake Total 9185 2487 1848 Output Total 4489 5717 2704 Balance 4745 -1213 -852 Weight 97 kg 97 kg General appearance: PRESENT: other Head exam: PRESENT: normocephalic Respiratory exam: PRESENT: unlabored Cardiovascular exam: PRESENT: RRR Pulses: PRESENT: +1 pedal pulses bilateral, other - Leg length discrepancy right shorter than left Vascular exam: PRESENT: normal capillary refill Extremities exam: PRESENT: other - Right lower extremity dressing is clean dry and intact. Leg length inequality. Brisk capillary refill. Neurological exam: PRESENT: awake Psychiatric exam: PRESENT: agitated Skin exam: PRESENT: dry, intact, warm. ABSENT: cyanosis, rash Results Laboratory Results: 03/05/17 05:32 03/05/17 05:32 03/05/17 03/05/17 05:32 05:32 WBC 9.5 RBC 2.68 L Hgb 7.5 L Hct 22.3 L MCV 83 MCH 28.1 MCHC 33.8 RDW 15.8 H Plt Count 279 Seg Neutrophils % 75.9 Lymphocytes % 10.7 L Monocytes % 8.5 Eosinophils % 4.5 Basophils % 0.4 Absolute Neutrophils 7.2 Absolute Lymphocytes 1.0 Absolute Monocytes 0.8 Absolute Eosinophils 0.4 Absolute Basophils 0.0 Sodium 131.1 L Potassium 3.2 L Chloride 99 Carbon Dioxide 27 Anion Gap 5 BUN 6 L Creatinine 0.52 Est GFR ( Amer) > 60 Est GFR (Non-Af Amer) > 60 Glucose 102 Calcium 7.9 L Total Bilirubin 0.5 AST 46 H ALT 44 Alkaline Phosphatase 161 H Total Protein 4.2 L Albumin 2.0 L Impressions: Hip/Pelvis X-Ray 02/27/17 09:50 IMPRESSION: Comminuted fracture of the right proximal femur. Chest X-Ray 02/27/17 11:02 IMPRESSION: NO ACUTE RADIOGRAPHIC FINDING IN THE CHEST. Femur X-Ray 03/02/17 00:00 IMPRESSION: IMAGE(S) OBTAINED DURING PROCEDURE. Fluoroscopy 03/02/17 00:00 IMPRESSION: IMAGE(S) OBTAINED DURING PROCEDURE. Assessment & Plan - Diagnosis (1) Closed right hip fracture Qualifiers: Encounter type: initial encounter Qualified Code(s): S72.001A - Fracture of unspecified part of neck of right femur, initial encounter for closed fracture Is this a current diagnosis for this admission?: Yes Plan: Patient seems to have tolerated the surgical procedure without undue complications. It is difficult to know what her functional baseline is. At this point the wound appears to be healing uneventfully. (2) Acute blood loss as cause of postoperative anemia Is this a current diagnosis for this admission?: Yes Plan: Hematocrit is slipped down to 22%. She received 2 units of packed red blood cells today and repeat labs in the morning. - Plan Summary Plan Summary: 61-year-old white female with an unknown premorbid functional level now with very limited function. This may well be her baseline. I know the family is interested in taking the patient home. I think this would be very difficult. Think the patient be better served in a alf facility.
[2017-03-05] MEDS: QUETIAPINE FUMARATE 25 MG TABLET PO SCH ×2 (08:09→21:04)
[2017-03-05] MEDS: LEVALBUTEROL HCL NEB 1.25 MG/3 ML AMPUL NEB SCH ×2 (08:42→19:38)
[2017-03-05] MEDS: LEVETIRACETAM 500 MG TABLET PO SCH ×2 (10:30→21:04)
[2017-03-05] MEDS: ASPIRIN 81 MG TABLET, CHEWABLE PO SCH (10:30)
[2017-03-05] MEDS: CALCIUM CARBONATE 500 MG TABLET PO SCH (10:31)
[2017-03-05] MEDS: PREGABALIN 75 MG CAPSULE PO SCH ×2 (10:31→17:11)
[2017-03-05] MEDS: DOCUSATE SODIUM 100 MG CAPSULE PO SCH ×2 (10:31→17:11)
[2017-03-05] MEDS: FENTANYL 50 MCG/HR PATCH.TD72 TD SCH (10:34)
[2017-03-05] MEDS: LIDOCAINE 5% (700 MG) TRANSDERMAL ADH..PATCH TP SCH (10:35)
[2017-03-05] MEDS: METOPROLOL TARTRATE 25 MG TABLET PO SCH ×2 (10:48→23:56)
--- NOTE | 2017-03-05 13:47 | PDOC PROGRESS REPORT ---
Subjective Progress Note for:: 03/05/17 Subjective:: Pt states that she is still having pain in her leg. Nursing states that pt has not been screaming as much. Reason For Visit: RIGHT HIP FRACTURE Physical Exam Vital Signs: Temp Pulse Resp BP Pulse Ox 98.6 F 109 H 20 99/51 L 93 03/05/17 08:00 03/05/17 08:42 03/05/17 08:42 03/05/17 08:00 03/05/17 08:42 Intake & Output 03/04/17 03/05/17 03/06/17 06:59 06:59 06:59 Intake Total 2487 2940 300 Output Total 3700 4950 -1212 300 Weight 97 kg 95.7 kg General appearance: PRESENT: no acute distress, morbidly obese, well-developed, well-nourished Head exam: PRESENT: atraumatic, normocephalic Eye exam: PRESENT: conjunctiva pink, EOMI. ABSENT: scleral icterus Ear exam: PRESENT: normal external ear exam Mouth exam: PRESENT: moist, tongue midline Neck exam: ABSENT: carotid bruit, JVD, lymphadenopathy, thyromegaly Respiratory exam: PRESENT: clear to auscultation michael. ABSENT: rales, rhonchi, wheezes Cardiovascular exam: PRESENT: RRR, other - + 2 pitting edema of lower ext.. ABSENT: diastolic murmur, rubs, systolic murmur Pulses: PRESENT: normal dorsalis pedis pul Vascular exam: PRESENT: normal capillary refill GI/Abdominal exam: PRESENT: normal bowel sounds, soft. ABSENT: distended, guarding, mass, organolmegaly, rebound, tenderness Rectal exam: PRESENT: deferred Extremities exam: PRESENT: pedal edema, +2 edema, other - Lower ext contractures. ABSENT: calf tenderness, clubbing Neurological exam: PRESENT: alert, awake, oriented to person, oriented to place , oriented to time, oriented to situation, CN II-XII grossly intact. ABSENT: motor sensory deficit Psychiatric exam: PRESENT: appropriate affect, normal mood. ABSENT: homicidal ideation, suicidal ideation Skin exam: PRESENT: dry, intact, warm. ABSENT: cyanosis, rash Results Laboratory Results: 03/05/17 05:32 03/05/17 05:32 03/05/17 03/05/17 03/05/17 05:32 05:32 06:48 WBC 9.5 RBC 2.68 L Hgb 7.5 L Hct 22.3 L MCV 83 MCH 28.1 MCHC 33.8 RDW 15.8 H Plt Count 279 Seg Neutrophils % 75.9 Lymphocytes % 10.7 L Monocytes % 8.5 Eosinophils % 4.5 Basophils % 0.4 Absolute Neutrophils 7.2 Absolute Lymphocytes 1.0 Absolute Monocytes 0.8 Absolute Eosinophils 0.4 Absolute Basophils 0.0 Sodium 131.1 L Potassium 3.2 L Chloride 99 Carbon Dioxide 27 Anion Gap 5 BUN 6 L Creatinine 0.52 Est GFR ( Amer) > 60 Est GFR (Non-Af Amer) > 60 Glucose 102 Calcium 7.9 L Total Bilirubin 0.5 AST 46 H ALT 44 Alkaline Phosphatase 161 H Total Protein 4.2 L Albumin 2.0 L Blood Type A POSITIVE Antibody Screen NEGATIVE Impressions: Hip/Pelvis X-Ray 02/27/17 09:50 IMPRESSION: Comminuted fracture of the right proximal femur. Chest X-Ray 02/27/17 11:02 IMPRESSION: NO ACUTE RADIOGRAPHIC FINDING IN THE CHEST. Femur X-Ray 03/02/17 00:00 IMPRESSION: IMAGE(S) OBTAINED DURING PROCEDURE. Fluoroscopy 03/02/17 00:00 IMPRESSION: IMAGE(S) OBTAINED DURING PROCEDURE. Assessment & Plan - Diagnosis (1) Volume overload Qualifiers: Hypervolemia type: transfusion-associated Qualified Code(s): E87.71 - Transfusion associated circulatory overload Is this a current diagnosis for this admission?: Yes Plan: Will give Lasix 40 mg IV X 1. (2) Hypokalemia Is this a current diagnosis for this admission?: Yes Plan: Will give additional Potassium. (3) Tachycardia Is this a current diagnosis for this admission?: Yes Plan: Metoprolol 12. 5 mg BID (4) Hypotension due to drugs Is this a current diagnosis for this admission?: Yes Plan: Resolved. (5) Closed right hip fracture Qualifiers: Encounter type: initial encounter Qualified Code(s): S72.001A - Fracture of unspecified part of neck of right femur, initial encounter for closed fracture Is this a current diagnosis for this admission?: Yes Plan: S/P repair: Per Ortho (6) HTN (hypertension) Qualifiers: Hypertension type: unspecified Qualified Code(s): I10 - Essential (primary ) hypertension Is this a current diagnosis for this admission?: Yes Plan: Will continue to monitor. (7) Hyponatremia Is this a current diagnosis for this admission?: Yes Plan: Sodium Chloride TID. (8) UTI (urinary tract infection) Is this a current diagnosis for this admission?: Yes Plan: E. Coli Acute Cystitis: Augmentin. (9) DVT prophylaxis Is this a current diagnosis for this admission?: Yes Plan: SCDs/Heparin. (10) Acute blood loss as cause of postoperative anemia Is this a current diagnosis for this admission?: Yes Plan: Pt receiving 2units of PRBCs. Will check CBC in am. Will give Lasix 60 mg IV X 1. - Time Time Spent with patient: 15-24 minutes Anticipated discharge: Home
[2017-03-05] MEDS ORDERED: FUROSEMIDE INJ/PF 40 MG/4 ML SDV IV ONE (14:30)
[2017-03-05] MEDS ORDERED: POTASSIUM CHLORIDE 10 MEQ TABLET.SA PO ONE (14:30)
[2017-03-05] MEDS: LETROZOLE 2.5 MG TABLET PO SCH (14:53)
[2017-03-05] MEDS: ATORVASTATIN CALCIUM 10 MG TABLET PO SCH (21:04)
[2017-03-06] MEDS: BACLOFEN 10 MG TABLET PO PRN (00:53)
[2017-03-06] MEDS: DIPHENHYDRAMINE HCL 50 MG/ML VIAL IV PRN (00:53)
[2017-03-06] MEDS: HYDROMORPHONE HCL INJ/PF 2 MG/ML AMPULE IV PRN ×4 (02:40→22:37)
[2017-03-06] MEDS: KETOROLAC TROMETHAMINE INJ/PF 30 MG/1 ML SDV IV SCH ×4 (02:40→22:37)
[2017-03-06] MEDS: SODIUM CHLORIDE 1 GM TABLET PO SCH ×3 (05:51→22:39)
[2017-03-06] MEDS: AMOXICILLIN TR/POT CLAVULANATE 500-125 MG TAB PO SCH ×3 (05:54→22:36)
[2017-03-06] MEDS: LANSOPRAZOLE 30 MG TAB.RAP.DR PO SCH (05:54)
[2017-03-06] MEDS: HEPARIN SOD (PORCINE) 5,000 UNIT/ML 1 ML SYRINGE SUBCUT SCH ×3 (05:54→22:36)
[2017-03-06] MEDS: LEVOTHYROXINE SODIUM 0.1 MG TABLET PO SCH (05:54)
[2017-03-06] MEDS: LEVOTHYROXINE SODIUM 0.075 MG TABLET PO SCH (05:54)
[2017-03-06 06:06] LABS: ABSOLUTE BASOPHILS # (AUTO) 0.1 10^3/uL (0.0-0.2); ABSOLUTE EOSINOPHILS # (AUTO) 0.5 10^3/uL (0.0-0.6); ABSOLUTE LYMPHOCYTES (AUTO) 1.3 10^3/uL (0.5-4.7); ABSOLUTE MONOCYTES (AUTO) 0.9 10^3/uL (0.1-1.4); BASOPHILS % (AUTO) 0.7 % (0-2); EOSINOPHILS % (AUTO) 6.2 % (0-6); HEMATOCRIT 28.1 % (36.0-47.0); HGB HCT DIFFERENCE 0.7; LYMPHOCYTES % (AUTO) 16.3 % (13-45); MEAN CORPUSCULAR HGB CONC 34.1 g/dL (32.0-36.0); MEAN CORPUSCULAR VOLUME 82 fl (80-97); MONOCYTES % (AUTO) 11.5 % (3-13); RED BLOOD COUNT 3.42 10^6/uL (3.72-5.28); RED CELL DISTRIBUTION WIDTH 16.4 % (11.5-14.0); SEGMENTED NEUTROPHILS % (AUTO) 65.3 % (42-78); WHITE BLOOD COUNT 7.7 10^3/uL (4.0-10.5)
[2017-03-06 06:15] LABS: HEMOGLOBIN 9.6 g/dL (12.0-15.5)
[2017-03-06 06:21] LABS: ANION GAP 6 (5-19); BLOOD UREA NITROGEN 7 mg/dL (7-20); CARBON DIOXIDE 29 mmol/L (22-30); CHLORIDE 99 mmol/L (98-107); CREATININE RESULT 0.59 mg/dL (0.52-1.25); GLUCOSE 84 mg/dL (75-110); POTASSIUM 3.6 mmol/L (3.6-5.0); SODIUM 134.4 mmol/L (137-145)
--- NOTE | 2017-03-06 07:32 | PDOC PROGRESS REPORT ---
Subjective Progress Note for:: 03/06/17 Subjective:: 61-year-old white female 4 days status post open reduction internal fixation for periprosthetic right hip fracture. When entering patients from this morning she did not cry out in pain. However when blankets were removed she did indicate pain even though I had not touched the patient. She seems less agitated this morning however. Reason For Visit: RIGHT HIP FRACTURE Physical Exam Vital Signs: Temp Pulse Resp BP Pulse Ox 36.9 C 93 19 98/46 L 92 03/06/17 04:43 03/06/17 04:43 03/06/17 04:43 03/06/17 04:43 03/06/17 04:43 Intake & Output 03/05/17 03/06/17 03/07/17 06:59 06:59 06:59 Intake Total 2940 3111 Output Total 4950 4900 Weight 95.7 kg 95.7 kg General appearance: PRESENT: mild distress Head exam: PRESENT: atraumatic, normocephalic Pulses: PRESENT: normal dorsalis pedis pul, +2 pedal pulses bilateral Vascular exam: PRESENT: normal capillary refill Additional comments: Patient lying in the position with hips and knees flexed in hospital bed this morning. On exam patient indicates pain when I have not yet touched her to examine her. I simply removed the bed sheets for which she indicated pain in her hip. Her OpSite dressings are grossly clean dry and intact with minimal saturation of serosanguineous fluid. These are left in place. She has brisk capillary refill to toes on bilateral lower extremities, there is minimal pedal edema and her distal neurovascular exam is intact. Additional comments: Patient remains nonambulatory and has not been seen by physical therapy. As far as we are aware this is her baseline state as she was supposedly bedridden before her periprostatic fracture before entering into the hospital. Therefore , perhaps when she returns to her home or extended care facility she will be seen by physical or occupational therapy for strengthening of upper extremities to follow patient to complete some ADLs. Neurological exam: PRESENT: alert, awake, oriented to person, oriented to place , oriented to time, oriented to situation, CN II-XII grossly intact. ABSENT: motor sensory deficit Psychiatric exam: PRESENT: agitated, other Additional comments: Patient appears still somewhat agitated however less so than on previous exams. Per nursing staff she has been receiving Toradol and Dilaudid from hospitalist service. Perhaps this is a more effective option for pain and agitation. Skin exam: PRESENT: dry, intact, warm. ABSENT: cyanosis, rash Results Laboratory Results: 03/06/17 05:37 03/06/17 05:37 03/05/17 03/06/17 03/06/17 06:48 05:37 05:37 WBC 7.7 RBC 3.42 L Hgb 9.6 L D Hct 28.1 L MCV 82 MCH 28.0 MCHC 34.1 RDW 16.4 H Plt Count 302 Seg Neutrophils % 65.3 Lymphocytes % 16.3 Monocytes % 11.5 Eosinophils % 6.2 H Basophils % 0.7 Absolute Neutrophils 5.0 Absolute Lymphocytes 1.3 Absolute Monocytes 0.9 Absolute Eosinophils 0.5 Absolute Basophils 0.1 Sodium 134.4 L Potassium 3.6 Chloride 99 Carbon Dioxide 29 Anion Gap 6 BUN 7 Creatinine 0.59 Est GFR ( Amer) > 60 Est GFR (Non-Af Amer) > 60 Glucose 84 Calcium 8.0 L Blood Type A POSITIVE Antibody Screen NEGATIVE Impressions: Hip/Pelvis X-Ray 02/27/17 09:50 IMPRESSION: Comminuted fracture of the right proximal femur. Chest X-Ray 02/27/17 11:02 IMPRESSION: NO ACUTE RADIOGRAPHIC FINDING IN THE CHEST. Femur X-Ray 03/02/17 00:00 IMPRESSION: IMAGE(S) OBTAINED DURING PROCEDURE. Fluoroscopy 03/02/17 00:00 IMPRESSION: IMAGE(S) OBTAINED DURING PROCEDURE. Assessment & Plan - Diagnosis (1) Elysia-prosthetic femoral shaft fracture Is this a current diagnosis for this admission?: Yes (2) Acute blood loss as cause of postoperative anemia Is this a current diagnosis for this admission?: Yes Plan: After transfusion of 2 units of blood yesterday patient's hemoglobin and hematocrit are trending upwards. Hemoglobin was 7.5 and hematocrit was 22.3 yesterday whereas lab values this morning indicate a hemoglobin of 9.6 and 28.1. With the transfusion this issue seems to be resolving nicely. - Plan Summary Plan Summary: 61-year-old white female 4 days status post open reduction internal fixation for right periprosthetic fracture. Patient continues to be somewhat agitated on exam despite the fact that she has not been touched during exam. She did not however scream out in pain this morning therefore perhaps she is somewhat less agitated than previously. This could be due to the addition of Toradol and Dilaudid for pain management by hospitalist service. Her OpSite dressings are clean dry and intact with very minimal serosanguineous saturation. She has not been seen by physical therapy as I believe her baseline function before her fracture and entering into the hospital was a nonambulatory and bedridden state. Therefore from a surgical standpoint this is an acceptable surgical outcome and she will be eligible for discharge whenever hospitalist service see appropriate.
[2017-03-06] MEDS: LEVALBUTEROL HCL NEB 1.25 MG/3 ML AMPUL NEB SCH ×2 (07:56→20:22)
[2017-03-06] MEDS: LEVETIRACETAM 500 MG TABLET PO SCH ×2 (10:24→22:37)
[2017-03-06] MEDS: CALCIUM CARBONATE 500 MG TABLET PO SCH (10:24)
[2017-03-06] MEDS: QUETIAPINE FUMARATE 25 MG TABLET PO SCH ×2 (10:25→22:37)
[2017-03-06] MEDS: DOCUSATE SODIUM 100 MG CAPSULE PO SCH ×2 (10:26→17:15)
[2017-03-06] MEDS: PREGABALIN 75 MG CAPSULE PO SCH ×2 (10:26→17:15)
[2017-03-06] MEDS: ASPIRIN 81 MG TABLET, CHEWABLE PO SCH (10:26)
[2017-03-06] MEDS: LIDOCAINE 5% (700 MG) TRANSDERMAL ADH..PATCH TP SCH (10:29)
[2017-03-06] MEDS: METOPROLOL TARTRATE 25 MG TABLET PO SCH ×2 (10:29→22:37)
--- NOTE | 2017-03-06 10:38 | PDOC PROGRESS REPORT ---
Subjective Progress Note for:: 03/06/17 Subjective:: Patient reports that she has been in pain. Patient reports that nursing last night would not give her pain medication. When I arrived patient's bedside patient was sleeping comfortably and appeared in no acute distress. When I woke patient up to as to how she was doing she mentioned above statement. Reason For Visit: RIGHT HIP FRACTURE Physical Exam Vital Signs: Temp Pulse Resp BP Pulse Ox 98.5 F 96 16 98/46 L 90 L 03/06/17 04:43 03/06/17 07:56 03/06/17 07:56 03/06/17 04:43 03/06/17 07:56 Intake & Output 03/05/17 03/06/17 03/07/17 06:59 06:59 06:59 Intake Total 2940 3111 Output Total 4950 4900 Balance -2009 Weight 95.7 kg 95.7 kg General appearance: PRESENT: no acute distress, well-developed, well-nourished Head exam: PRESENT: atraumatic, normocephalic Eye exam: PRESENT: conjunctiva pink, EOMI. ABSENT: scleral icterus Ear exam: PRESENT: normal external ear exam Mouth exam: PRESENT: moist, tongue midline Neck exam: ABSENT: carotid bruit, JVD, lymphadenopathy, thyromegaly Respiratory exam: PRESENT: clear to auscultation michael. ABSENT: rales, rhonchi, wheezes Cardiovascular exam: PRESENT: RRR, other - Positive for +2 pitting edema of lower extremities bilaterally. ABSENT: diastolic murmur, rubs, systolic murmur Pulses: PRESENT: normal dorsalis pedis pul Vascular exam: PRESENT: normal capillary refill GI/Abdominal exam: PRESENT: normal bowel sounds, soft. ABSENT: distended, guarding, mass, organolmegaly, rebound, tenderness Rectal exam: PRESENT: deferred Extremities exam: PRESENT: full ROM, pedal edema, +2 edema. ABSENT: calf tenderness, clubbing Musculoskeletal exam: PRESENT: full ROM Neurological exam: PRESENT: alert, awake, oriented to person, oriented to place , oriented to time, oriented to situation. ABSENT: motor sensory deficit Psychiatric exam: PRESENT: appropriate affect, normal mood. ABSENT: homicidal ideation, suicidal ideation Skin exam: PRESENT: dry, intact, warm. ABSENT: cyanosis, rash Results Laboratory Results: 03/06/17 05:37 03/06/17 05:37 03/05/17 03/06/17 03/06/17 06:48 05:37 05:37 WBC 7.7 RBC 3.42 L Hgb 9.6 L D Hct 28.1 L MCV 82 MCH 28.0 MCHC 34.1 RDW 16.4 H Plt Count 302 Seg Neutrophils % 65.3 Lymphocytes % 16.3 Monocytes % 11.5 Eosinophils % 6.2 H Basophils % 0.7 Absolute Neutrophils 5.0 Absolute Lymphocytes 1.3 Absolute Monocytes 0.9 Absolute Eosinophils 0.5 Absolute Basophils 0.1 Sodium 134.4 L Potassium 3.6 Chloride 99 Carbon Dioxide 29 Anion Gap 6 BUN 7 Creatinine 0.59 Est GFR ( Amer) > 60 Est GFR (Non-Af Amer) > 60 Glucose 84 Calcium 8.0 L Blood Type A POSITIVE Antibody Screen NEGATIVE Impressions: Hip/Pelvis X-Ray 02/27/17 09:50 IMPRESSION: Comminuted fracture of the right proximal femur. Chest X-Ray 02/27/17 11:02 IMPRESSION: NO ACUTE RADIOGRAPHIC FINDING IN THE CHEST. Femur X-Ray 03/02/17 00:00 IMPRESSION: IMAGE(S) OBTAINED DURING PROCEDURE. Fluoroscopy 03/02/17 00:00 IMPRESSION: IMAGE(S) OBTAINED DURING PROCEDURE. Assessment & Plan - Diagnosis (1) Volume overload Qualifiers: Hypervolemia type: transfusion-associated Qualified Code(s): E87.71 - Transfusion associated circulatory overload Is this a current diagnosis for this admission?: Yes Plan: Will give Lasix 20 mg IV X 1. (2) Hypokalemia Is this a current diagnosis for this admission?: Yes Plan: Resolved. (3) Tachycardia Is this a current diagnosis for this admission?: Yes Plan: Metoprolol 12. 5 mg BID (4) Hypotension due to drugs Is this a current diagnosis for this admission?: Yes Plan: Resolved. (5) Closed right hip fracture Qualifiers: Encounter type: initial encounter Qualified Code(s): S72.001A - Fracture of unspecified part of neck of right femur, initial encounter for closed fracture Is this a current diagnosis for this admission?: Yes Plan: S/P repair: Per Ortho (6) HTN (hypertension) Qualifiers: Hypertension type: unspecified Qualified Code(s): I10 - Essential (primary ) hypertension Is this a current diagnosis for this admission?: Yes Plan: Will continue to monitor. (7) Hyponatremia Is this a current diagnosis for this admission?: Yes Plan: Sodium Chloride TID. (8) UTI (urinary tract infection) Is this a current diagnosis for this admission?: Yes Plan: E. Coli Acute Cystitis: Augmentin. (9) Acute blood loss as cause of postoperative anemia Is this a current diagnosis for this admission?: Yes Plan: Pt receiving 2units of PRBCs. Will check CBC in am. (10) DVT prophylaxis Is this a current diagnosis for this admission?: Yes Plan: SCDs/Heparin. - Time Time Spent with patient: 15-24 minutes Anticipated discharge: Home with Homehealth - states that he is planning to take pt home but not sure if he can handle it.
[2017-03-06] MEDS ORDERED: FUROSEMIDE INJ/PF 20 MG/2 ML SDV IV ONE (11:00)
[2017-03-06] MEDS: LETROZOLE 2.5 MG TABLET PO SCH (17:15)
[2017-03-06] MEDS: ZOLPIDEM TARTRATE 5 MG TABLET PO SCH (22:37)
[2017-03-06] MEDS: ATORVASTATIN CALCIUM 10 MG TABLET PO SCH (22:37)
[2017-03-06] MEDS: PHARMACY COMMUNICATION ORDER MC SCH (23:08)
[2017-03-07] MEDS: KETOROLAC TROMETHAMINE INJ/PF 30 MG/1 ML SDV IV SCH ×4 (03:28→21:35)
[2017-03-07] MEDS: HYDROMORPHONE HCL INJ/PF 2 MG/ML AMPULE IV PRN ×5 (03:28→18:58)
[2017-03-07] MEDS: AMOXICILLIN TR/POT CLAVULANATE 500-125 MG TAB PO SCH ×2 (05:52→14:25)
[2017-03-07] MEDS: LEVOTHYROXINE SODIUM 0.075 MG TABLET PO SCH (05:52)
[2017-03-07] MEDS: HEPARIN SOD (PORCINE) 5,000 UNIT/ML 1 ML SYRINGE SUBCUT SCH ×3 (05:52→21:34)
[2017-03-07] MEDS: LEVOTHYROXINE SODIUM 0.1 MG TABLET PO SCH (05:52)
[2017-03-07] MEDS: LANSOPRAZOLE 30 MG TAB.RAP.DR PO SCH (05:53)
[2017-03-07] MEDS: SODIUM CHLORIDE 1 GM TABLET PO SCH ×3 (05:53→21:35)
[2017-03-07 06:38] LABS: ABSOLUTE BASOPHILS # (AUTO) 0.1 10^3/uL (0.0-0.2); ABSOLUTE EOSINOPHILS # (AUTO) 0.5 10^3/uL (0.0-0.6); ABSOLUTE LYMPHOCYTES (AUTO) 1.9 10^3/uL (0.5-4.7); ABSOLUTE NEUT (AUTO) 4.4 10^3/uL (1.7-8.2); BASOPHILS % (AUTO) 0.9 % (0-2); EOSINOPHILS % (AUTO) 6.3 % (0-6); HEMOGLOBIN 9.5 g/dL (12.0-15.5); HGB HCT DIFFERENCE 0.5; LYMPHOCYTES % (AUTO) 23.8 % (13-45); MEAN CORPUSCULAR HEMOGLOBIN 27.8 pg (27.0-33.4); MEAN CORPUSCULAR HGB CONC 33.8 g/dL (32.0-36.0); MEAN CORPUSCULAR VOLUME 82 fl (80-97); MONOCYTES % (AUTO) 12.7 % (3-13); RED BLOOD COUNT 3.41 10^6/uL (3.72-5.28); RED CELL DISTRIBUTION WIDTH 16.5 % (11.5-14.0); SEGMENTED NEUTROPHILS % (AUTO) 56.3 % (42-78); WHITE BLOOD COUNT 7.8 10^3/uL (4.0-10.5)
[2017-03-07 06:47] LABS: ALANINE AMINOTRANSFERASE 45 U/L (9-52); ALBUMIN 2.2 g/dL (3.5-5.0); ALKALINE PHOSPHATASE 143 U/L (38-126); ANION GAP 6 (5-19); ASPARTATE AMINO TRANSFERASE 38 U/L (14-36); BILIRUBIN,DIRECT 0.1 mg/dL (0.0-0.4); BILIRUBIN,TOTAL 0.3 mg/dL (0.2-1.3); BLOOD UREA NITROGEN 7 mg/dL (7-20); CALCIUM 8.1 mg/dL (8.4-10.2); CARBON DIOXIDE 29 mmol/L (22-30); CHLORIDE 99 mmol/L (98-107); CREATININE RESULT 0.53 mg/dL (0.52-1.25); GLUCOSE 113 mg/dL (75-110); MAGNESIUM 1.4 mg/dL (1.6-2.3); POTASSIUM 3.6 mmol/L (3.6-5.0); SODIUM 134.3 mmol/L (137-145); TOTAL PROTEIN 4.5 g/dL (6.3-8.2)
[2017-03-07] MEDS: QUETIAPINE FUMARATE 25 MG TABLET PO SCH ×2 (07:46→21:35)
[2017-03-07] MEDS: LEVALBUTEROL HCL NEB 1.25 MG/3 ML AMPUL NEB SCH ×2 (07:52→19:56)
[2017-03-07] MEDS: LEVETIRACETAM 500 MG TABLET PO SCH ×2 (09:52→21:34)
[2017-03-07] MEDS: CALCIUM CARBONATE 500 MG TABLET PO SCH (09:52)
[2017-03-07] MEDS: PREGABALIN 75 MG CAPSULE PO SCH ×2 (09:52→17:46)
[2017-03-07] MEDS: DOCUSATE SODIUM 100 MG CAPSULE PO SCH ×2 (09:52→17:46)
[2017-03-07] MEDS: ASPIRIN 81 MG TABLET, CHEWABLE PO SCH (09:52)
[2017-03-07] MEDS: METOPROLOL TARTRATE 25 MG TABLET PO SCH ×2 (09:53→21:35)
[2017-03-07] MEDS: LIDOCAINE 5% (700 MG) TRANSDERMAL ADH..PATCH TP SCH (09:53)
--- NOTE | 2017-03-07 11:27 | PDOC PROGRESS REPORT ---
Subjective Progress Note for:: 03/07/17 Subjective:: Patient lying in bed. Continues to complain of pain. According to nursing staff there is no changes. Reason For Visit: RIGHT HIP FRACTURE Physical Exam Vital Signs: Temp Pulse Resp BP Pulse Ox 98.3 F 104 H 18 109/54 L 88 L 03/07/17 08:35 03/07/17 08:35 03/07/17 08:35 03/07/17 08:35 03/07/17 08:35 Intake & Output 03/06/17 03/07/17 03/08/17 06:59 06:59 06:59 Intake Total 3111 1950 Output Total 4900 3300 Balance -1789 -1350 Weight 95.7 kg 95.9 kg Additional comments: Left hip: Patient lying in the position. Pain with attempted motion and straightening of the extremity. Dressing clean/dry/intact no erythema or drainage. Patient is intact plantar flexion/dorsiflexion. Results Laboratory Results: 03/07/17 06:20 03/07/17 06:20 03/07/17 03/07/17 06:20 06:20 WBC 7.8 RBC 3.41 L Hgb 9.5 L Hct 28.0 L MCV 82 MCH 27.8 MCHC 33.8 RDW 16.5 H Plt Count 340 Seg Neutrophils % 56.3 Lymphocytes % 23.8 Monocytes % 12.7 Eosinophils % 6.3 H Basophils % 0.9 Absolute Neutrophils 4.4 Absolute Lymphocytes 1.9 Absolute Monocytes 1.0 Absolute Eosinophils 0.5 Absolute Basophils 0.1 Sodium 134.3 L Potassium 3.6 Chloride 99 Carbon Dioxide 29 Anion Gap 6 BUN 7 Creatinine 0.53 Est GFR ( Amer) > 60 Est GFR (Non-Af Amer) > 60 Glucose 113 H Calcium 8.1 L Magnesium 1.4 L Total Bilirubin 0.3 AST 38 H ALT 45 Alkaline Phosphatase 143 H Total Protein 4.5 L Albumin 2.2 L Impressions: Hip/Pelvis X-Ray 02/27/17 09:50 IMPRESSION: Comminuted fracture of the right proximal femur. Chest X-Ray 02/27/17 11:02 IMPRESSION: NO ACUTE RADIOGRAPHIC FINDING IN THE CHEST. Femur X-Ray 03/02/17 00:00 IMPRESSION: IMAGE(S) OBTAINED DURING PROCEDURE. Fluoroscopy 03/02/17 00:00 IMPRESSION: IMAGE(S) OBTAINED DURING PROCEDURE. Assessment & Plan - Diagnosis (1) Elysia-prosthetic femoral shaft fracture Is this a current diagnosis for this admission?: Yes Plan: According to the patient she has been nonambulatory for 3 years. Her current position in bed has been unchanged during her hospital admission and according to the patient since she has become nonambulatory. At this point I feel she is likely met her functional baseline. Discharge when deemed appropriate via primary service.
[2017-03-07] MEDS: LETROZOLE 2.5 MG TABLET PO SCH (13:42)
--- NOTE | 2017-03-07 14:15 | PDOC PROGRESS REPORT ---
Subjective Progress Note for:: 03/07/17 Subjective:: Patient with closed right fracture status post repair. Patient is stable. She continues to have intermittent low blood pressures however is asymptomatic. Patient is interactive and appropriate currently asking for things. Patient states that she is in pain but does not appear to be in distress. Reason For Visit: RIGHT HIP FRACTURE Physical Exam Vital Signs: Temp Pulse Resp BP Pulse Ox 98.4 F 95 18 97/63 L 93 03/07/17 12:00 03/07/17 12:00 03/07/17 12:00 03/07/17 12:00 03/07/17 12:00 Intake & Output 03/06/17 03/07/17 03/08/17 06:59 06:59 06:59 Intake Total 3111 1950 Output Total 4900 3300 Balance -1789 -1350 Weight 95.7 kg 95.9 kg General appearance: PRESENT: no acute distress, obese, other - Patient lying on left side Head exam: PRESENT: normocephalic Eye exam: PRESENT: EOMI. ABSENT: scleral icterus Ear exam: PRESENT: normal external ear exam Mouth exam: PRESENT: moist Neck exam: ABSENT: carotid bruit, JVD, lymphadenopathy, thyromegaly Respiratory exam: PRESENT: clear to auscultation michael. ABSENT: rales, rhonchi, wheezes Cardiovascular exam: PRESENT: RRR. ABSENT: diastolic murmur, rubs, systolic murmur GI/Abdominal exam: PRESENT: normal bowel sounds, soft. ABSENT: distended, guarding, mass, organolmegaly, rebound, tenderness Rectal exam: PRESENT: deferred Extremities exam: PRESENT: pedal edema, +2 edema. ABSENT: calf tenderness, clubbing Neurological exam: PRESENT: alert, awake, oriented to person, oriented to place , oriented to time. ABSENT: motor sensory deficit Psychiatric exam: PRESENT: appropriate affect, normal mood. ABSENT: homicidal ideation, suicidal ideation Skin exam: PRESENT: dry, intact, warm, other - Dressing on right hip. ABSENT: cyanosis, rash Results Laboratory Results: 03/07/17 06:20 03/07/17 06:20 03/07/17 03/07/17 06:20 06:20 WBC 7.8 RBC 3.41 L Hgb 9.5 L Hct 28.0 L MCV 82 MCH 27.8 MCHC 33.8 RDW 16.5 H Plt Count 340 Seg Neutrophils % 56.3 Lymphocytes % 23.8 Monocytes % 12.7 Eosinophils % 6.3 H Basophils % 0.9 Absolute Neutrophils 4.4 Absolute Lymphocytes 1.9 Absolute Monocytes 1.0 Absolute Eosinophils 0.5 Absolute Basophils 0.1 Sodium 134.3 L Potassium 3.6 Chloride 99 Carbon Dioxide 29 Anion Gap 6 BUN 7 Creatinine 0.53 Est GFR ( Amer) > 60 Est GFR (Non-Af Amer) > 60 Glucose 113 H Calcium 8.1 L Magnesium 1.4 L Total Bilirubin 0.3 AST 38 H ALT 45 Alkaline Phosphatase 143 H Total Protein 4.5 L Albumin 2.2 L Impressions: Hip/Pelvis X-Ray 02/27/17 09:50 IMPRESSION: Comminuted fracture of the right proximal femur. Chest X-Ray 02/27/17 11:02 IMPRESSION: NO ACUTE RADIOGRAPHIC FINDING IN THE CHEST. Femur X-Ray 03/02/17 00:00 IMPRESSION: IMAGE(S) OBTAINED DURING PROCEDURE. Fluoroscopy 03/02/17 00:00 IMPRESSION: IMAGE(S) OBTAINED DURING PROCEDURE. Assessment & Plan - Diagnosis (1) Closed right hip fracture Qualifiers: Encounter type: initial encounter Qualified Code(s): S72.001A - Fracture of unspecified part of neck of right femur, initial encounter for closed fracture Is this a current diagnosis for this admission?: Yes Plan: Status post repair per Ortho. Patient can be discharged from the standpoint. (2) UTI (urinary tract infection) Is this a current diagnosis for this admission?: Yes Plan: E. coli UTI. Patient currently on Augmentin. Patient should have already received adequate treatment. Will discontinue antibiotics. (3) Hyponatremia Is this a current diagnosis for this admission?: Yes Plan: Mild hyponatremia possibly secondary to volume overload. She is asymptomatic. Will continue monitor. (4) Hypokalemia Is this a current diagnosis for this admission?: Yes Plan: Resolved. (5) Seizure disorder Is this a current diagnosis for this admission?: Yes Plan: Continued on Keppra 1000 mg p.o. twice daily. Continue seizure precautions. (6) History of CVA (cerebrovascular accident) Is this a current diagnosis for this admission?: Yes (7) Hypothyroidism Is this a current diagnosis for this admission?: Yes (8) Preoperative clearance Is this a current diagnosis for this admission?: Yes (9) Tachycardia Is this a current diagnosis for this admission?: Yes (10) Acute blood loss as cause of postoperative anemia Is this a current diagnosis for this admission?: Yes Plan: Patient given 2 units of PRBCs. Hemoglobin has been stable. (11) HTN (hypertension) Qualifiers: Hypertension type: unspecified Qualified Code(s): I10 - Essential (primary ) hypertension Is this a current diagnosis for this admission?: Yes Plan: Patient is actually hypotensive. (12) Hypotension due to drugs Is this a current diagnosis for this admission?: Yes (13) Volume overload Qualifiers: Hypervolemia type: transfusion-associated Qualified Code(s): E87.71 - Transfusion associated circulatory overload Is this a current diagnosis for this admission?: Yes Plan: Patient being gently diuresed in view of hypotension and hypnatremia. Will start on lasix 10mg po bid and monitor electrolytes. (14) DVT prophylaxis Is this a current diagnosis for this admission?: Yes Plan: Patient on heparin. - Time Time Spent with patient: Less than 15 minutes Anticipated discharge: Home, Home with Homehealth Within: within 48 hours - Inpatient Certification Medical Necessity: Need for Pain Control
[2017-03-07] MEDS: FUROSEMIDE 20 MG TABLET PO SCH (17:47)
[2017-03-07] MEDS ORDERED: POTASSI CL 20 MEQ/50 ML RIDER 20 MEQ/50 ML RTUPB IV ONE (18:00)
[2017-03-07] MEDS: ZOLPIDEM TARTRATE 5 MG TABLET PO SCH (21:36)
[2017-03-07] MEDS: ATORVASTATIN CALCIUM 10 MG TABLET PO SCH (21:37)
[2017-03-07] MEDS: PHARMACY COMMUNICATION ORDER MC SCH (21:38)
[2017-03-08] MEDS: DIPHENHYDRAMINE HCL 50 MG/ML VIAL IV PRN (01:45)
[2017-03-08] MEDS: KETOROLAC TROMETHAMINE INJ/PF 30 MG/1 ML SDV IV SCH ×2 (03:11→09:52)
[2017-03-08 04:27] VITALS: BP 129/84
[2017-03-08] MEDS: LEVOTHYROXINE SODIUM 0.1 MG TABLET PO SCH (05:32)
[2017-03-08] MEDS: LANSOPRAZOLE 30 MG TAB.RAP.DR PO SCH (05:32)
[2017-03-08] MEDS: LEVOTHYROXINE SODIUM 0.075 MG TABLET PO SCH (05:32)
[2017-03-08] MEDS: HEPARIN SOD (PORCINE) 5,000 UNIT/ML 1 ML SYRINGE SUBCUT SCH (05:32)
[2017-03-08] MEDS: SODIUM CHLORIDE 1 GM TABLET PO SCH (05:33)
[2017-03-08] MEDS: HYDROMORPHONE HCL INJ/PF 2 MG/ML AMPULE IV PRN ×3 (06:55→13:12)
[2017-03-08 07:43] LABS: ANION GAP 8 (5-19); BLOOD UREA NITROGEN 8 mg/dL (7-20); CALCIUM 8.6 mg/dL (8.4-10.2); CARBON DIOXIDE 28 mmol/L (22-30); CHLORIDE 100 mmol/L (98-107); CREATININE RESULT 0.58 mg/dL (0.52-1.25); GLUCOSE 96 mg/dL (75-110); POTASSIUM 4.1 mmol/L (3.6-5.0); SODIUM 136.3 mmol/L (137-145)
[2017-03-08] MEDS: LEVALBUTEROL HCL NEB 1.25 MG/3 ML AMPUL NEB SCH (08:19)
[2017-03-08 09:20] LABS: ABSOLUTE BASOPHILS # (AUTO) 0.1 10^3/uL (0.0-0.2); ABSOLUTE EOSINOPHILS # (AUTO) 0.3 10^3/uL (0.0-0.6); ABSOLUTE LYMPHOCYTES (AUTO) 1.7 10^3/uL (0.5-4.7); ABSOLUTE MONOCYTES (AUTO) 0.9 10^3/uL (0.1-1.4); ABSOLUTE NEUT (AUTO) 9.7 10^3/uL (1.7-8.2); BASOPHILS % (AUTO) 0.5 % (0-2); EOSINOPHILS % (AUTO) 2.6 % (0-6); HEMATOCRIT 30.5 % (36.0-47.0); HEMOGLOBIN 9.9 g/dL (12.0-15.5); HGB HCT DIFFERENCE -0.8; LYMPHOCYTES % (AUTO) 13.4 % (13-45); MEAN CORPUSCULAR HEMOGLOBIN 27.1 pg (27.0-33.4); MEAN CORPUSCULAR HGB CONC 32.5 g/dL (32.0-36.0); MEAN CORPUSCULAR VOLUME 83 fl (80-97); MONOCYTES % (AUTO) 7.2 % (3-13); RED BLOOD COUNT 3.66 10^6/uL (3.72-5.28); RED CELL DISTRIBUTION WIDTH 16.5 % (11.5-14.0); SEGMENTED NEUTROPHILS % (AUTO) 76.3 % (42-78); WHITE BLOOD COUNT 12.7 10^3/uL (4.0-10.5)
[2017-03-08] MEDS: QUETIAPINE FUMARATE 25 MG TABLET PO SCH (09:52)
[2017-03-08] MEDS: LETROZOLE 2.5 MG TABLET PO SCH (09:53)
[2017-03-08] MEDS: ASPIRIN 81 MG TABLET, CHEWABLE PO SCH (09:53)
[2017-03-08] MEDS: FUROSEMIDE 20 MG TABLET PO SCH (09:53)
[2017-03-08] MEDS: DOCUSATE SODIUM 100 MG CAPSULE PO SCH (09:53)
[2017-03-08] MEDS: CALCIUM CARBONATE 500 MG TABLET PO SCH (09:53)
[2017-03-08] MEDS: FENTANYL 50 MCG/HR PATCH.TD72 TD SCH (09:54)
[2017-03-08] MEDS: LIDOCAINE 5% (700 MG) TRANSDERMAL ADH..PATCH TP SCH (09:54)
[2017-03-08] MEDS: PREGABALIN 75 MG CAPSULE PO SCH (09:54)
[2017-03-08] MEDS: METOPROLOL TARTRATE 25 MG TABLET PO SCH (09:54)
[2017-03-08] MEDS: LEVETIRACETAM 500 MG TABLET PO SCH (09:54)
[2017-03-08] MEDS ORDERED: METOLAZONE 2.5 MG TABLET PO SCH (10:00)
--- NOTE | 2017-03-08 11:18 | PDOC DISCHARGE SUMMARY ---
General - Admit/Disc Date/PCP Admission Date/Primary Care Provider: 02/27/17 11:41 IRIS PAUL MD Discharge Date: 03/08/17 - Discharge Diagnosis (1) Closed right hip fracture Is this a current diagnosis for this admission?: Yes (2) UTI (urinary tract infection) Is this a current diagnosis for this admission?: Yes (3) Hyponatremia Is this a current diagnosis for this admission?: Yes (4) Hypokalemia Is this a current diagnosis for this admission?: Yes (5) Seizure disorder Is this a current diagnosis for this admission?: Yes (6) History of CVA (cerebrovascular accident) Is this a current diagnosis for this admission?: Yes (7) Hypothyroidism Is this a current diagnosis for this admission?: Yes (8) Preoperative clearance Is this a current diagnosis for this admission?: Yes (9) Tachycardia Is this a current diagnosis for this admission?: Yes (10) Acute blood loss as cause of postoperative anemia Is this a current diagnosis for this admission?: Yes (11) HTN (hypertension) Is this a current diagnosis for this admission?: Yes (12) Hypotension due to drugs Is this a current diagnosis for this admission?: Yes (13) Volume overload Is this a current diagnosis for this admission?: Yes (14) DVT prophylaxis Is this a current diagnosis for this admission?: Yes - Additional Information Resuscitation Status: Full Code Discharge Diet: Cardiac Discharge Activity: Bedrest Prescriptions: Aspirin [Aspirin 325 mg Tablet] 325 mg PO DAILY PRN 30 Days #1 pkg PRN Reason: Furosemide [Lasix 20 mg Tablet] 10 mg PO BID 5 Days #5 tablet Metolazone [Zaroxolyn 2.5 mg Tablet] 2.5 mg PO DAILY 5 Days #5 tablet Metoprolol Tartrate [Lopressor 25 mg Tablet] 12.5 mg PO Q12 30 Days #30 tablet Oxycodone HCl [Oxy-Ir 5 mg Tablet] 5 mg PO Q6HP PRN 2 Days #8 tablet PRN Reason: Home Medications: Atorvastatin Calcium [Lipitor 10 mg Tablet] 10 mg PO QHS 12/16/16 Dextromethorphan HBr/Quinidine [Nuedexta 20-10 mg Capsule] 1 cap PO Q12 Fentanyl [Duragesic 50 Mcg/Hr Transdermal Patch] 1 each TD Q3D 12/16/16 Letrozole [Femara 2.5 mg Tablet] 2.5 mg PO DAILY 12/16/16 Levothyroxine Sodium [Synthroid] 175 mcg PO Q6AM 12/16/16 Morphine Sulfate [Morphine Ir 30 mg Tablet] 30 mg PO Q8 12/16/16 Zolpidem Tartrate [Zolpidem Tartrate ER] 12.5 mg PO QHS 12/16/16 Calcium Carbonate [Calcium] 600 mg PO DAILY 02/27/17 Cholecalciferol (Vitamin D3) [Vitamin D3 5000 unit Capsule] 5,000 unit PO DAILY 02/27/17 Cyanocobalamin (Vitamin B-12) [Vitamin B12] 2,000 mcg PO DAILY 02/27/17 Levetiracetam [Keppra 500 mg Tablet] 1,000 mg PO BID 02/27/17 Lidocaine 1 each TP DAILY 02/27/17 Loperamide HCl [Loperamide] 2 mg PO DAILYP PRN 02/27/17 Potassium 595 mg PO DAILY 02/27/17 Quetiapine Fumarate [Seroquel] 50 mg PO BID 02/27/17 Sennosides [Senna] 8.6 mg PO DAILYP PRN 02/27/17 Trazodone HCl 200 mg PO HSP PRN 02/27/17 Vitamin E 400 unit PO DAILY 02/27/17 Aspirin [Aspirin 325 mg Tablet] 325 mg PO DAILY PRN 30 Days #1 pkg 03/08/17 Furosemide [Lasix 20 mg Tablet] 10 mg PO BID 5 Days #5 tablet 03/08/17 Metolazone [Zaroxolyn 2.5 mg Tablet] 2.5 mg PO DAILY 5 Days #5 tablet 03/08/17 Metoprolol Tartrate [Lopressor 25 mg Tablet] 12.5 mg PO Q12 30 Days #30 tablet 03/08/17 Oxycodone HCl [Oxy-Ir 5 mg Tablet] 5 mg PO Q6HP PRN 2 Days #8 tablet 03/08/17 History of Present Illness History of Present Illness: MARIE SEGURA is a 61 year old female with a history of dementia, seizures, depression, thyroidism and stroke now bedbound with a 5 day history of worsening pain. Per patient's , as patient is unable to give any history , she does not appear to be in more pain than usual. She normally yells out however she was yellowing out more often. Overnight patient right hip was noted to be more swollen and tender. On presentation to the ED patient was found to have comminuted fracture of the right proximal femur. This was explained to the . When asked how this could have happened he stated that maybe when patient is being turned in the bed. He denies patient falling out of bed or having any other falls. ED patient is in much distress. Patient was given several doses of morphine to assist with the pain. ED was instructed to put a knee immobilizer in place by Ortho however this was unsuccessful due to patient's severe pain. This was called to admit patient under service. Orthopedics will be consulted to evaluate patient's hip. General H&P was dictated by Dr. Nahomy oglesby. Hospital Course Hospital Course: Patient presented with worsening pain of her right hip. Patient was noted to have right prosthetic femur fracture. After being given preop clearance. Patient was evaluated by Dr. Yeh and brought to the OR on 03/02/2017 where she had an open reduction internal fixation of the right. Prosthetic femur fracture. She did tolerate the procedure well. Patient was started on DVT prophylaxis and did receive subcutaneous heparin for 8 days. Patient will be discharged on high-dose aspirin for month to be followed by her 81 mg daily which she had been taken prior to the procedure. She did have E. coli UTI on presentation. Patient was started on ceftriaxone and receive several date doses and then switched to Augmentin which she received several more doses. Patient Wong will be discontinued prior to discharge home. Patient also developed tachycardia which appears to be a chronic problem. Patient started on low-dose metoprolol and tolerated well. Patient heart rates are better controlled. Patient was also found to be volume overloaded. Patient is persistently hypotensive and was receiving volume resuscitation. Patient was diuresed with Lasix and metolazone and has removed over 7 L of fluid. Patient still has bilateral pitting edema but this may be chronic. She is being discharged on 5 more days of Lasix 10 mg twice daily along with all his own 2.5 mg daily. Patient had hypokalemia which was replaced and is now normal. Patient also had acute blood loss and the anemia following the surgery and was given 2 units of packed RBCs. His hemoglobin on discharge is 9.9. It was 7.5 prior to transfusion. Patient does have a history of seizure disorders but did not have any seizure activity while in hospital. She was continued on her Keppra 1000 mg p.o. twice daily. Patient does have chronic pain but her pain seems to be fairly well-controlled during hospitalization. Patient did have some mild hyponatremia however this is most likely due to the volume overload. Patient was seen on her thyroid replacement for hypothyroidism. Patient is doing well today although she was screaming which is not unusual for her. Patient was easily calmed down and given her medication and fed her breakfast. Medically patient is doing well and orthopedics has signed off the case. Patient is being discharged home with home health and with the appropriate follow-ups. Physical Exam Vital Signs: Temp Pulse Resp BP Pulse Ox 98.9 F 96 19 129/84 H 93 03/08/17 04:00 03/08/17 07:00 03/08/17 04:00 03/08/17 04:00 03/08/17 04:00 Intake & Output 03/07/17 03/08/17 03/09/17 06:59 06:59 06:59 Intake Total 1950 1520 Output Total 3300 2875 Balance -1350 -1355 Weight 95.9 kg 95.9 kg General appearance: PRESENT: no acute distress, obese, other - On the right side patient lying on left side with legs flexed. Head exam: PRESENT: normocephalic Eye exam: PRESENT: EOMI. ABSENT: scleral icterus Ear exam: PRESENT: normal external ear exam Mouth exam: PRESENT: moist Neck exam: ABSENT: carotid bruit, JVD, lymphadenopathy, thyromegaly Respiratory exam: PRESENT: clear to auscultation michael. ABSENT: rales, rhonchi, wheezes Cardiovascular exam: PRESENT: RRR. ABSENT: diastolic murmur, rubs, systolic murmur Pulses: PRESENT: normal dorsalis pedis pul Vascular exam: PRESENT: normal capillary refill GI/Abdominal exam: PRESENT: normal bowel sounds, soft. ABSENT: distended, guarding, mass, organolmegaly, rebound, tenderness Rectal exam: PRESENT: deferred Extremities exam: PRESENT: full ROM, pedal edema, +2 edema. ABSENT: calf tenderness, clubbing Neurological exam: PRESENT: alert, awake, oriented to person, oriented to place , oriented to time, other - Patient is able to follow commands.. ABSENT: motor sensory deficit Psychiatric exam: PRESENT: agitated, anxious. ABSENT: homicidal ideation, suicidal ideation Skin exam: PRESENT: dry, intact, warm, other - She is on her left knee. Right hip dressing in place.. ABSENT: cyanosis, rash Results Laboratory Results: 03/08/17 06:25 03/08/17 06:25 03/08/17 03/08/17 03/08/17 06:25 06:25 06:25 WBC 12.7 H RBC 3.66 L Hgb 9.9 L Hct 30.5 L MCV 83 MCH 27.1 MCHC 32.5 RDW 16.5 H Plt Count 426 Seg Neutrophils % 76.3 Lymphocytes % 13.4 Monocytes % 7.2 Eosinophils % 2.6 Basophils % 0.5 Absolute Neutrophils 9.7 H Absolute Lymphocytes 1.7 Absolute Monocytes 0.9 Absolute Eosinophils 0.3 Absolute Basophils 0.1 Sodium 136.3 L Potassium 4.1 Chloride 100 Carbon Dioxide 28 Anion Gap 8 BUN 8 Creatinine 0.58 Est GFR ( Amer) > 60 Est GFR (Non-Af Amer) > 60 Glucose 96 Calcium 8.6 Magnesium 1.3 L Impressions: Hip/Pelvis X-Ray 02/27/17 09:50 IMPRESSION: Comminuted fracture of the right proximal femur. Chest X-Ray 02/27/17 11:02 IMPRESSION: NO ACUTE RADIOGRAPHIC FINDING IN THE CHEST. Femur X-Ray 03/02/17 00:00 IMPRESSION: IMAGE(S) OBTAINED DURING PROCEDURE. Fluoroscopy 03/02/17 00:00 IMPRESSION: IMAGE(S) OBTAINED DURING PROCEDURE. Qualifiers PATEINT BEING DISCHARGED WITH ANY OF THE FOLLOWING DIAGNOSIS?: No Plan Time Spent: Greater than 30 Minutes - Patient is being discharged home with home health. Patient to follow-up with Dr. Yeh in the office. Patient is complete 5 more days of diuresis with Lasix 10 mg p.o. twice daily and metolazone 2.5 mg daily. Patient is already on potassium supplementation.
== END 2017-03-08 13:25 | disposition home health service (06) | DRG 481 ==
LOC: ER 09:41 → EH 11:41 → 4S 14:00
PROVIDERS: ADMIT Hospitalist; ATTEND Hospitalist
PROC: 30233N1 Transfusion of Nonautologous Red Blood Cells into Peripheral Vein, Percutaneous Approach (ICD-10-PCS; 2017-03-02)
PROC: 0QS604Z Reposition Right Upper Femur with Internal Fixation Device, Open Approach (ICD-10-PCS; principal; 2017-03-02 09:45)
PROC: 30233N1 Transfusion of Nonautologous Red Blood Cells into Peripheral Vein, Percutaneous Approach (ICD-10-PCS; 2017-03-05)
DX: M80.051A Age-related osteoporosis with current pathological fracture, right femur, initial encounter for fracture (principal); E87.1 Hypo-osmolality and hyponatremia; D62 Acute posthemorrhagic anemia; N39.0 Urinary tract infection, site not specified; B96.20 Unspecified Escherichia coli [E. coli] as the cause of diseases classified elsewhere; E87.6 Hypokalemia; G40.909 Epilepsy, unspecified, not intractable, without status epilepticus; R00.0 Tachycardia, unspecified; E87.71 Transfusion associated circulatory overload; I95.2 Hypotension due to drugs; T50.905A Adverse effect of unspecified drugs, medicaments and biological substances, initial encounter; Y92.239 Unspecified place in hospital as the place of occurrence of the external cause; I10 Essential (primary) hypertension; E03.9 Hypothyroidism, unspecified; G89.29 Other chronic pain; F32.9 Major depressive disorder, single episode, unspecified; Z79.82 Long term (current) use of aspirin; Z79.899 Other long term (current) drug therapy; Z86.73 Personal history of transient ischemic attack (TIA), and cerebral infarction without residual deficits; Z74.01 Bed confinement status; Z90.710 Acquired absence of both cervix and uterus; Z96.643 Presence of artificial hip joint, bilateral
CPT/HCPCS: 01230; 36415; 36430; 71010; 80048; 80053; 81001; 82330; 82550; 82652; 83735; 84439; 84443; 85025; 85610; 85730; 86850; 86900; 86901; 86920; 87086; 87088; 87186; 93005; 93010; 94640; 94799; 96361; 96374; 96375; 96376; 99285; C9290; J0131; J0171; J0696; J1170; J1200; J1644; J1741; J1885; J1940; J2060; J2250; J2270; J2405; J2704; J3010; J3370; J3475; J3480; J3490; J7030; J7050; J7120; J7620; L1830; P9016

== ENCOUNTER 2017-03-09 13:09 | Emergency (ER) | payer OTHER, MEDICAID ==
[2017-03-09] MEDS ORDERED: MORPHINE SULFATE 10 MG/ML INJ IV ONE (13:34)
--- NOTE | 2017-03-09 13:45 | ER Document Report ---
ED Hip Pain/Injury - General Mode of Arrival: Ambulatory Information source: Patient TRAVEL OUTSIDE OF THE [place] IN LAST 30 DAYS: No <DASHAWN SIMPSON - Last Filed: 03/09/17 13:40> <KIP ARIAS - Last Filed: 03/09/17 15:54> - General Chief Complaint: Hip Pain Stated Complaint: RIGHT HIP PAIN Time Seen by Provider: 03/09/17 13:22 Notes: Patient is a 61 year old female that presents to the emergency room with complaints of reaction right hip pain. Patient had right hip surgery on 2016 secondary to a femur fracture. Patient had previous had a right hip replacement. Patient states her Q8 30mg morphine is not enough for her pain. Patient denies any new injuries/trauma. (DASHAWN SIMPSON) - Related Data Allergies/Adverse Reactions: No Known Allergies Allergy (Verified 01/27/12 19:02) Home Medications: Current Home Medications Diclofenac Sodium [Voltaren] 2 gm .ROUTE TID 03/09/17 [History] Oxycodone HCl [Oxy-Ir 5 mg Tablet] 2.5 mg PO Q6HP PRN 03/09/17 [History] Past Medical History - General Information source: Patient - Social History Smoking Status: Never Smoker Cigarette use (# per day): No Frequency of alcohol use: None Drug Abuse: None Lives with: Family Family History: Reviewed & Not Pertinent, Malignancy - Past Medical History Cardiac Medical History: Reports: Hx Hypertension Neurological Medical History: Reports: Hx Cerebrovascular Accident - 2006, FROM BACTERIAL MENINGITIS PSEUDAMONAS, Hx Seizures - LAST IN 2008 Psychiatric Medical History: Reports: Hx Dementia, Hx Depression Past Surgical History: Reports: Hx Breast Surgery - L lumpectomy, Hx Hysterectomy, Hx Orthopedic Surgery - bilateral hip replacement, R rotator cuff repair, R ankle fx and reapir - Immunizations Hx Diphtheria, Pertussis, Tetanus Vaccination: No Hx Pneumococcal Vaccination: 03/16/11 <DASHAWN SIMPSON - Last Filed: 03/09/17 13:40> Review of Systems - Review of Systems Constitutional: No symptoms reported EENT: No symptoms reported Cardiovascular: No symptoms reported Respiratory: No symptoms reported Gastrointestinal: No symptoms reported Genitourinary: No symptoms reported Female Genitourinary: No symptoms reported Musculoskeletal: See HPI, Joint pain - RLE Skin: No symptoms reported Hematologic/Lymphatic: No symptoms reported Neurological/Psychological: No symptoms reported -: Yes All other systems reviewed and negative <DASHAWN SIMPSON - Last Filed: 03/09/17 13:40> Physical Exam - Vital signs Interpretation: Normal - General General appearance: Appears well, Alert - HEENT Head: Normocephalic, Atraumatic Eyes: Normal Pupils: PERRL - Respiratory Respiratory status: No respiratory distress Chest status: Nontender Breath sounds: Normal Chest palpation: Normal - Cardiovascular Rhythm: Regular Heart sounds: Normal auscultation Murmur: No - Abdominal Inspection: Normal Distension: No distension Bowel sounds: Normal Tenderness: Nontender Organomegaly: No organomegaly - Back Back: Normal, Nontender - Extremities General upper extremity: Normal inspection, Normal ROM. No: Edema General lower extremity: No: Other - Hips and knees held flexed in >90. edema up to hip on RLE, erythema on right thigh/leg, complains of pain with palpation of the soft tissues surrounding surgical scar - Neurological Neuro grossly intact: Yes Cognition: Normal Orientation: AAOx4 Jaxson Coma Scale Eye Opening: Spontaneous Roosevelt Coma Scale Verbal: Oriented Roosevelt Coma Scale Motor: Obeys Commands Jaxson Coma Scale Total: 15 Speech: Normal Sensory: Normal - Psychological Associated symptoms: Normal affect, Normal mood - Skin Skin Temperature: Warm Skin Moisture: Dry Skin Color: Normal <DASHAWN SIMPSON - Last Filed: 03/09/17 13:40> - Vital signs Vitals: Temp Pulse Resp BP Pulse Ox 98.8 F 102 H 20 112/51 L 89 L 03/09/17 13:22 03/09/17 13:22 03/09/17 13:22 03/09/17 13:22 03/09/17 13:22 Course <TATIANACASIMIRODASHAWN - Last Filed: 03/09/17 13:40> - Laboratory Result Diagrams: 03/09/17 14:37 <KIP ARIAS - Last Filed: 03/09/17 15:54> - Re-evaluation Re-evalutation: 03/09/17 15:49 Dr. Sutton came down to see the patient as she is one who discharged her 2 days ago. She reports the thigh and leg do not look any different than they did 2 days ago. The patient is on morphine every 8 hours and fentanyl patch on a chronic basis, so she has no additional pain management for the postoperative pain. She will write prescriptions for baclofen and Lyrica as the spouse thinks that that may help control the pain as apparently it was while she was in the hospital. (KIP ARIAS) - Vital Signs Vital signs: Temp Pulse Resp BP Pulse Ox 98.8 F 102 H 20 112/51 L 89 L 03/09/17 13:22 03/09/17 13:22 03/09/17 13:22 03/09/17 13:22 03/09/17 13:22 - Laboratory Laboratory results interpreted by me: 03/09/17 14:37 WBC 11.9 H RBC 3.58 L Hgb 9.9 L Hct 29.9 L RDW 16.5 H Plt Count 452 H Absolute Neutrophils 9.0 H Discharge <DASHAWN SIMPSON - Last Filed: 03/09/17 13:40> <KIP ARIAS - Last Filed: 03/09/17 15:54> - Discharge Clinical Impression: Postoperative pain of extremity Condition: Stable Disposition: HOME, SELF-CARE Additional Instructions: Add the medications as prescribed by Dr. Sutton. Follow-up with Dr. Yeh next week for wound recheck. RETURN TO THE EMERGENCY ROOM IF ANY NEW OR WORSENING SYMPTOMS. Referrals: IRIS PAUL MD [Primary Care Provider] - Follow up as needed Scribe Attestation: 03/09/17 15:02 I personally performed the services described in the documentation, reviewed and edited the documentation which was dictated to the scribe in my presence, and it accurately records my words and actions. (KIP ARIAS) Scribe Documentation - Scribe Written by Tiff:: Tiff Mims, 03/09/2017 1417 acting as scribe for :: Jennifer <DASHAWN SIMPSON - Last Filed: 03/09/17 13:40>
[2017-03-09 14:46] LABS: ABSOLUTE BASOPHILS # (AUTO) 0.1 10^3/uL (0.0-0.2); ABSOLUTE EOSINOPHILS # (AUTO) 0.4 10^3/uL (0.0-0.6); ABSOLUTE LYMPHOCYTES (AUTO) 1.8 10^3/uL (0.5-4.7); ABSOLUTE MONOCYTES (AUTO) 0.6 10^3/uL (0.1-1.4); BASOPHILS % (AUTO) 0.5 % (0-2); EOSINOPHILS % (AUTO) 3.7 % (0-6); HEMATOCRIT 29.9 % (36.0-47.0); HEMOGLOBIN 9.9 g/dL (12.0-15.5); HGB HCT DIFFERENCE -0.2; LYMPHOCYTES % (AUTO) 14.9 % (13-45); MEAN CORPUSCULAR HEMOGLOBIN 27.5 pg (27.0-33.4); MEAN CORPUSCULAR VOLUME 84 fl (80-97); MONOCYTES % (AUTO) 5.2 % (3-13); RED BLOOD COUNT 3.58 10^6/uL (3.72-5.28); RED CELL DISTRIBUTION WIDTH 16.5 % (11.5-14.0); SEGMENTED NEUTROPHILS % (AUTO) 75.7 % (42-78); WHITE BLOOD COUNT 11.9 10^3/uL (4.0-10.5)
--- NOTE | 2017-03-09 14:53 | RADIOLOGY REPORT (SQ) ---
EXAM DESCRIPTION: FEMUR RIGHT COMPLETED DATE/TIME: 03/09/2017 2:23 pm REASON FOR STUDY: Postop pain and swelling COMPARISON: Intraoperative images on 03/02/2017. NUMBER OF VIEWS: Two views. TECHNIQUE: Two radiographic images acquired of the right femur to include hip and knee in at least o ne projection. LIMITATIONS: None. FINDINGS: MINERALIZATION: Normal. BONES: Comminuted fracture of the femur with extensive hardware and cerclage wires. SOFT TISSUES: Postoperative changes with overlying skin emir. OTHER: No other significant finding. IMPRESSION: COMMINUTED FRACTURE OF THE FEMUR WITH EXTENSIVE HARDWARE. DIFFICULT TO DETERMINE IF THE RE HAS BEEN SIGNIFICANT CHANGE COMPARED INTRAOPERATIVE IMAGES DUE TO DIFFERENCES IN POSITIONING. TECHNICAL DOCUMENTATION: JOB ID: [id number] [employer]- All Rights Reserved
--- NOTE | 2017-03-09 16:50 | PDOC CONSULTATION ---
Consultation Consult Date: 03/09/17 Attending physician:: DAVID GUPTA Consult reason:: Right hip pain History of Present Illness Admission Date/PCP: IRIS PAUL MD History of Present Illness: MARIE SEGURA is a 61 year old female with a history of seizures, depression, hypothyroidism and stroke who is bedbound who suffered a right prosthetic femur fracture and is status post repair on 03/02/[address] Yeh brought into the ED by her family for constant screaming and swelling of the right thigh. Patient was discharged on her home dose of fentanyl and morphine. Patient was also discharged on oxycodone. Patient was evaluated by orthopedics Dr. Marie on 03/07/2017 who stated that was appropriate for discharge from their standpoint. Patient is to follow-up with Dr. Yeh on discharge. In the ED patient was evaluated in physical examination was unchanged from discharge. There is some swelling however patient was volume overloaded during her hospitalization and was diuresed over 7 L. Patient was discharged on Lasix and metolazone. Patient still has significant edema however improved. Past Medical History Cardiac Medical History: Reports: Hypertension Denies: Coronary Artery Disease, Myocardial Infarction Pulmonary Medical History: Denies: Asthma, Bronchitis, Chronic Obstructive Pulmonary Disease (COPD), Pneumonia, Tuberculosis Neurological Medical History: Reports: Seizures - LAST IN 2008 Musculoskeltal Medical History: Denies: Arthritis Psychiatric Medical History: Reports: Dementia, Depression Hematology: Reports: Anemia Past Surgical History Past Surgical History: Reports: Hysterectomy, Orthopedic Surgery - bilateral hip replacement, R rotator cuff repair, R ankle fx and reapir Social History Lives with: Family Smoking Status: Never Smoker Frequency of Alcohol Use: None Hx Recreational Drug Use: No Drugs: None Hx Prescription Drug Abuse: No - Advance Directive Resuscitation Status: Full Code Family History Family History: Malignancy Parental Family History Reviewed: No Children Family History Reviewed: No Sibling(s) Family History Reviewed.: No Medication/Allergy Home Medications: Atorvastatin Calcium [Lipitor 10 mg Tablet] 10 mg PO QHS 12/16/16 Dextromethorphan HBr/Quinidine [Nuedexta 20-10 mg Capsule] 1 cap PO Q12 Fentanyl [Duragesic 50 Mcg/Hr Transdermal Patch] 1 each TD Q3D 12/16/16 Letrozole [Femara 2.5 mg Tablet] 2.5 mg PO DAILY 12/16/16 Levothyroxine Sodium [Synthroid] 175 mcg PO Q6AM 12/16/16 Morphine Sulfate [Morphine Ir 30 mg Tablet] 30 mg PO Q8 12/16/16 Zolpidem Tartrate [Zolpidem Tartrate ER] 12.5 mg PO QHS 12/16/16 Calcium Carbonate [Calcium] 600 mg PO DAILY 02/27/17 Cholecalciferol (Vitamin D3) [Vitamin D3 5000 unit Capsule] 5,000 unit PO DAILY 02/27/17 Cyanocobalamin (Vitamin B-12) [Vitamin B12] 2,000 mcg PO DAILY 02/27/17 Levetiracetam [Keppra 500 mg Tablet] 1,000 mg PO BID 02/27/17 Lidocaine 1 each TP DAILY 02/27/17 Loperamide HCl [Loperamide] 2 mg PO DAILYP PRN 02/27/17 Potassium 595 mg PO DAILY 02/27/17 Quetiapine Fumarate [Seroquel] 50 mg PO BID 02/27/17 Sennosides [Senna] 8.6 mg PO DAILYP PRN 02/27/17 Trazodone HCl 200 mg PO HSP PRN 02/27/17 Vitamin E 400 unit PO DAILY 02/27/17 Aspirin [Aspirin 325 mg Tablet] 325 mg PO DAILY PRN 30 Days #1 pkg 03/08/17 Baclofen 5 mg PO BID 30 Days #30 tablet 03/09/17 Diclofenac Sodium [Voltaren] 2 gm .ROUTE TID 03/09/17 Oxycodone HCl 5 mg PO Q4 2 Days #12 capsule 03/09/17 Pregabalin [Lyrica 25 Mg Capsule] 25 mg PO TID 30 Days #90 capsule 03/09/17 Allergies/Adverse Reactions: No Known Allergies Allergy (Verified 01/27/12 19:02) Review of Systems Constitutional: ABSENT: chills, fever(s), headache(s), weight gain, weight loss Eyes: ABSENT: visual disturbances Ears: ABSENT: hearing changes Cardiovascular: ABSENT: chest pain, dyspnea on exertion, edema, orthropnea, palpitations Respiratory: ABSENT: cough, hemoptysis Gastrointestinal: ABSENT: abdominal pain, constipation, diarrhea, hematemesis, hematochezia, nausea, vomiting Genitourinary: ABSENT: dysuria, hematuria Musculoskeletal: PRESENT: other - Pain. ABSENT: joint swelling Integumentary: ABSENT: rash, wounds Neurological: ABSENT: abnormal gait, abnormal speech, confusion, dizziness, focal weakness, syncope Psychiatric: ABSENT: anxiety, depression, homidical ideation, suicidal ideation Endocrine: ABSENT: cold intolerance, heat intolerance, polydipsia, polyuria Hematologic/Lymphatic: ABSENT: easy bleeding, easy bruising Physical Exam Vital Signs: Temp Pulse Resp BP Pulse Ox 98.8 F 102 H 20 112/51 L 89 L 03/09/17 13:22 03/09/17 13:22 03/09/17 13:22 03/09/17 13:22 03/09/17 13:22 Intake & Output 03/08/17 03/09/17 03/10/17 06:59 06:59 06:59 Weight 90.3 kg General appearance: PRESENT: no acute distress, obese, well-developed, well- nourished Head exam: PRESENT: normocephalic Eye exam: PRESENT: EOMI. ABSENT: scleral icterus Ear exam: PRESENT: normal external ear exam Mouth exam: PRESENT: moist Neck exam: ABSENT: carotid bruit, JVD, lymphadenopathy, thyromegaly Respiratory exam: PRESENT: clear to auscultation michael. ABSENT: rales, rhonchi, wheezes Cardiovascular exam: PRESENT: RRR. ABSENT: diastolic murmur, rubs, systolic murmur GI/Abdominal exam: PRESENT: normal bowel sounds, soft. ABSENT: distended, guarding, mass, organolmegaly, rebound, tenderness Rectal exam: PRESENT: deferred Extremities exam: PRESENT: full ROM, other - Right thigh and leg edema. Hip dressing in place with swelling and mild erythema leg is flexed and patient continues to lie on her left side.. ABSENT: calf tenderness, clubbing, pedal edema Neurological exam: PRESENT: alert, awake, oriented to person, oriented to place , oriented to time, oriented to situation, CN II-XII grossly intact. ABSENT: motor sensory deficit Psychiatric exam: PRESENT: appropriate affect, normal mood. ABSENT: homicidal ideation, suicidal ideation Skin exam: PRESENT: dry, intact, warm. ABSENT: cyanosis, rash Results Laboratory Results: 03/09/17 14:37 03/09/17 14:37 WBC 11.9 H RBC 3.58 L Hgb 9.9 L Hct 29.9 L MCV 84 MCH 27.5 MCHC 33.0 RDW 16.5 H Plt Count 452 H Seg Neutrophils % 75.7 Lymphocytes % 14.9 Monocytes % 5.2 Eosinophils % 3.7 Basophils % 0.5 Absolute Neutrophils 9.0 H Absolute Lymphocytes 1.8 Absolute Monocytes 0.6 Absolute Eosinophils 0.4 Absolute Basophils 0.1 Impressions: Femur X-Ray 03/09/17 00:00 IMPRESSION: COMMINUTED FRACTURE OF THE FEMUR WITH EXTENSIVE HARDWARE. DIFFICULT TO DETERMINE IF THERE HAS BEEN SIGNIFICANT CHANGE COMPARED INTRAOPERATIVE IMAGES DUE TO DIFFERENCES IN POSITIONING. Assessment & Plan - Diagnosis (1) Postoperative pain of extremity Is this a current diagnosis for this admission?: Yes Plan: Patient was given a prescription for oxycodone 5 mg every 4 as needed for pain. Patient also given a prescription for Lyrica 25 mg 3 times daily. Patient given a prescription for baclofen 5 mg twice daily. Patient given a one-time dose of morphine IV push and Toradol. Note that patient was given a one-time doses of the liver, baclofen and oxycodone. Arrangements are being made to take patient back home. states he will have patient scripts filled first thing in the morning. - Time Time Spent: 30 to 50 Minutes Anticipated discharge: Home, Home with Homehealth
[2017-03-09] MEDS ORDERED: PREGABALIN 25 MG CAPSULE PO ONE (17:00)
[2017-03-09] MEDS ORDERED: KETOROLAC TROMETHAMINE INJ/PF 30 MG/1 ML SDV IV ONE (17:00)
[2017-03-09] MEDS ORDERED: BACLOFEN 10 MG TABLET PO ONE (17:00)
[2017-03-09] MEDS ORDERED: OXYCODONE HCL IR 5 MG TABLET PO ONE (17:00)
[2017-03-09] MEDS ORDERED: BACLOFEN 10 MG TABLET ONE (17:23)
[2017-03-09 17:24] VITALS: BP 103/52
== END 2017-03-09 17:40 | disposition home or self-care (01) ==
LOC: ER 13:09
DX: G89.18 Other acute postprocedural pain (principal); M25.551 Pain in right hip; Z98.890 Other specified postprocedural states; I10 Essential (primary) hypertension; Z86.73 Personal history of transient ischemic attack (TIA), and cerebral infarction without residual deficits; Z90.710 Acquired absence of both cervix and uterus
CPT/HCPCS: 99283; 36415; 85025; 73552; J1885; J2270; J3490

== ENCOUNTER 2017-04-02 12:36 | Emergency (ER) | payer OTHER, MEDICAID ==
--- NOTE | 2017-04-02 13:24 | RADIOLOGY REPORT (SQ) ---
EXAM DESCRIPTION: HIP RIGHT AP/LATERAL COMPLETED DATE/TIME: 04/02/2017 1:02 pm REASON FOR STUDY: bed 12 s/p fall with tenderness COMPARISON: 02/27/2017 NUMBER OF VIEWS: Two views. TECHNIQUE: AP pelvis and additional frog-leg view of the right hip. LIMITATIONS: None. FINDINGS: MINERALIZATION: Normal. RIGHT HIP: Patient is status post replacement of the right hip prosthesis identified on the previous study. The current right hip prosthesis appears well seated in the acetabulum and proximal femoral m edullary canal. Wire sutures and an orthopedic plate are identified at the level of the proximal rig ht femur. There has been interval reduction of the previously described fracture of the proximal rig ht femur. LEFT HIP: Patient is status post left total hip replacement. No acute fracture is identified. PUBIS AND ISCHIUM: No fracture. PELVIS: No fracture. SACRUM: No fracture or dislocation. No worrisome bone lesions. LOWER LUMBAR SPINE: No fracture or dislocation. No worrisome bone lesions. No significant disc disea se. SOFT TISSUES: No findings. OTHER: No other significant finding. IMPRESSION: Bilateral total hip replacements as noted above. There has been interval reduction of t he previously described fracture of the proximal right femur with wire sutures and an orthopedic plat e being identified. No definite acute fractures are identified TECHNICAL DOCUMENTATION: JOB ID: [id number] [employer]- All Rights Reserved
--- NOTE | 2017-04-02 13:49 | ER Document Report ---
ED Hip Pain/Injury - General Chief Complaint: Hip Pain Stated Complaint: BODY PAIN Time Seen by Provider: 04/02/17 13:17 Notes: Patient is having pain in her right hip. Patient is bed confined secondary to contractures of both of her legs and previous fractures of that right femur and bilateral total hip replacements. She was being assisted this morning and rolling onto her left side when she was pushed over the right hip area and the educational assistant teacher felt a crack and the patient complained of severe pain in that hip. She does not ambulate normally and is not able to cooperate very well with evaluation of her lower extremities. She did not fall and was not dropped this morning. History provider is her . Patient has a history of dementia and is not a good historian. TRAVEL OUTSIDE OF THE [place] IN LAST 30 DAYS: No - Related Data Allergies/Adverse Reactions: No Known Allergies Allergy (Verified 04/02/17 12:39) Past Medical History - Social History Smoking Status: Never Smoker Chew tobacco use (# tins/day): No Frequency of alcohol use: None Drug Abuse: None Family History: Reviewed & Not Pertinent, Malignancy Patient has suicidal ideation: No Patient has homicidal ideation: No - Past Medical History Cardiac Medical History: Reports: Hx Hypertension Neurological Medical History: Reports: Hx Cerebrovascular Accident - 2006, FROM BACTERIAL MENINGITIS PSEUDAMONAS, Hx Seizures - LAST IN 2008 Endocrine Medical History: Reports: Hx Hypothyroidism Malignancy Medical History: Reports: Hx Breast Cancer Psychiatric Medical History: Reports: Hx Dementia, Hx Depression Past Surgical History: Reports: Hx Breast Surgery - L lumpectomy, Hx Hysterectomy, Hx Orthopedic Surgery - bilateral hip replacement, R rotator cuff repair, R ankle fx and reapir - Immunizations Hx Diphtheria, Pertussis, Tetanus Vaccination: No Hx Pneumococcal Vaccination: 03/16/11 Review of Systems - Review of Systems Notes: CONSTITUTIONAL : Denies fever. CARDIOVASCULAR: Denies chest pain. RESPIRATORY: Denies cough, chest congestion, or shortness of breath. GASTROINTESTINAL: Denies abdominal pain or nausea, vomiting, or diarrhea. GENITOURINARY: Denies difficulty or painful urinating, urinary frequency, blood in urine. Extremities: See HPI. Physical Exam - Vital signs Vitals: Temp Pulse Resp BP Pulse Ox 98.7 F 99 18 127/63 H 95 04/02/17 12:40 04/02/17 12:40 04/02/17 12:40 04/02/17 12:40 04/02/17 12:40 Interpretation: Normal - Notes Notes: PHYSICAL EXAMINATION: GENERAL: Well-appearing, no acute distress. HEAD: Atraumatic, normocephalic. NECK: Normal range of motion, supple. LUNGS: Breath sounds clear and equal bilaterally. HEART: Regular rate and rhythm without murmurs heard. ABDOMEN: Soft, nontender. No guarding or rebound or masses felt. Lower extremities with severe contractures. Cannot straighten either leg. Tender to press over the right hip. Course - Vital Signs Vital signs: Temp Pulse Resp BP Pulse Ox 98.2 F 86 20 126/82 H 100 04/02/17 14:13 04/02/17 14:13 04/02/17 14:13 04/02/17 14:13 04/02/17 14:13 - Diagnostic Test Radiology results interpreted by me: 04/02/17 19:59 X-rays show no fractures or dislocations or deformities. Discharge - Discharge Clinical Impression: Injury of right hip and thigh, Muscle strain Condition: Stable Disposition: HOME, SELF-CARE Additional Instructions: MUSCLE STRAIN: You have strained a muscle -- torn the fibers within the muscle. This often occurs with strenuous exertion, or during an injury that suddenly stretches the muscle. The seriousness of a strain varies. Some strains heal within days, others cause problems for months. X-rays cannot show a muscle strain. X-rays are taken only if symptoms suggest that a fracture could be present. The usual treatment of a muscle strain is rest and ice packs. Sometimes, a sling, splint, or crutches may be necessary to rest the muscle. The muscle can be used again once pain subsides. Severe strains require a special exercise and stretching program to prevent permanent stiffness and disability. Your doctor will advise you if this will be necessary. Call the doctor immediately if pain or swelling becomes severe, or if numbness or discoloration develop. Your x-rays show old surgery. No new fractures or dislocations seen today. Take your own pain medications that you have been prescribed and have at home. ICE PACKS: Apply ice packs frequently against the painful area. Many different schedules are recommended, such as "20 minutes on, 20 minutes off" or "one hour ice, two hours rest." If you need to work, you may need to go longer between ice treatments. You should plan to have the area ice packed AT LEAST one fourth of the time. The ice should be applied over the wrap, tape, or splint, or over a layer of cloth -- not directly against the skin. Some ice bags have a built-in cloth and can be put directly on the skin. FOLLOW-UP CARE: If you have been referred to a physician for follow-up care, call the physician s office for an appointment as you were instructed or within the next two days. If you experience worsening or a significant change in your symptoms, notify the physician immediately or return to the Emergency Department at any time for re-evaluation. Follow-up with Dr. Yeh if not better in 1 week. Referrals: IRIS PAUL MD [Primary Care Provider] - Follow up as needed
[2017-04-02 14:14] VITALS: BP 126/82
== END 2017-04-02 14:14 | disposition home or self-care (01) ==
LOC: ER 12:36
DX: S79.911A Unspecified injury of right hip, initial encounter (principal); M79.1 Myalgia; X58.XXXA Exposure to other specified factors, initial encounter; I10 Essential (primary) hypertension; E03.9 Hypothyroidism, unspecified; Z96.643 Presence of artificial hip joint, bilateral; Z86.73 Personal history of transient ischemic attack (TIA), and cerebral infarction without residual deficits; Z85.3 Personal history of malignant neoplasm of breast; Z90.710 Acquired absence of both cervix and uterus
CPT/HCPCS: 99283

== ENCOUNTER 2017-07-29 08:04 | Emergency (ER) | payer OTHER, MEDICAID ==
--- NOTE | 2017-07-29 09:22 | RADIOLOGY REPORT (SQ) ---
EXAM DESCRIPTION: HIP RIGHT AP/LATERAL COMPLETED DATE/TIME: 07/29/2017 8:58 am REASON FOR STUDY: pain COMPARISON: 02/27/2017 NUMBER OF VIEWS: 4 images total TECHNIQUE: AP pelvis and additional frog-leg view of the right hip. LIMITATIONS: Detail limited by diffuse demineralization and difficulty positioning. FINDINGS: MINERALIZATION: Diffuse demineralization RIGHT HIP: No acute fractures identified. No dislocation of the hip prosthesis. Intact wire sutures proximal femur. Old fracture. LEFT HIP: No acute fracture or dislocation hip prosthesis. PUBIS AND ISCHIUM: No fracture. PELVIS: No fracture. SACRUM: Limited visualization LOWER LUMBAR SPINE: Limited visualization SOFT TISSUES: No findings. OTHER: If an occult fracture suspected clinically, consider followup imaging. IMPRESSION: Bilateral hip arthroplasties. No obvious acute fractures. TECHNICAL DOCUMENTATION: JOB ID: [id number] [employer]- All Rights Reserved Reading location - IP/workstation name: [email or web address]
[2017-07-29] MEDS ORDERED: HYDROCODONE/ACETAMINOPHEN 5-325 MG TABLET PO ONE (09:39)
[2017-07-29] MEDS ORDERED: FENTANYL CITRATE INJ/PF 100 MCG/2 ML AMPUL IV ONE (09:40)
--- NOTE | 2017-07-29 10:51 | ER Document Report ---
ED General - General Chief Complaint: Hip Pain Stated Complaint: RIGHT HIP PAIN Time Seen by Provider: 07/29/17 08:27 Notes: 61-year-old female. Complaining of right hip pain. Otis a pop. History of dislocation. Also complaining of right big toe pain. Patient bedridden. Has had multiple dislocations of the right hip in the past. Seen by Dr. Yeh recently for reduction. TRAVEL OUTSIDE OF THE [place] IN LAST 30 DAYS: No - HPI Onset: Just prior to arrival Onset/Duration: Sudden Quality of pain: Achy Severity: Moderate Pain Level: 2 - Related Data Allergies/Adverse Reactions: No Known Allergies Allergy (Verified 04/02/17 12:39) Past Medical History - General Information source: Patient, [facility] Records - Social History Smoking Status: Never Smoker Chew tobacco use (# tins/day): No Frequency of alcohol use: None Drug Abuse: None Lives with: Family Family History: Reviewed & Not Pertinent, Malignancy Patient has suicidal ideation: No Patient has homicidal ideation: No - Past Medical History Cardiac Medical History: Reports: Hx Hypercholesterolemia, Hx Hypertension Denies: Hx Coronary Artery Disease, Hx Heart Attack Pulmonary Medical History: Denies: Hx Asthma, Hx Bronchitis, Hx COPD, Hx Pneumonia, Hx Tuberculosis Neurological Medical History: Reports: Hx Cerebrovascular Accident - 2006, FROM BACTERIAL MENINGITIS PSEUDAMONAS, Hx Seizures - LAST IN 2008 Endocrine Medical History: Reports: Hx Hypothyroidism Renal/ Medical History: Denies: Hx Peritoneal Dialysis Malignancy Medical History: Reports: Hx Breast Cancer Musculoskeltal Medical History: Denies Hx Arthritis Psychiatric Medical History: Reports: Hx Dementia, Hx Depression Past Surgical History: Reports: Hx Breast Surgery - L lumpectomy, Hx Hysterectomy, Hx Orthopedic Surgery - bilateral hip replacement, R rotator cuff repair, R ankle fx and reapir - Immunizations Hx Diphtheria, Pertussis, Tetanus Vaccination: No Hx Pneumococcal Vaccination: 03/16/11 Review of Systems - Review of Systems Constitutional: No symptoms reported EENT: No symptoms reported Cardiovascular: No symptoms reported Respiratory: No symptoms reported Gastrointestinal: No symptoms reported Genitourinary: No symptoms reported Female Genitourinary: No symptoms reported Musculoskeletal: See HPI. denies: Neck pain, Deformity Skin: No symptoms reported Hematologic/Lymphatic: No symptoms reported Neurological/Psychological: No symptoms reported Physical Exam - Vital signs Interpretation: Normal - General General appearance: Appears well, Alert - HEENT Head: Normocephalic, Atraumatic Eyes: Normal Pupils: PERRL - Respiratory Respiratory status: No respiratory distress Chest status: Nontender Breath sounds: Normal Chest palpation: Normal - Cardiovascular Rhythm: Regular Heart sounds: Normal auscultation Murmur: No - Abdominal Inspection: Normal Distension: No distension Bowel sounds: Normal Tenderness: Nontender Organomegaly: No organomegaly - Back Back: Normal, Nontender - Extremities General upper extremity: Normal inspection, Nontender, Normal color, Normal ROM , Normal temperature General lower extremity: Tender, Normal color, Other - Mild pain with range of motion of the right hip. There is redness and swelling noted to the first metatarsal joint on the right foot. Appears to have mild breakdown in skin consistent with a bedsore. The right hip does not appear out of joint - Neurological Cognition: Normal Orientation: AAOx4 Hawley Coma Scale Eye Opening: Spontaneous Hawley Coma Scale Motor: Obeys Commands Sensory: Normal - Psychological Associated symptoms: Normal affect, Normal mood - Skin Skin Temperature: Warm Skin Moisture: Dry Skin Color: [place], Erythema, Other - Erythema, tenderness noted at the right first metatarsal Course - Re-evaluation Re-evalutation: 07/29/17 11:07 X-ray does not reveal dislocation. X-ray also ordered of the right foot to look for osteomyelitis. There is no fever but that is some redness. More likely based on patient's bedridden status this represents a bedsore. 07/29/17 11:37 Hip/Pelvis X-Ray 07/29/17 08:23 IMPRESSION: Bilateral hip arthroplasties. No obvious acute fractures. Foot X-Ray 07/29/17 09:39 IMPRESSION: Chronic changes. No acute fractures. Erosive change distal 1st metatarsal. Gout could be a consideration. Discharge - Discharge Clinical Impression: Hip pain Qualifiers: Laterality: right Qualified Code(s): M25.551 - Pain in right hip Decubitus ulcer Qualifiers: Pressure ulcer location: toe Pressure ulcer stage: stage 1 Laterality: right Qualified Code(s): L89.891 - Pressure ulcer of other site, stage 1 Condition: Good Disposition: HOME, SELF-CARE Instructions: Decubitus Ulcer ([facility]) Additional Instructions: Wear padding around that area on your right foot. Please follow-up with your regular doctor if symptoms persist. There is no evidence of dislocation. Take your regular pain medications and have the right foot as much as possible. Referrals: IRIS ORTIZ MD [Primary Care Provider] - Follow up as needed
--- NOTE | 2017-07-29 11:06 | RADIOLOGY REPORT (SQ) ---
EXAM DESCRIPTION: FOOT RIGHT 2 VIEWS COMPLETED DATE/TIME: 07/29/2017 10:40 am REASON FOR STUDY: pain COMPARISON: 07/31/2013 NUMBER OF VIEWS: 4 images total TECHNIQUE: AP, lateral and oblique radiographic images acquired of the right foot. LIMITATIONS: Difficulty positioning FINDINGS: MINERALIZATION: Diffuse demineralization. BONES: No obvious acute fracture. JOINTS: Hallux valgus great toe. Stable erosion laterally of the distal 1st metatarsal, gout could b e a consideration. Joint narrowing of the toes. SOFT TISSUES: No metallic foreign body. OTHER: If an occult fracture suspected clinically, consider followup filming. IMPRESSION: Chronic changes. No acute fractures. Erosive change distal 1st metatarsal. Gout could be a consideration. TECHNICAL DOCUMENTATION: JOB ID: [id number] [employer]- All Rights Reserved Reading location - IP/workstation name: [email or web address]
[2017-07-29] MEDS ORDERED: KETOROLAC TROMETHAMINE INJ/PF 30 MG/1 ML SDV IV ONE (11:53)
[2017-07-29 18:54] VITALS: BP 106/52
== END 2017-07-29 14:05 | disposition home or self-care (01) ==
LOC: ER 08:04
DX: L89.891 Pressure ulcer of other site, stage 1 (principal); M25.551 Pain in right hip; M79.674 Pain in right toe(s); I10 Essential (primary) hypertension
CPT/HCPCS: 99283; 96374; 96375; 73620; 73502; J3010; J1885

== ENCOUNTER 2019-10-19 11:39 | Emergency (ER) | payer OTHER, MEDICAID ==
[2019-10-19] MEDS ORDERED: NORMAL SALINE 1000 ML 1,000 ML IV ONE (13:43)
[2019-10-19 14:04] LABS: ABSOLUTE BASOPHILS # (AUTO) 0.1 10^3/uL (0.0-0.2); ABSOLUTE EOSINOPHILS # (AUTO) 0.2 10^3/uL (0.0-0.6); ABSOLUTE LYMPHOCYTES (AUTO) 2.1 10^3/uL (0.5-4.7); ABSOLUTE MONOCYTES (AUTO) 0.8 10^3/uL (0.1-1.4); ABSOLUTE NEUT (AUTO) 6.9 10^3/uL (1.7-8.2); BASOPHILS % (AUTO) 0.6 % (0-2); EOSINOPHILS % (AUTO) 1.8 % (0-6); HEMATOCRIT 41.1 % (36.0-47.0); HEMOGLOBIN 13.6 g/dL (12.0-15.5); LYMPHOCYTES % (AUTO) 20.7 % (13-45); MEAN CORPUSCULAR HEMOGLOBIN 30.6 pg (27.0-33.4); MEAN CORPUSCULAR HGB CONC 33.1 g/dL (32.0-36.0); MEAN CORPUSCULAR VOLUME 93 fl (80-97); MONOCYTES % (AUTO) 7.7 % (3-13); PLATELET COUNT 282 10^3/uL (150-450); RED BLOOD COUNT 4.44 10^6/uL (3.72-5.28); RED CELL DISTRIBUTION WIDTH 14.7 % (11.5-14.0); SEGMENTED NEUTROPHILS % (AUTO) 69.2 % (42-78); TOTAL CELLS COUNTED % (AUTO) 100 %
[2019-10-19 14:21] LABS: ALBUMIN 4.1 g/dL (3.5-5.0); ALKALINE PHOSPHATASE 87 U/L (38-126); ANION GAP 8 (5-19); ASPARTATE AMINO TRANSFERASE 27 U/L (14-36); BILIRUBIN,TOTAL 0.4 mg/dL (0.2-1.3); BLOOD UREA NITROGEN 22 mg/dL (7-20); CALCIUM 9.5 mg/dL (8.4-10.2); CARBON DIOXIDE 27 mmol/L (22-30); CHLORIDE 104 mmol/L (98-107); GLUCOSE 151 mg/dL (75-110); POTASSIUM 4.1 mmol/L (3.6-5.0); TOTAL PROTEIN 7.3 g/dL (6.3-8.2)
[2019-10-19] MEDS ORDERED: ONDANSETRON HCL INJ/PF 4 MG/2 ML SDV IV ONE (14:32)
--- NOTE | 2019-10-19 15:25 | ER Document Report ---
ED General - General Chief Complaint: Diarrhea Stated Complaint: DIARRHEA Primary Care Provider: IRIS ORTIZ MD [Primary Care Provider] - Follow up as needed Notes: 64-year-old female with past medical history of chronic pain, dementia, thyroid issues presenting today with episodes of diarrhea starting this morning. She is told me that she had 1 episode of voluminous diarrhea that was nonbloody starting this morning. She states she is nauseous but no episodes of vomiting. She states that her daughter called EMS because she does not want to take care of her anymore. States to have a lipase relationship. She denies any other symptoms at this time headache, fevers, chills, shortness of breath or additional symptoms. She reports she is eating. TRAVEL OUTSIDE OF THE [place] IN LAST 30 DAYS: No - Related Data Allergies/Adverse Reactions: No Known Allergies Allergy (Verified 04/02/17 12:39) Past Medical History - Social History Smoking Status: Unknown if Ever Smoked Family History: Reviewed & Not Pertinent, Malignancy Patient has homicidal ideation: No - Past Medical History Cardiac Medical History: Reports: Hx Hypercholesterolemia, Hx Hypertension Denies: Hx Coronary Artery Disease, Hx Heart Attack Pulmonary Medical History: Denies: Hx Asthma, Hx Bronchitis, Hx COPD, Hx Pneumonia, Hx Tuberculosis Neurological Medical History: Reports: Hx Cerebrovascular Accident - 2006, FROM BACTERIAL MENINGITIS PSEUDAMONAS, Hx Seizures - LAST IN 2008 Endocrine Medical History: Reports: Hx Hypothyroidism Renal/ Medical History: Denies: Hx Peritoneal Dialysis Malignancy Medical History: Reports: Hx Breast Cancer Musculoskeletal Medical History: Denies Hx Arthritis Psychiatric Medical History: Reports: Hx Dementia, Hx Depression Past Surgical History: Reports: Hx Breast Surgery - L lumpectomy, Hx Hys terectomy, Hx Orthopedic Surgery - bilateral hip replacement, R rotator cuff repair, R ankle fx and reapir - Immunizations Hx Diphtheria, Pertussis, Tetanus Vaccination: No Hx Pneumococcal Vaccination: 03/16/11 Review of Systems - Review of Systems Constitutional: No symptoms reported EENT: No symptoms reported Cardiovascular: No symptoms reported Respiratory: No symptoms reported Gastrointestinal: See HPI Genitourinary: No symptoms reported Female Genitourinary: No symptoms reported Musculoskeletal: No symptoms reported Skin: No symptoms reported Hematologic/Lymphatic: No symptoms reported Neurological/Psychological: No symptoms reported Physical Exam - Vital signs Vitals: Resp Pulse Ox 16 92 10/19/19 11:39 10/19/19 11:39 Interpretation: Normal - Notes Notes: Adult General: GENERAL: Alert, interacts well. No acute distress HEAD: Normocephalic, atraumatic EYES: Extraocular movements intact. ENT: Airway patent. Nares patent. NECK: Full range of motion. Supple. Trachea midline. No lymphadenopathy. LUNGS: Clear to auscultation bilaterally, no wheezes, rales, or rhonchi. No respiratory distress. Nontender chest wall. HEART: Regular rate and rhythm. No murmurs, rubs or gallops. ABDOMEN: Soft, enlarged, not distended. tender in all four quadrant. (-) [place] sign. Bowel sounds present in all 4 quadrants. No rebound, guarding or masses. GENITOURINARY: Deferred EXTREMITIES: Unable to move lower extremities. No edema, normal radial and dorsal pedis pulses bilaterally. No cyanosis. BACK: No cervical, thoracic, lumbar midline tenderness. No saddle anesthesia, normal distal neurovascular exam. Legs are bent and atrophied. NEUROLOGICAL: Alert and oriented x3. Normal speech. Strength 5/ 5 in all extremities. PSYCH: Normal affect, normal mood. SKIN: Warm, dry, normal turgor. No rashes or lesions noted. Course - Re-evaluation Re-evalutation: 10/19/19 15:30 Called the patients . He initially says that she has occasional diarrhea for which she has loperamide for. Patient states that he has to call me back. I called the back. He now states that there is been 5 episodes of diarrhea that was reported by his daughter and he states it is not normal. Patient blood pressure is now up to 125/70. She has no elevated white count at this time. She remains afebrile, she remains nontachycardia She has not had any episodes of diarrhea at this time. 10/19/19 15:38 Patient is resting comfortably in the bed. When asked again what medication she takes she says she does not know, her manages her medications. She states that she still slightly nauseous. States she is does not have dysuria. Continues to state that she feels okay until her abdomen is palapted. She is tender on palpation. I will order a CT scan. 10/19/19 15:56 I called the daughter. She states she had 5 episodes of diarrhea in one hour. She called the ambulance because she felt her mom would be better taken care of by someone else due to the amount of diarrhea. She infomred me her moms has a history of dementia, breast cancer, bilateral hip replacement, is bedridden. Has a history of thryoid issue. Takes loperamide, atorvastatin, quidapine, lovectan, b12, vitamin E, lorazapam, pregablin and morphine. 10/19/19 19:03 CT scan shows no acute findings. Patient remains in no acute distress. Has had zero episodes of diarrhea while in the ER. I suspect her symptoms are viral in nature. I will go ahead and discharge the patient. She may follow up with her primary care. She may also return to the emergency department for worsening symptoms or the development of new symptoms. Patient verbalizes understanding of instructions all questions answered. - Vital Signs Vital signs: Temp Pulse Resp BP Pulse Ox 98 F 98 16 125/77 94 10/19/19 12:49 10/19/19 12:49 10/19/19 20:01 10/19/19 20:01 10/19/19 20:01 - Laboratory Result Diagrams: 10/19/19 11:38 10/19/19 11:38 Laboratory results interpreted by me: 10/19/19 10/19/19 11:38 11:38 RDW 14.7 H BUN 22 H Glucose 151 H Discharge - Discharge Clinical Impression: Diarrhea Qualifiers: Diarrhea type: unspecified type Qualified Code(s): R19.7 - Diarrhea, unspecified Condition: Stable Disposition: HOME, SELF-CARE Instructions: Diarrhea, Nonspecific ([facility]) Additional Instructions: Please follow-up with your primary care provider as soon as possible. You have not had any diarrhea while in the emergency department but you did have tend erness on palpation to your abdomen. Your CT scan is unremarkable at this time. Please follow-up with your primary care provider. Please return to the emergency department for worsening symptoms or development of new symptoms. Referrals: IRIS ORTIZ MD [Primary Care Provider] - Follow up as needed
[2019-10-19] MEDS ORDERED: SIMETHICONE 80 MG TAB.CHEW PO ONE (17:05)
--- NOTE | 2019-10-19 18:51 | RADIOLOGY REPORT (SQ) ---
EXAM DESCRIPTION: CT ABD/PELVIS WITH IV ONLY IMAGES COMPLETED DATE/TIME: 10/19/2019 6:29 pm REASON FOR STUDY: abdominal tenderness COMPARISON: None. TECHNIQUE: CT scan of the abdomen and pelvis performed using helical scanning technique with dynamic intravenous contrast injection. No oral contrast. Images reviewed with lung, soft tissue, and bone windows. Reconstructed coronal and sagittal MPR images reviewed. Delayed images for evaluation of the urinary system also acquired. All images stored on PACS. All CT scanners at this facility use dose modulation, iterative reconstruction, and/or weight based d osing when appropriate to reduce radiation dose to as low as reasonably achievable (ALARA). [facility]: Dose Right [facility]: CareDose [facility]: Dose Right [facility]: Teradose 4D [facility]: Playfire CONTRAST TYPE AND DOSE: contrast/concentration: Isovue 350.00 mmol/ml; Total Contrast Delivered: 100 .0 ml; Total Saline Delivered: 66.0 ml RENAL FUNCTION: BUN 22 creatinine 0.6 RADIATION DOSE: CT Rad equipment meets quality standard of care and radiation dose reduction techniq ues were employed. CTDIvol: 16.6 - 20.0 mGy. DLP: 1940 mGy-cm.. LIMITATIONS: Artifact in the pelvis from hip arthroplasties. FINDINGS: LOWER CHEST: No significant findings. No nodules or infiltrates. LIVER: Normal size. No masses. No dilated ducts. SPLEEN: Normal size. No focal lesions. PANCREAS: No masses. No significant calcifications. No adjacent inflammation or peripancreatic fluid collections. Pancreatic duct not dilated. GALLBLADDER: No identified stones by CT criteria. No inflammatory changes to suggest cholecystitis. ADRENAL GLANDS: No significant masses or asymmetry. RIGHT KIDNEY AND URETER: No solid masses. No significant calcifications. No hydronephrosis or hyd roureter. LEFT KIDNEY AND URETER: No solid masses. No significant calcifications. No hydronephrosis or hydr oureter. AORTA AND VESSELS: No aneurysm. No dissection. Renal arteries, SMA, celiac without stenosis. RETROPERITONEUM: No retroperitoneal adenopathy, hemorrhage or masses. BOWEL AND PERITONEAL CAVITY: No masses or inflammatory changes. No free fluid or peritoneal masses. APPENDIX: Not identified. PELVIS: No obvious pelvic mass. ABDOMINAL WALL: No masses. No hernias. BONES: No significant or acute findings. OTHER: No other significant finding. IMPRESSION: Evaluation of the mid and lower pelvis is limited by artifact. No acute finding in the abdomen or pelvis. TECHNICAL DOCUMENTATION: JOB ID: [id number] Quality ID # [id number]: Final reports with documentation of one or more dose reduction techniques (e.g., Au tomated exposure control, adjustment of the mA and/or kV according to patient size, use of iterative reconstruction technique) 2010 [employer]- All Rights Reserved Reading location - IP/workstation name: [email or web address]
[2019-10-19 20:09] VITALS: BP 125/77
== END 2019-10-19 21:29 | disposition home or self-care (01) ==
LOC: ER 11:39
DX: R19.7 Diarrhea, unspecified (principal); R11.0 Nausea; R10.811 Right upper quadrant abdominal tenderness; R10.812 Left upper quadrant abdominal tenderness; R10.813 Right lower quadrant abdominal tenderness; R10.814 Left lower quadrant abdominal tenderness; E78.00 Pure hypercholesterolemia, unspecified; G89.29 Other chronic pain; I10 Essential (primary) hypertension; Z79.899 Other long term (current) drug therapy; Z79.891 Long term (current) use of opiate analgesic; Z85.3 Personal history of malignant neoplasm of breast
CPT/HCPCS: 99285; 96361; 96374; 36415; 83690; 84443; 85025; 80053; 74177; J2405; J7030